=== PATIENT | female | born 1945 | race Caucasian/White ===

== ENCOUNTER 2023-03-01 08:11 | Inpatient (IN) | payer MEDICARE, MEDICAID, SELFPAY ==
[2023-03-01] VITALS (47 sets, daily range): BP systolic 76–166; BP diastolic 31–136; PULSE 83–118; RESP 11–21; TEMP 36.6–36.7; O2SAT 80–100; BMI 35.5
--- NOTE | ~2023-03-01 | CT_ITS ---
EXAMINATION: CTA chest PE protocol DATE: 03/01/2023 13:17 INDICATION: Shortness of breath TECHNIQUE: Computed tomography angiography (CTA) of the chest was performed with 100 mL Omnipaque-350 intravenous contrast timed to evaluate the pulmonary arteries. Coronal maximum intensity projection 3D-reconstructions were created by the technologist. Automated exposure control and iterative reconst ruction technique were employed. Exam dose: 574.14 mGy-cm total exam DLP. COMPARISON: 03/01/2023 portable AP chest FINDINGS: There is diagnostic contrast enhancement of the pulmonary arteries. There is minimal subseg mental intraluminal pulmonary arterial thrombus in the posterior left lower lobe. There is cardiomegaly. No pericardial effusion. There is coronary artery calcification. There is thoracic aortic and great vessel calcification but no thoracic aortic aneurysm or dissection . There is prominent abdominal aortic calcification as well as calcification and apparently a vascular stent at the origin of the right renal artery, calcification at the origins of the left renal artery, celiac trunk and particularly the origin of the superior mesenteric artery. No hilar or mediastinal mass lesion or lymphadenopathy is noted. There are diffuse scattered patchy groundglass infiltrates throughout both lungs involving all lobes. Findings suggest bilateral pneumonia. Normal morphology of the adrenal glands. Status post cholecystectomy. There is evidence of surgical fusion at the C5-6 and C6-7 levels. There is diffuse idiopathic skeleta l hyperostosis of the thoracic spine. There is fusion at T6-T8. IMPRESSION: Minimal posterior segmental left lower lobe pulmonary embolism Diffuse patchy groundglass infiltrates throughout both lungs suggesting bilateral pneumonia, possibly Covid Reviewed, dictated and finalized at [facility]. Reviewed, dictated and finalized at [facility]. MANAGEMENT PROFESSIONAL IMPRESSION: Minimal posterior segmental left lower lobe pulmonary embolism Diffuse patchy groundglass infiltrates throughout both lungs suggesting bilater al pneumonia, possibly Covid
--- NOTE | ~2023-03-01 | XR_ITS ---
XR chest 1V portable DATE: 03/01/2023 09:03 INDICATION: Shortness of breath. Left leg wound. TECHNIQUE: Portable upright AP chest 12/31/2023 at 0858 hours COMPARISON: None FINDINGS: There are scattered mild patchy infiltrates and/atelectasis involving left upper, mid and b ilateral lower lung zones, most prominent in the right lower lung. Cannot exclude pneumonia. Normal heart size. Mild aortic arch calcification. No hilar or mediastinal enlargement is evident. There is minimal if any pleural effusion. No pneumothorax. Osteopenia. Degenerative spurring and mild dextroscoliosis of the thoracic spine. IMPRESSION: Scattered mild patchy bilateral infiltrate and/or atelectasis Reviewed, dictated and finalized at [facility]. ND CONTROL APPROACH TECHNICIAN
--- NOTE | 2023-03-01 08:41 | PC.NURSE ---
Addendum entered by Steffany Dumont, RN 03/01/23 11:25: Winifred, not Stella* Original Note: Per Stella at [facility], upon patient arrival they were to be on 1L NC at , but they did not realize this until about a week in . She states patient had previously been on CPAP, but taken off and placed on 1L NC. Per NH, they have been having to increase to 2-3L NC to keep patient above 90% . EDP Dr. Blackwell made aware.
--- NOTE | 2023-03-01 08:49 | ED.GENADULT ---
HPI - General Adult General Chief complaint: Wound/Laceration Stated complaint: knee pain Time Seen by Provider: 03/01/23 08:17 History of Present Illness HPI narrative: patient is a 77-year-old female who presents the ER for a wound to left knee. In January of 2023 patient had a fall resulting in hematoma to the medial left knee. She ended up having to be hospitalized at [facility] in [place]. She underwent surgery and had a wound VAC placed for a large wound to the area. She is in a senior living down here. She has been seen by Dr. Luque at the with Plastic surgery. Was last evaluated yesterday. There is a plan to do a skin graft to the area. There has been no acute change the area to cause her to come in today. It is noted however that the patient has been on oxygen since going to the senior living. It turns out she is only supposed to be on it at night. She had a sleep study and is supposed to be using CPAP. Unfortunately she has had increased O2 requirement is currently on 2 L constantly. Patient does have some lower extremity edema noted. She has no reports of chest pain or shortness of breath or cough. Related Data Allergies Allergy/AdvReac Type Severity Reaction Status Date / Time No Known Drug Allergies Allergy Verified 03/01/23 14:10 NKA Allergy Unknown Uncoded 08/20/02 12:03 Review of Systems Review of Systems: All systems reviewed & are unremarkable except as noted in HPI and below Constitutional: Constitutional: Reports no additional constitutional complaints ENT: Reports system reviewed and no additional complaints, except as documented Cardiovascular: Cardiovascular: Reports no additional cardiovascular complaints Respiratory: Respiratory: Reports no additional respiratory complaints Gastrointestinal: Gastrointestinal: Reports no additional gastrointestinal complaints Genitourinary: Genitourinary: Reports no additional female genitourinary complaints Musculoskeletal: Musculoskeletal: Reports no additional musculoskeletal complaints Integumentary/Breasts: Comments: Chronic non healing wound left knee [facility] Past Medical History Medical History (Updated 03/01/23 @ 18:17 by Lele Blackwell MD) COPD (chronic obstructive pulmonary disease) History of diabetes mellitus, type II Surgical History Surgical History (Updated 03/01/23 @ 08:53 by Lele Blackwell MD) History of carpal tunnel surgery History of cholecystectomy History of hysterectomy Family History Family History (Updated 07/29/16 @ 23:19 by DOCTOR UNKNOWN) Father Family history of obesity Cerebrovascular accident Family history of diabetes mellitus in first degree relative Mother Family history of obesity Family history of diabetes mellitus in first degree relative Sibling Family history of kidney disease Family history of diabetes mellitus in first degree relative Social History Social History Smoking status: Never smoker Alcohol intake: never Exam Narrative: GENERAL: Chronically ill-appearing, well-nourished, and in no acute distress. HEAD: Normocephalic, atraumatic. ENT: Mucous membranes moist. NECK: Supple. CHEST: Clear to auscultation. No respiratory distress. HEART: Regular rate and rhythm. Normal peripheral pulses. ABDOMEN: Soft, nontender, nondistended. EXTREMITIES: Normal range of motion. +2 edema. SKIN: Warm, dry, no rash. large nonhealing wound medial left knee down to the muscle. No overt cellulitis or purulent drainage. 4X4s saturated with serous fluid. NEURO: Alert and oriented x3. PSYCH: Normal mood and affect. Course Course Emergency Course: Patient with small PE and also pneumonia. IV antibiotics started. Patient will be started heparin in case debridement is required of her wound. Patient accepted by hospitalist. Vital Signs Vital signs: Vital Signs Temperature 98.1 F 03/01/23 08:23 Pulse Rate 88 03/01/23 08:23 Respiratory Rate
[2023-03-01 08:57] LABS: Basophils Absolute Auto 0.1 K/mm3 (0.0-0.1); Basophils Percent Auto 0.8 % (0.2-1.2); Eosinophils Absolute Auto 0.3 K/mm3 (0-0.3); Eosinophils Percent Auto 3.8 % (0-4.4); Hematocrit 34.3 % (37.0-47.0); Hemoglobin 10.2 g/dL (12.0-15.0); Immature Granulocyte Absolute 0.12 K/mm3 (0.00-0.031); Immature Granulocyte Percent A 1.5 % (0-0.5); Lymphocytes Absolute Auto 1.12 K/mm3 (0.9-3.2); Lymphocytes Percent Auto 14.3 % (18.3-44.2); Mean Corpuscular HGB Conc 29.7 g/dl (32-36); Mean Corpuscular Hemoglobin 28.3 pg (26-34); Mean Corpuscular Volume 95.3 fl (80-100); Mean Platelet Volume 9.7 fl (7.4-10.4); Monocytes Absolute Auto 0.8 K/mm3 (0.1-0.6); Monocytes Percent Auto 10.1 % (2.6-8.5); Neutrophils Absolute Auto 5.5 K/mm3 (1.3-6.7); Neutrophils Percent Auto 69.5 % (45.5-73.1); Platelet Count Result 173 k/mm3 (150-375); Red Cell Distribution Width 14.7 % (11.5-14.5); White Blood Count 7.9 K/mm3 (4.5-10.0)
[2023-03-01 09:11] LABS: Alanine Aminotransferase 7 U/L (6-35); Alkaline Phosphatase 72 U/L (38-126); Anion Gap 9 mmol/L (8-16); Aspartate Amino Transferase 18 U/L (14-36); Bilirubin,Total 0.4 mg/dL (0.2-1.3); Blood Urea Nitrogen 32 mg/dL (7-17); Calcium 8.1 mg/dL (8.4-10.2); Carbon Dioxide 26 mmol/L (22-30); Chloride 103 mmol/L (98-107); Estimated Glomerular Filt Rate 48; Glucose 203 mg/dL (65-110); Potassium 4.3 mmol/L (3.4-5.0); Sodium 138 mmol/L (137-145)
[2023-03-01 09:21] LABS: NT Pro B Type Natriuretic Pept 569 pg/mL (19.9-100)
[2023-03-01 09:46] LABS: Glucose Point of Care 213 mg/dl (65-105)
[2023-03-01 14:32] LABS: Glucose Point of Care 195 mg/dl (65-105)
[2023-03-01] MEDS: HEPARIN SOD/D5W 100 UNITS/ML 25,000 UNITS/250 ML BAG 10 UNITS IV CONT (14:35)
[2023-03-01] MEDS: HEPARIN SODIUM 5,000 UNITS/ML VIAL 4500 UNITS IV PUSH (14:36)
[2023-03-01 15:02] LABS: Prothrombin Time 13.8 Seconds (11.1-14.7)
[2023-03-01 15:13] LABS: Influenza A QL RT-PCR Negative (Negative); Influenza B QL RT-PCR Negative (Negative); RSV RNA, RT-PCR Negative (Negative); SARS-CoV-2 RNA PCR Negative (Negative)
[2023-03-01 16:47] LABS: Glucose Point of Care 156 mg/dl (65-105)
[2023-03-01] MEDS: HYDROcodone/acetaminophen (*CRX) 5-325 MG TABLET 1 TAB PO (18:06)
--- NOTE | 2023-03-01 21:17 | ADMGEN ---
This patient, Caroline Rivas, was admitted to IMU Room 207-01. Patient/family oriented to hospital policies and general routines including ID bracelet, bed and alarms, visiting hours, pain management, procedures, bathroom and other care routines, personal items, smoking policy, room service/diet, and visiting hours. Information on how to activate the Rapid Response Team has been discussed. Patient/Family are encouraged to report perceived risks to care and to ask questions if they do not understand what they are told or what they should do.
--- NOTE | 2023-03-01 23:17 | PM.IMHP ---
H&P: HPI History of Present Illness Date/Time: 03/01/23 23:17 Chief Complaint: SOB, Wound Narrative: 77 y/o F presents here with SOB and wound to L knee with PMH of COPD, DM2, HTN, HLD, and RLS. Patient presents here with increasing shortness of breath over the past 4 days with a productive cough, unable to describe sputum. Reports subjective chills and fatigue. Reports that her daughter took her temperature and reported a fever, unclear what reading was but patient does not report subjective fevers. Reports one episode of acid-reflux like symptoms with one episode of emesis after SOB started without sensation of foreign material entering airway. Also following with plastics for open wound to left knee. Patient had fall mid-January where she subsequently developed a hematoma that was surgically managed at [facility] in [facility] one week after injury - likely underwent an evacuation and debridement with wound vac placement post-procedure. Has been seeing wound care at her facility, currently staying at [facility]. Saw Marina Luque MD with Plastic Surgery yesterday (02/28) for this wound. Plan was for left thigh debridement and skin graft. Initially sent here for the pain patient was experiencing with vac changes, no current changes in wound per patient and it was noted that patient had new O2 requirement since [facility] admission. Patient had previous sleep study which qualified her for a CPAP at night. Has no history of supplemental O2 requirement beyond the CPAP at night. Review of Systems Review of Systems: All systems reviewed & are unremarkable except as noted in HPI and below PMFSH Past Medical History Medical History COPD (chronic obstructive pulmonary disease) DM2 (diabetes mellitus, type 2) Essential (primary) hypertension HLD (hyperlipidemia) RLS (restless legs syndrome) Surgical History Surgical History History of carpal tunnel surgery History of cholecystectomy History of hysterectomy Family History Family History Father Family history of obesity Cerebrovascular accident Mother Family history of diabetes mellitus in first degree relative Family history of obesity Sibling Family history of kidney disease Social History Social History Smoking packs per day: 1 Smoking cigarettes per day: 20.0 Years smoked: 20 Smoking pack-years: 20.00 Smoking status: Former smoker Alcohol intake: never Substance use: never Do You Feel Safe in your Home?: Yes Lack of Transportation: No Lack of Food: Never True Current Housing: I Have Housing Concerned About Future Housing: No Difficulty Paying Gas/Electric Bills: No Difficulty Paying for Meds: No Currently Unemployed: No Education: Decline to Answer Difficulty w/ Childcare or Family Care: No Spiritual care concerns: No Meds Home Medications and Allergies Home Medications Medication Instructions Recorded Confirmed Type hydrocodone 7.5 mg-acetaminophen 2 tablet PO Q4H PRN pain #180 tabs 02/10/23 03/01/23 Rx 325 mg tablet albuterol sulfate 2 puff inhalation PRN 03/01/23 03/01/23 History atorvastatin 40 mg tablet 40 mg PO HS 03/01/23 03/01/23 History bimatoprost 0.01 % eye drops 1 drp EACH EYE HS 03/01/23 03/01/23 History (Cindi) bisacodyl 5 mg PO PRN 03/01/23 03/01/23 History carbidopa ER 25 mg-levodopa 100 mg 25 - 100 tablet PO TID 03/01/23 03/01/23 History tablet,extended release clonazepam 1 mg tablet 1 mg PO QHS #30 tabs 03/01/23 03/01/23 Rx diltiazem HCl 60 mg tablet 60 mg PO TID 03/01/23 03/01/23 History dorzolamide 22.3 mg-timolol 6.8 1 drp EACH EYE BID 03/01/23 03/01/23 History mg/mL eye drops furosemide 20 mg tablet 20 mg PO QID 03/01/23 03/01/23 History gabapentin 100
[2023-03-02] VITALS (17 sets, daily range): BP systolic 112–155; BP diastolic 34–68; PULSE 77–96; RESP 16–18; TEMP 36.1–37.2; O2SAT 93–99
[2023-03-02] MEDS: CEFEPIME 2 GM/NS 50 ML 2 GM/50 ML BAG IVPB ×3 (01:10→21:47)
[2023-03-02 01:50] LABS: Partial Thromboplastin Time 78.5 SECONDS (22.3-36.8)
[2023-03-02] MEDS: VANCOMYCIN 2,000 MG/NS 500 ML 2,000 MG/500 ML BAG 250 MG IVPB (02:00)
[2023-03-02 05:27] LABS: Basophils Percent Auto 0.7 % (0.2-1.2); Eosinophils Absolute Auto 0.2 K/mm3 (0-0.3); Eosinophils Percent Auto 3.2 % (0-4.4); Hemoglobin 9.5 g/dL (12.0-15.0); Immature Granulocyte Absolute 0.09 K/mm3 (0.00-0.031); Immature Granulocyte Percent A 1.5 % (0-0.5); Lymphocytes Absolute Auto 1.36 K/mm3 (0.9-3.2); Lymphocytes Percent Auto 22.9 % (18.3-44.2); Mean Corpuscular HGB Conc 29.7 g/dl (32-36); Mean Corpuscular Hemoglobin 27.5 pg (26-34); Mean Corpuscular Volume 92.8 fl (80-100); Mean Platelet Volume 9.9 fl (7.4-10.4); Monocytes Absolute Auto 0.7 K/mm3 (0.1-0.6); Monocytes Percent Auto 11.8 % (2.6-8.5); Neutrophils Absolute Auto 3.6 K/mm3 (1.3-6.7); Neutrophils Percent Auto 59.9 % (45.5-73.1); Platelet Count Result 164 k/mm3 (150-375); Red Blood Count 3.45 M/mm3 (4.2-5.4); Red Cell Distribution Width 14.6 % (11.5-14.5)
[2023-03-02 05:56] LABS: Alanine Aminotransferase 7 U/L (6-35); Albumin Level 2.8 g/dL (3.5-5.1); Alkaline Phosphatase 73 U/L (38-126); Anion Gap 2 mmol/L (8-16); Aspartate Amino Transferase 16 U/L (14-36); Bilirubin,Total 0.5 mg/dL (0.2-1.3); Blood Urea Nitrogen 20 mg/dL (7-17); CRP 6.4 mg/dL (<1.0); Calcium 7.9 mg/dL (8.4-10.2); Carbon Dioxide 33 mmol/L (22-30); Chloride 105 mmol/L (98-107); Estimated Glomerular Filt Rate 60; Glucose 175 mg/dL (65-110); Potassium 4.1 mmol/L (3.4-5.0); Sodium 140 mmol/L (137-145)
[2023-03-02 06:00] LABS: Hemoglobin A1C 6.4 % (<5.7)
[2023-03-02 07:20] LABS: Partial Thromboplastin Time 73.4 SECONDS (22.3-36.8)
[2023-03-02 07:51] LABS: Glucose Point of Care 201 mg/dl (65-105)
[2023-03-02 08:24] LABS: MRSA (PCR) NOT DETECTED (NOT DETECTE)
--- NOTE | 2023-03-02 08:28 | PM.IMPN ---
Progress Note: A&P Assessment and Plan (1) DM2 (diabetes mellitus, type 2): Code(s): E11.9 - Type 2 diabetes mellitus without complications Status: Acute (2) Essential (primary) hypertension: Code(s): I10 - Essential (primary) hypertension Status: Acute (3) Pneumonia: Qualifiers: Laterality: bilateral Lung location: unspecified part of lung Pneumonia type: due to unspecified organism Qualified Code(s): J18.9 - Pneumonia, unspecified organism Code(s): J18.9 - Pneumonia, unspecified organism Status: Acute (4) Hypoxia: Code(s): R09.02 - Hypoxemia Status: Acute (5) Pulmonary embolism: Qualifiers: Pulmonary embolism type: single subsegmental (without acute cor pulmonale) Qualified Code(s): I26.93 - Single subsegmental pulmonary embolism without acute cor pulmonale Code(s): I26.99 - Other pulmonary embolism without acute cor pulmonale Status: Acute (6) Open wound of leg: Qualifiers: Encounter type: subsequent encounter Laterality: left Qualified Code(s): S81.802D - Unspecified open wound, left lower leg, subsequent encounter Code(s): S81.809A - Unspecified open wound, unspecified lower leg, initial encounter Status: Acute Plan 77F w/ PMH COPD, IDDM, HTN, HLD, RLS, chronic respiratory failure on 1L NC QHS, presents with left leg pain and shortness of breath. Admitted on 03/01/23 for acute hypoxic respiratory failure. # acute on chronic hypoxic respiratory failure - unclear if advancing of her chronic respiratory failure (subjectively insidious) or due to PE. cont to wean as tolerated # HCAP - on cefepime and vanc started 03/01. although she does not appear toxic. MRSA screen pending. WBC normal. check WBC and procal tomorrow and begin to de escalate promptly # PE - likely 2/2 to immobility due to left leg wound. - d/c heparin gtt and start eliquis at 10mg po bid - counseled on risk vs benefit fo anticoagulation # IDDM - accuchecks and ISS # HTN - controlled. cpm # open wound of left - granulating. was at [facility] for rehab and wound care. cont wound vac, wound consult placed. plastics consulted. FEN: saline lock IV, diabetic heart healthy diet GI prophylaxis: on home dosing DVT prophylaxis: eliquis Lines: pIV Code Status: Full Code Dispo: stable More than 35 minutes spent on chart review, patient interaction and assessment and plan. Subjective Date/time seen: 03/02/23 08:28 Interval history: NAOE. patient appears tired although she is ready to sit up and eat. she denies shortness of breath or other symptoms. Review of Systems Review of Systems: All systems reviewed & are unremarkable except as noted in HPI and below (subjective) Exam Const: General: comfortable and no acute distress Eyes: Pupils: Equal, round and reactive pupils present Neck: Neck: supple Resp: Effort & Inspection: normal respiratory effort Auscultation: clear to auscultation bilaterally Cardio: Rate: regular rate Rhythm: regular rhythm Heart sounds: no gallops and no murmurs GI: GI Palp: Yes Soft to palpation and No Tenderness to palpation present (GI) Extrem: General: no edema Objective Data Vital Signs Vital Signs: Vital Signs - 24 hr 03/01/23 08:33 03/01/23 09:08 03/01/23 09:30 Temperature Pulse Rate 94 86 89 Respiratory Rate 14 14 12 Blood Pressure 120/31 L 118/48 L 144/103 H Pulse Oximetry 100 97 86 L Oxygen Delivery Oxygen Flow Rate 03/01/23 09:46 03/01/23 10:01 03/01/23 10:16 Temperature Pulse Rate 87 83 85 Respiratory Rate 15 12 11 L Blood Pressure 127/45 L 136/45 L 134/49 L Pulse Oximetry 87 L 99 100 Oxygen Delivery Oxygen Flow Rate 03/01/23 10:30 03/01/23 10:31 03/01/23 10:42 Temperature Pulse Rate 90 89 87 Respiratory Rate 13 16 16 Blood Pressure 76/55 L 138/50 L Pulse Oximetry 95 100 Oxygen Delivery Oxygen Flow Rate 03/01/23 10:45 03/01/23
[2023-03-02] MEDS: FUROSEMIDE 20 MG TABLET PO ×4 (08:51→21:46)
[2023-03-02] MEDS: APIXABAN 5 MG TABLET 10 MG PO ×2 (08:51→21:48)
[2023-03-02] MEDS: lisinopriL 5 MG TABLET PO (08:52)
[2023-03-02] MEDS: PANTOPRAZOLE 40 MG TABLET PO (08:52)
[2023-03-02] MEDS: CARBIDOPA/LEVODOPA 25/100 MG TABLET 3 TABLET PO ×3 (08:52→16:08)
[2023-03-02] MEDS: dilTIAZem HCL 60 MG TABLET PO ×3 (08:52→16:08)
[2023-03-02] MEDS: POTASSIUM CHLORIDE 10 MEQ ER TABLET PO ×4 (08:53→21:46)
[2023-03-02] MEDS: GABAPENTIN 300 MG CAPSULE PO ×2 (08:53→16:09)
[2023-03-02 12:40] LABS: Glucose Point of Care 278 mg/dl (65-105)
[2023-03-02] MEDS: INSULIN ASPART (*BKC) 100 UNITS/ML 8 UNITS SUB-Q ×2 (12:47→16:37)
[2023-03-02] MEDS: INSULIN ASPART (*BKC) 100 UNITS/ML SUB-Q ×3 (12:47→21:46)
[2023-03-02] MEDS: DORZOLAMIDE/TIMOLOL OPHTH SOL 10 ML BOTTLE 1 DROP EACH EYE ×2 (13:00→21:49)
[2023-03-02 16:32] LABS: Glucose Point of Care 244 mg/dl (65-105)
[2023-03-02 20:00] LABS: Glucose Point of Care 223 mg/dl (65-105)
[2023-03-02] MEDS: ATORVASTATIN 40 MG TABLET PO (21:46)
[2023-03-02] MEDS: MIRTAZAPINE 15 MG TABLET 30 MG PO (21:46)
[2023-03-02] MEDS: INSULIN GLARGINE (*BKC) 100 UNITS/ML 27 UNITS SUB-Q (21:46)
[2023-03-02] MEDS: LATANOPROST 0.005% OP SOLN 2.5 ML BTL 1 DROP EACH EYE (21:49)
[2023-03-03] VITALS (17 sets, daily range): BP systolic 111–167; BP diastolic 32–77; PULSE 73–101; RESP 18–20; TEMP 35.9–36.8; O2SAT 93–99
[2023-03-03 04:29] LABS: Basophils Absolute Auto 0.1 K/mm3 (0.0-0.1); Basophils Percent Auto 0.7 % (0.2-1.2); Eosinophils Absolute Auto 0.4 K/mm3 (0-0.3); Eosinophils Percent Auto 4.6 % (0-4.4); Hematocrit 34.3 % (37.0-47.0); Hemoglobin 10.3 g/dL (12.0-15.0); Immature Granulocyte Absolute 0.12 K/mm3 (0.00-0.031); Immature Granulocyte Percent A 1.3 % (0-0.5); Lymphocytes Absolute Auto 1.19 K/mm3 (0.9-3.2); Lymphocytes Percent Auto 12.5 % (18.3-44.2); Mean Corpuscular Hemoglobin 27.5 pg (26-34); Mean Corpuscular Volume 91.7 fl (80-100); Monocytes Absolute Auto 0.9 K/mm3 (0.1-0.6); Monocytes Percent Auto 9.8 % (2.6-8.5); Neutrophils Absolute Auto 6.8 K/mm3 (1.3-6.7); Neutrophils Percent Auto 71.1 % (45.5-73.1); Platelet Count Result 180 k/mm3 (150-375); Red Blood Count 3.74 M/mm3 (4.2-5.4); Red Cell Distribution Width 14.3 % (11.5-14.5); White Blood Count 9.5 K/mm3 (4.5-10.0)
[2023-03-03 04:44] LABS: Anion Gap 4 mmol/L (8-16); Blood Urea Nitrogen 15 mg/dL (7-17); Calcium 8.4 mg/dL (8.4-10.2); Carbon Dioxide 33 mmol/L (22-30); Chloride 102 mmol/L (98-107); Estimated Glomerular Filt Rate > 60; Glucose 187 mg/dL (65-110); Potassium 3.5 mmol/L (3.4-5.0); Sodium 139 mmol/L (137-145)
[2023-03-03 05:00] LABS: Procalcitonin 0.1 ng/mL
[2023-03-03] MEDS: INSULIN ASPART (*BKC) 100 UNITS/ML 8 UNITS SUB-Q ×3 (08:09→17:18)
[2023-03-03 08:26] LABS: Glucose Point of Care 184 mg/dl (65-105)
--- NOTE | 2023-03-03 09:55 | PM.IMPN ---
Progress Note: A&P Assessment and Plan (1) Hypoxia: Code(s): R09.02 - Hypoxemia Status: Acute (2) Pulmonary embolism: Qualifiers: Pulmonary embolism type: single subsegmental (without acute cor pulmonale) Qualified Code(s): I26.93 - Single subsegmental pulmonary embolism without acute cor pulmonale Code(s): I26.99 - Other pulmonary embolism without acute cor pulmonale Status: Acute (3) Open wound of leg: Qualifiers: Encounter type: subsequent encounter Laterality: left Qualified Code(s): S81.802D - Unspecified open wound, left lower leg, subsequent encounter Code(s): S81.809A - Unspecified open wound, unspecified lower leg, initial encounter Status: Acute (4) Pneumonia: Qualifiers: Laterality: bilateral Lung location: unspecified part of lung Pneumonia type: due to unspecified organism Qualified Code(s): J18.9 - Pneumonia, unspecified organism Code(s): J18.9 - Pneumonia, unspecified organism Status: Acute (5) DM2 (diabetes mellitus, type 2): Code(s): E11.9 - Type 2 diabetes mellitus without complications Status: Acute (6) Essential (primary) hypertension: Code(s): I10 - Essential (primary) hypertension Status: Acute Plan 77F w/ PMH COPD, IDDM, HTN, HLD, RLS, chronic respiratory failure on 1L NC QHS, presents with left leg pain and shortness of breath. She lives by herself usually but was temporarily at [facility] for wound care. Admitted on 03/01/23 for acute hypoxic respiratory failure. # acute on chronic hypoxic respiratory failure - unclear if advancing of her chronic respiratory failure (subjectively insidious) or due to PE. - still requiring 4L. cont to wean as tolerated. # HCAP - on cefepime and vanc started 03/01. MRSA nares negative, vanc dc'ed. she does not appear toxic. - WBC and procal wnl - cont cefepime. de escalate tomorrow if she is still stable. # PE - likely 2/2 to immobility due to left leg wound. - d/c heparin gtt and start eliquis at 10mg po bid - counseled on risk vs benefit fo anticoagulation # IDDM - accuchecks and ISS # diarrhea - started on 03/02/23. check c diff - pt tearful because it is embarrassing. if c diff negative start imodium # HTN - controlled. cpm # open wound of left - granulating. was at [facility] for rehab and wound care. cont wound vac, wound consult placed. plastics consulted. FEN: saline lock IV, diabetic heart healthy diet GI prophylaxis: on home dosing DVT prophylaxis: eliquis Lines: pIV Code Status: Full Code Dispo: stable More than 35 minutes spent on chart review, patient interaction and assessment and plan. Subjective Date/time seen: 03/03/23 09:55 Interval history: naoe. patient is tearful. she has been having many loose stools for one day and complains it is embarrassing. she reports good breathing and no chest pain. no other complaints otherwise. Review of Systems Review of Systems: All systems reviewed & are unremarkable except as noted in HPI and below (subjective) Exam Const: General: comfortable and no acute distress Eyes: Pupils: Equal, round and reactive pupils present Neck: Neck: supple Resp: Effort & Inspection: normal respiratory effort Auscultation: clear to auscultation bilaterally, no crackles, no rales and no rhonchi Cardio: Rate: regular rate Rhythm: regular rhythm Heart sounds: no gallops, no murmurs and no rubs GI: GI Palp: Yes Soft to palpation and No Tenderness to palpation present (GI) Extrem: General: no edema Objective Data Vital Signs Vital Signs: Vital Signs - 24 hr 03/02/23 10:00 03/02/23 12:00 03/02/23 12:00 Temperature 97.8 F Pulse Rate 92 92 90 Respiratory Rate 18 Blood Pressure 155/50 H Pulse Oximetry 93 Oxygen Delivery Oxygen Flow Rate 03/02/23 12:00 03/02/23 16:00 03/02/23 16:00 Temperature 98.9 F Pulse Rate 90 90 83 Respiratory Rate 18 18 18 Blood Pressure
[2023-03-03] MEDS: DORZOLAMIDE/TIMOLOL OPHTH SOL 10 ML BOTTLE 1 DROP EACH EYE ×2 (11:19→20:46)
[2023-03-03] MEDS: POTASSIUM CHLORIDE 10 MEQ ER TABLET PO ×4 (11:23→20:46)
[2023-03-03] MEDS: CARBIDOPA/LEVODOPA 25/100 MG TABLET 3 TABLET PO ×3 (11:24→17:17)
[2023-03-03] MEDS: PANTOPRAZOLE 40 MG TABLET PO (11:24)
[2023-03-03] MEDS: CEFEPIME 2 GM/NS 50 ML 2 GM/50 ML BAG IVPB ×2 (11:24→20:41)
[2023-03-03] MEDS: APIXABAN 5 MG TABLET 10 MG PO ×2 (11:25→20:46)
[2023-03-03] MEDS: dilTIAZem HCL 60 MG TABLET PO ×3 (11:25→17:17)
[2023-03-03] MEDS: GABAPENTIN 300 MG CAPSULE PO ×2 (11:25→17:17)
[2023-03-03] MEDS: FUROSEMIDE 20 MG TABLET PO ×4 (11:26→20:46)
[2023-03-03] MEDS: lisinopriL 5 MG TABLET PO (11:28)
[2023-03-03] MEDS: INSULIN ASPART (*BKC) 100 UNITS/ML SUB-Q (11:33)
[2023-03-03 11:42] LABS: Glucose Point of Care 245 mg/dl (65-105)
[2023-03-03 17:01] LABS: Glucose Point of Care 187 mg/dl (65-105)
[2023-03-03] MEDS: VANCOMYCIN HCL 125 MG ORAL CAPSULE PO (18:25)
[2023-03-03 20:28] LABS: Toxigenic C. Diff NEGATIVE (NEGATIVE)
[2023-03-03] MEDS: MIRTAZAPINE 15 MG TABLET 30 MG PO (20:45)
[2023-03-03] MEDS: clonazePAM (*CRX) 0.5 MG TABLET 1 MG PO (20:45)
[2023-03-03] MEDS: QUEtiapine FUMARATE 25 MG TABLET 150 MG PO (20:45)
[2023-03-03] MEDS: ATORVASTATIN 40 MG TABLET PO (20:46)
[2023-03-03 20:47] LABS: Glucose Point of Care 193 mg/dl (65-105)
[2023-03-03] MEDS: LATANOPROST 0.005% OP SOLN 2.5 ML BTL 1 DROP EACH EYE (20:48)
[2023-03-03] MEDS: INSULIN GLARGINE (*BKC) 100 UNITS/ML 27 UNITS SUB-Q (20:51)
[2023-03-04] VITALS (11 sets, daily range): BP systolic 122–160; BP diastolic 38–56; PULSE 74–112; RESP 16–20; TEMP 36.3–36.9; O2SAT 90–97
[2023-03-04] MEDS: VANCOMYCIN HCL 125 MG ORAL CAPSULE PO ×2 (00:14→06:01)
[2023-03-04 05:19] LABS: Basophils Absolute Auto 0.1 K/mm3 (0.0-0.1); Basophils Percent Auto 0.9 % (0.2-1.2); Eosinophils Absolute Auto 0.6 K/mm3 (0-0.3); Eosinophils Percent Auto 8.2 % (0-4.4); Hematocrit 33.2 % (37.0-47.0); Hemoglobin 9.9 g/dL (12.0-15.0); Immature Granulocyte Absolute 0.13 K/mm3 (0.00-0.031); Immature Granulocyte Percent A 1.7 % (0-0.5); Lymphocytes Absolute Auto 1.46 K/mm3 (0.9-3.2); Lymphocytes Percent Auto 18.6 % (18.3-44.2); Mean Corpuscular HGB Conc 29.8 g/dl (32-36); Mean Corpuscular Hemoglobin 27.6 pg (26-34); Mean Corpuscular Volume 92.5 fl (80-100); Mean Platelet Volume 9.6 fl (7.4-10.4); Monocytes Absolute Auto 0.9 K/mm3 (0.1-0.6); Monocytes Percent Auto 11.6 % (2.6-8.5); Neutrophils Absolute Auto 4.6 K/mm3 (1.3-6.7); Platelet Count Result 164 k/mm3 (150-375); Red Blood Count 3.59 M/mm3 (4.2-5.4); Red Cell Distribution Width 14.2 % (11.5-14.5); White Blood Count 7.8 K/mm3 (4.5-10.0)
[2023-03-04 05:28] LABS: Anion Gap 4 mmol/L (8-16); Blood Urea Nitrogen 13 mg/dL (7-17); Carbon Dioxide 34 mmol/L (22-30); Chloride 102 mmol/L (98-107); Estimated Glomerular Filt Rate 60; Glucose 103 mg/dL (65-110); Potassium 3.2 mmol/L (3.4-5.0); Sodium 140 mmol/L (137-145)
--- NOTE | 2023-03-04 08:27 | PM.DS ---
DS: Admitting Diagnosis Discharge Date 03/04/23 Admitting Diagnosis shortness of breath DS: Discharge Diagnosis Discharge Diagnosis (1) Hypokalemia: Code(s): E87.6 - Hypokalemia Status: Acute (2) DM2 (diabetes mellitus, type 2): Code(s): E11.9 - Type 2 diabetes mellitus without complications Status: Acute (3) Essential (primary) hypertension: Code(s): I10 - Essential (primary) hypertension Status: Acute (4) Pneumonia: Qualifiers: Laterality: bilateral Lung location: unspecified part of lung Pneumonia type: due to unspecified organism Qualified Code(s): J18.9 - Pneumonia, unspecified organism Code(s): J18.9 - Pneumonia, unspecified organism Status: Acute (5) Hypoxia: Code(s): R09.02 - Hypoxemia Status: Acute (6) Pulmonary embolism: Qualifiers: Pulmonary embolism type: single subsegmental (without acute cor pulmonale) Qualified Code(s): I26.93 - Single subsegmental pulmonary embolism without acute cor pulmonale Code(s): I26.99 - Other pulmonary embolism without acute cor pulmonale Status: Acute (7) Open wound of leg: Qualifiers: Encounter type: subsequent encounter Laterality: left Qualified Code(s): S81.802D - Unspecified open wound, left lower leg, subsequent encounter Code(s): S81.809A - Unspecified open wound, unspecified lower leg, initial encounter Status: Acute DS: Summary Hospital Course Hospital Course: 77F w/ PMH COPD, IDDM, HTN, HLD, RLS, chronic respiratory failure on 1L NC QHS, Parkinson's, chronic wound left leg receiving wound vac, anisocoria post cataract surgery left eye, presents with left leg pain and shortness of breath. She usually lives by herself at home but has been temporarily at [facility] for wound care. Admitted on 03/01/23 for acute hypoxic respiratory failure. Ms. Rivas was found to be in acute on chronic hypoxic respiratory failure likely due to PE. Her o2 eventually weaned off during the day and she was started on apixaban without issue. She is to follow up with PCP on this matter, discontinuation of anticoagulation is a consideration as this was likely spurred by her immobility 2/2 left leg wound. She was also treated for possible HCAP although appeared largely nontoxic and without concerning symptomatology so she is dc'ed on another 3 days of Augmentin for a total 7 day course. She will also be dc'ed on Loperamide as she developed diarrhea likely 2/2 to abx use, her C diff PCR was negative. The patient is stable for discharge on 03/04 back to [facility] for wound care and should resume wound care and wound vac as instructed by Dr. Luque. She is being scheduled for debridement and stsg soon. The patient was in understanding and in agreement with this plan. She was full code during admission. More than 30 minutes spent on discharge planning and documentation. Time Spent with Patient Time attestation: Total time spent providing and/or coordinating discharge services: Exam Const: General: cooperative and no acute distress Resp: Effort & Inspection: normal respiratory effort Auscultation: clear to auscultation bilaterally Cardio: Rate: regular rate Rhythm: regular rhythm Heart sounds: S1 normal heart sound present and S2 normal heart sound present GI: GI Palp: No abdominal tenderness Auscultation: normal bowel sounds DS: Data Data Completed and Pending Labs on day of discharge: Labs from last 24 hours 03/04/23 03/03/23 03/03/23 05:03 20:42 16:39 WBC 7.8 RBC 3.59 L Hgb 9.9 L Hct 33.2 L MCV 92.5 MCH 27.6 MCHC 29.8 L RDW 14.2 Plt Count 164 MPV 9.6 Immature Gran % (Auto) 1.7 H Neut % (Auto) 59.0 Lymph % (Auto) 18.6 Hill % (Auto) 11.6 H Eos % (Auto) 8.2 H Baso % (Auto) 0.9 Lymph # (Auto) 1.46 Hill # (Auto) 0.9 H Eos # (Auto) 0.6 H Baso # (Auto) 0.1 Abs Immat Gran (auto) 0.13 H
[2023-03-04 08:33] LABS: Glucose Point of Care 119 mg/dl (65-105)
[2023-03-04] MEDS: CEFEPIME 2 GM/NS 50 ML 2 GM/50 ML BAG IVPB ×2 (11:11→20:09)
[2023-03-04] MEDS: CARBIDOPA/LEVODOPA 25/100 MG TABLET 3 TABLET PO ×3 (11:11→16:58)
[2023-03-04] MEDS: DORZOLAMIDE/TIMOLOL OPHTH SOL 10 ML BOTTLE 1 DROP EACH EYE ×2 (11:12→20:47)
[2023-03-04] MEDS: FUROSEMIDE 20 MG TABLET PO ×4 (11:13→20:44)
[2023-03-04] MEDS: APIXABAN 5 MG TABLET 10 MG PO ×2 (11:13→20:44)
[2023-03-04] MEDS: PANTOPRAZOLE 40 MG TABLET PO (11:13)
[2023-03-04] MEDS: lisinopriL 5 MG TABLET PO (11:20)
[2023-03-04] MEDS: POTASSIUM CHLORIDE 10 MEQ ER TABLET PO ×4 (11:20→20:44)
[2023-03-04] MEDS: dilTIAZem HCL 60 MG TABLET PO ×3 (11:21→17:00)
[2023-03-04] MEDS: GABAPENTIN 300 MG CAPSULE PO ×2 (11:21→16:58)
[2023-03-04] MEDS: INSULIN ASPART (*BKC) 100 UNITS/ML SUB-Q (11:23)
[2023-03-04] MEDS: INSULIN ASPART (*BKC) 100 UNITS/ML 8 UNITS SUB-Q ×2 (11:24→17:30)
[2023-03-04 11:53] LABS: Glucose Point of Care 235 mg/dl (65-105)
[2023-03-04 17:22] LABS: Glucose Point of Care 197 mg/dl (65-105)
[2023-03-04 20:41] LABS: Glucose Point of Care 181 mg/dl (65-105)
[2023-03-04] MEDS: ATORVASTATIN 40 MG TABLET PO (20:44)
[2023-03-04] MEDS: MIRTAZAPINE 15 MG TABLET 30 MG PO (20:44)
[2023-03-04] MEDS: clonazePAM (*CRX) 0.5 MG TABLET 1 MG PO (20:44)
[2023-03-04] MEDS: QUEtiapine FUMARATE 25 MG TABLET 150 MG PO (20:45)
[2023-03-04] MEDS: LATANOPROST 0.005% OP SOLN 2.5 ML BTL 1 DROP EACH EYE (20:48)
[2023-03-04] MEDS: INSULIN GLARGINE (*BKC) 100 UNITS/ML 27 UNITS SUB-Q (20:50)
[2023-03-04] MEDS: HYDROcodone/acetaminophen (*CRX) 5-325 MG TABLET 1 TAB PO (21:37)
[2023-03-05 05:32] VITALS: BP 120/50; PULSE 88; RESP 16; TEMP 36.9; O2SAT 90
[2023-03-05 08:32] LABS: Glucose Point of Care 143 mg/dl (65-105)
[2023-03-05 08:35] VITALS: BP 115/46; PULSE 85; O2SAT 98
[2023-03-05] MEDS: POTASSIUM CHLORIDE 10 MEQ ER TABLET PO ×4 (08:35→21:12)
[2023-03-05] MEDS: lisinopriL 5 MG TABLET PO (08:36)
[2023-03-05] MEDS: GABAPENTIN 300 MG CAPSULE PO ×2 (08:36→17:38)
[2023-03-05] MEDS: APIXABAN 5 MG TABLET 10 MG PO ×2 (08:36→21:12)
[2023-03-05] MEDS: dilTIAZem HCL 60 MG TABLET PO ×3 (08:36→17:38)
[2023-03-05] MEDS: PANTOPRAZOLE 40 MG TABLET PO (08:36)
[2023-03-05] MEDS: CARBIDOPA/LEVODOPA 25/100 MG TABLET 3 TABLET PO ×3 (08:36→17:38)
[2023-03-05] MEDS: CEFEPIME 2 GM/NS 50 ML 2 GM/50 ML BAG IVPB ×2 (08:36→21:13)
[2023-03-05] MEDS: FUROSEMIDE 20 MG TABLET PO ×4 (08:36→21:12)
[2023-03-05] MEDS: INSULIN ASPART (*BKC) 100 UNITS/ML 8 UNITS SUB-Q ×3 (08:39→17:39)
[2023-03-05] MEDS: DORZOLAMIDE/TIMOLOL OPHTH SOL 10 ML BOTTLE 1 DROP EACH EYE ×2 (08:39→21:12)
[2023-03-05 09:10] VITALS: O2SAT 98
--- NOTE | 2023-03-05 11:19 | PM.IMPN ---
Progress Note: A&P Assessment and Plan (1) Pneumonia: Qualifiers: Laterality: bilateral Lung location: unspecified part of lung Pneumonia type: due to unspecified organism Qualified Code(s): J18.9 - Pneumonia, unspecified organism Code(s): J18.9 - Pneumonia, unspecified organism Status: Acute (2) Pulmonary embolism: Qualifiers: Pulmonary embolism type: single subsegmental (without acute cor pulmonale) Qualified Code(s): I26.93 - Single subsegmental pulmonary embolism without acute cor pulmonale Code(s): I26.99 - Other pulmonary embolism without acute cor pulmonale Status: Acute Plan [facility] Continue current management. Full code. Subjective Date/time seen: 03/05/23 11:19 Interval history: No acute overnight events. She denies chest pain or shortness of breath. Review of Systems Review of Systems: All systems reviewed & are unremarkable except as noted in HPI and below (Subjective) Exam Const: General: comfortable and no acute distress Eyes: Pupils: Equal, round and reactive pupils present Neck: Neck: supple Resp: Effort & Inspection: normal respiratory effort Auscultation: clear to auscultation bilaterally Cardio: Rate: regular rate Rhythm: regular rhythm Objective Data Vital Signs Vital Signs: Vital Signs - 24 hr 03/04/23 11:20 03/04/23 12:00 03/04/23 14:59 Temperature 97.4 F L 98.4 F Pulse Rate 112 H 87 81 Respiratory Rate 20 16 Blood Pressure 137/56 L 160/53 H Pulse Oximetry 93 90 03/04/23 20:28 03/05/23 05:32 03/05/23 08:35 Temperature 97.9 F 98.5 F Pulse Rate 86 88 85 Respiratory Rate 16 16 Blood Pressure 124/38 L 120/50 L 115/46 L Pulse Oximetry 91 90 98 Intake/Output Intake/Output: Intake & Output 03/02/23 03/03/23 03/04/23 03/05/23 23:59 23:59 23:59 23:59 Intake Total 830 1120 1380 240 Output Total 3 1 701 Balance 827 1119 679 240 Meds/Results Medications: Active Medications Generic Name Dose Route Start Last Admin Trade Name Freq PRN Reason Stop Dose Admin Acetaminophen 650 mg 03/01/23 14:18 Acetaminophen 325 Mg Tablet PO Q4H PRN Mild Pain (1-3) or Fever Hydrocodone Bitart/Acetaminophen 1 tab 03/01/23 14:18 03/04/23 21:37 Hydrocodone/Acetaminophen (*Crx) 5-325 Mg Tablet PO 1 tab Q4H PRN Administration Pain Rated 4-6 Apixaban 10 mg 03/02/23 09:00 03/05/23 08:36 Apixaban 5 Mg Tablet PO 10 mg Q12HR JUAQUIN Administration Atorvastatin Calcium 40 mg 03/02/23 21:00 03/04/23 20:44 Atorvastatin 40 Mg Tablet PO 40 mg HS JUAQUIN Administration Bisacodyl 5 mg 03/02/23 09:00 Bisacodyl 5 Mg Tablet Ec PO DAILY PRN CONSTIPATION Carbidopa/Levodopa 3 tablet 03/02/23 09:00 03/05/23 08:36 Carbidopa/Levodopa 25/100 Mg Tablet PO 3 tablet TID JUAQUIN Administration Clonazepam 1 mg 03/02/23 21:00 03/04/23 20:44 Clonazepam (*Crx) 0.5 Mg Tablet PO 1 mg QHS JUAQUIN Administration Dextrose 12.5 gm 03/02/23 00:03 Dextrose 50% 25 Gm/50 Ml Syringe IV PUSH PRN PRN Hypoglycemia Protocol Diltiazem HCl 60 mg 03/02/23 09:00 03/05/23 08:36 Diltiazem Hcl 60 Mg Tablet PO 60 mg TID JUAQUIN Administration Dorzolamide/Timolol 1 drop 03/02/23 09:00 03/05/23 08:39 Dorzolamide/Timolol Ophth Dana 10 Ml Bottle EACH EYE 1 drop Q12HR JUAQUIN Administration Furosemide 20 mg 03/02/23 09:00 03/05/23 08:36 Furosemide 20 Mg Tablet PO 20 mg QID JUAQUIN Administration Gabapentin 300 mg 03/02/23 09:00 03/05/23 08:36 Gabapentin 300 Mg Capsule PO 300 mg BID JUAQUIN Administration Glucagon 1 mg 03/02/23 00:03 Glucagon For Inj 1 Mg Vial IM PRN PRN Hypoglycemia Protocol Glucose 15 gm 03/02/23 00:03 Glucose Oral Gel 15 Gm Of Glucse In 37.5 Gm Tube PO PRN PRN Hypoglycemia Protocol Cefepime HCl 2 gm in 50 mls @ 100 mls/hr 03/02/23 00:15
[2023-03-05 11:59] LABS: Glucose Point of Care 286 mg/dl (65-105)
[2023-03-05] MEDS: HYDROcodone/acetaminophen (*CRX) 5-325 MG TABLET 1 TAB PO (12:01)
[2023-03-05] MEDS: INSULIN ASPART (*BKC) 100 UNITS/ML SUB-Q ×2 (12:11→21:15)
[2023-03-05 13:20] VITALS: BP 135/59; PULSE 85; RESP 17; TEMP 36.3; O2SAT 100
[2023-03-05 13:25] LABS: Glucose Point of Care 214 mg/dl (65-105)
[2023-03-05 17:13] LABS: Glucose Point of Care 162 mg/dl (65-105)
[2023-03-05 21:10] LABS: Glucose Point of Care 243 mg/dl (65-105)
[2023-03-05] MEDS: clonazePAM (*CRX) 0.5 MG TABLET 1 MG PO (21:12)
[2023-03-05] MEDS: MIRTAZAPINE 15 MG TABLET 30 MG PO (21:12)
[2023-03-05] MEDS: ATORVASTATIN 40 MG TABLET PO (21:12)
[2023-03-05] MEDS: INSULIN GLARGINE (*BKC) 100 UNITS/ML 27 UNITS SUB-Q (21:13)
[2023-03-05] MEDS: LATANOPROST 0.005% OP SOLN 2.5 ML BTL 1 DROP EACH EYE (21:13)
[2023-03-05 21:15] VITALS: BP 123/42; PULSE 89; RESP 18; TEMP 36.4; O2SAT 93
[2023-03-05] MEDS: QUEtiapine FUMARATE 25 MG TABLET 150 MG PO (21:24)
[2023-03-06 05:45] VITALS: BP 135/48; PULSE 89; RESP 20; TEMP 36.6; O2SAT 93
[2023-03-06 08:48] LABS: Glucose Point of Care 131 mg/dl (65-105)
[2023-03-06] MEDS: INSULIN ASPART (*BKC) 100 UNITS/ML 8 UNITS SUB-Q ×3 (09:46→18:35)
[2023-03-06] MEDS: GABAPENTIN 300 MG CAPSULE PO ×2 (09:48→18:34)
[2023-03-06] MEDS: lisinopriL 5 MG TABLET PO (09:48)
[2023-03-06] MEDS: PANTOPRAZOLE 40 MG TABLET PO (09:49)
[2023-03-06] MEDS: APIXABAN 5 MG TABLET 10 MG PO ×2 (09:49→21:07)
[2023-03-06] MEDS: dilTIAZem HCL 60 MG TABLET PO ×3 (09:49→18:34)
[2023-03-06] MEDS: POTASSIUM CHLORIDE 10 MEQ ER TABLET PO ×4 (09:49→21:08)
[2023-03-06] MEDS: CARBIDOPA/LEVODOPA 25/100 MG TABLET 3 TABLET PO ×3 (09:49→18:34)
[2023-03-06] MEDS: FUROSEMIDE 20 MG TABLET PO ×4 (09:49→21:08)
[2023-03-06] MEDS: DORZOLAMIDE/TIMOLOL OPHTH SOL 10 ML BOTTLE 1 DROP EACH EYE ×2 (09:54→21:09)
[2023-03-06] MEDS: CEFEPIME 2 GM/NS 50 ML 2 GM/50 ML BAG IVPB ×2 (10:02→21:07)
[2023-03-06 12:03] LABS: Glucose Point of Care 259 mg/dl (65-105)
[2023-03-06] MEDS: INSULIN ASPART (*BKC) 100 UNITS/ML SUB-Q ×3 (13:23→22:07)
[2023-03-06 14:21] VITALS: PULSE 81; RESP 18; TEMP 36.4; O2SAT 93
[2023-03-06 14:26] VITALS: BP 131/38
[2023-03-06 17:36] LABS: Glucose Point of Care 206 mg/dl (65-105)
[2023-03-06] MEDS: HYDROcodone/acetaminophen (*CRX) 5-325 MG TABLET 1 TAB PO (18:40)
[2023-03-06] MEDS: QUEtiapine FUMARATE 25 MG TABLET 150 MG PO (21:07)
[2023-03-06] MEDS: MIRTAZAPINE 15 MG TABLET 30 MG PO (21:08)
[2023-03-06] MEDS: clonazePAM (*CRX) 0.5 MG TABLET 1 MG PO (21:08)
[2023-03-06] MEDS: ATORVASTATIN 40 MG TABLET PO (21:08)
[2023-03-06] MEDS: LATANOPROST 0.005% OP SOLN 2.5 ML BTL 1 DROP EACH EYE (21:09)
[2023-03-06 21:35] LABS: Glucose Point of Care 218 mg/dl (65-105)
[2023-03-06 22:00] VITALS: BP 140/42; PULSE 80; RESP 20; TEMP 36.6; O2SAT 98
[2023-03-06] MEDS: INSULIN GLARGINE (*BKC) 100 UNITS/ML 27 UNITS SUB-Q (22:07)
[2023-03-07 06:00] VITALS: BP 138/42; PULSE 74; RESP 16; TEMP 36.3; O2SAT 94
[2023-03-07 08:18] LABS: Glucose Point of Care 142 mg/dl (65-105)
[2023-03-07] MEDS: PANTOPRAZOLE 40 MG TABLET PO (08:27)
[2023-03-07] MEDS: APIXABAN 5 MG TABLET 10 MG PO (08:27)
[2023-03-07] MEDS: GABAPENTIN 300 MG CAPSULE PO (08:27)
[2023-03-07] MEDS: dilTIAZem HCL 60 MG TABLET PO ×2 (08:27→12:34)
[2023-03-07] MEDS: lisinopriL 5 MG TABLET PO (08:28)
[2023-03-07] MEDS: POTASSIUM CHLORIDE 10 MEQ ER TABLET PO ×2 (08:28→12:34)
[2023-03-07] MEDS: DORZOLAMIDE/TIMOLOL OPHTH SOL 10 ML BOTTLE 1 DROP EACH EYE (08:28)
[2023-03-07] MEDS: FUROSEMIDE 20 MG TABLET PO ×2 (08:28→12:34)
[2023-03-07] MEDS: CEFEPIME 2 GM/NS 50 ML 2 GM/50 ML BAG IVPB (09:16)
[2023-03-07] MEDS: INSULIN ASPART (*BKC) 100 UNITS/ML 8 UNITS SUB-Q ×2 (09:17→12:34)
[2023-03-07] MEDS: CARBIDOPA/LEVODOPA 25/100 MG TABLET 3 TABLET PO ×2 (09:19→12:33)
--- NOTE | 2023-03-07 11:49 | PM.DS ---
DS: Admitting Diagnosis Discharge Date 03/07/2023 Admitting Diagnosis 03/01/2023 DS: Discharge Diagnosis Discharge Diagnosis (1) Pneumonia: Qualifiers: Laterality: bilateral Lung location: unspecified part of lung Pneumonia type: due to unspecified organism Qualified Code(s): J18.9 - Pneumonia, unspecified organism Code(s): J18.9 - Pneumonia, unspecified organism Status: Acute (2) Pulmonary embolism: Qualifiers: Pulmonary embolism type: single subsegmental (without acute cor pulmonale) Qualified Code(s): I26.93 - Single subsegmental pulmonary embolism without acute cor pulmonale Code(s): I26.99 - Other pulmonary embolism without acute cor pulmonale Status: Acute (3) Open wound of leg: Qualifiers: Encounter type: subsequent encounter Laterality: left Qualified Code(s): S81.802D - Unspecified open wound, left lower leg, subsequent encounter Code(s): S81.809A - Unspecified open wound, unspecified lower leg, initial encounter Status: Acute (4) Wound cellulitis: Code(s): L03.90 - Cellulitis, unspecified Status: Acute Plan We are still awaiting discharge to [facility]. DS: Summary Hospital Course Hospital Course: 77F w/ PMH COPD, IDDM, HTN, HLD, RLS, chronic respiratory failure on 1L NC QHS, Parkinson's, chronic wound left leg receiving wound vac, anisocoria post cataract surgery left eye, presents with left leg pain and shortness of breath. She usually lives by herself at home but has been temporarily at [facility] for wound care. Admitted on 03/01/23 for acute hypoxic respiratory failure. Ms. Rivas was found to be in acute on chronic hypoxic respiratory failure likely due to PE. Her o2 eventually weaned off during the day and she was started on apixaban without issue. She is to follow up with PCP on this matter, discontinuation of anticoagulation is a consideration as this was likely spurred by her immobility 2/2 left leg wound. She was also treated for possible HCAP although appeared largely nontoxic and without concerning symptomatology so she is dc'ed on another 3 days of Augmentin for a total 7 day course. She will also be dc'ed on Loperamide as she developed diarrhea likely 2/2 to abx use, her C diff PCR was negative. The patient is stable for discharge on 03/04 back to [facility] for wound care and should resume wound care and wound vac as instructed by Dr. Luque. She is being scheduled for debridement and stsg soon. The patient was in understanding and in agreement with this plan. She was full code during admission. More than 30 minutes spent on discharge planning and documentation. Time Spent with Patient Time attestation: Total time spent providing and/or coordinating discharge services:38 minutes Exam Const: General: cooperative, comfortable and no acute distress Other: mild somnolence. HENMT: Face/Nose/Sinus: Normal nares present Mouth: Yes moist mucous membranes Other: Const:?? General: cooperati ve and no acute di stress Resp:?? Effort & Inspectio n: normal respirat ory effort? Auscul tation: clear to a uscultation bilate rally Cardio:?? Rate: regular rate ? Rhythm: regular rhythm? Heart soun ds: S1 normal hear t sound present an d S2 normal heart sound present GI:?? GI Palp: No abdomi nal tenderness? Au scultation: normal bowel sounds Eyes: General: appearance normal, both eyes and all related structures Sclera: sclerae normal Pupils: Equal, round and reactive pupils present Neck: Neck: supple Resp: Effort & Inspection: normal re
[2023-03-07 12:01] LABS: Glucose Point of Care 290 mg/dl (65-105)
[2023-03-07] MEDS: INSULIN ASPART (*BKC) 100 UNITS/ML SUB-Q (12:34)
[2023-03-07 13:28] LABS: SARS-CoV-2 RNA PCR Negative (Negative)
== END 2023-03-07 14:25 | DRG 175 ==
LOC: ANHED 09:02 → ANHIMU 18:10 → ANH3MED 03-04 13:19
PROVIDERS: Family Medicine; General Practice; Student in an Organized Health Care Education/Training Program; Admitting Provider Hospitalist; Emergency Provider Emergency Medicine; Visit Provider Family Medicine
DX: I26.99 Other pulmonary embolism without acute cor pulmonale (principal); J18.9 Pneumonia, unspecified organism; J96.21 Acute and chronic respiratory failure with hypoxia; J44.0 Chronic obstructive pulmonary disease with (acute) lower respiratory infection; K52.1 Toxic gastroenteritis and colitis; T36.95XA Adverse effect of unspecified systemic antibiotic, initial encounter; Z20.822 Contact with and (suspected) exposure to COVID-19; E11.9 Type 2 diabetes mellitus without complications; S81.802A Unspecified open wound, left lower leg, initial encounter; I10 Essential (primary) hypertension; E78.5 Hyperlipidemia, unspecified; E87.6 Hypokalemia; G25.81 Restless legs syndrome; G20.A1 Parkinson's disease without dyskinesia, without mention of fluctuations; R19.7 Diarrhea, unspecified; Z90.49 Acquired absence of other specified parts of digestive tract; Z90.710 Acquired absence of both cervix and uterus; Z99.81 Dependence on supplemental oxygen
CPT/HCPCS: 36415; 71045; 71275; 80048; 80053; 82948; 83036; 83880; 84145; 85025; 85610; 85730; 86140; 87493; 87635; 87637; 87641; 96365; 96375; 97110; 97161; 97165; 97530; 97535; 99285; A9270; G0378; J0692; J1644; J1815; J3370; Q9967

== ENCOUNTER 2023-03-15 02:52 | Day surgery (SDC) | payer MEDICARE, MEDICAID, SELFPAY ==
[2023-03-09 11:10] VITALS: BMI 33.8
--- NOTE | 2023-03-09 15:21 | PC.NURSE ---
Addendum entered by Kateryna Sanches RN 03/09/23 15:30: NO FOOD OR DRINK 8 HOURS PRE-OP, STOP DRINK/FOOD AT 6:00AM ON 03/15/23. DAUGHTER AND NURSE FROM LONG-TERM FACILITY RELAY UNDERSTANDING. Original Note: Report to the Outpatient Waiting Room, entrance under the green pavilion located off [facility], at time __12:00PM on date __03/15/23 . Planned Procedure Time: __2:00PM . Time changes happen often and if your time is changed the preop area will call you the afternoon before. - You and your visitor will be asked to self-screen and do not enter if you have any COVID symptoms. - A mask is optional within the hospital at this time. Patients may have clear liquids (water, carbonated beverages, clear teas, apple juice) until 3 hours prior to surgery with a maximum of 20 ounces. - No food from midnight until time of surgery. Take the following medications with a SIP of water the morning of surgery: __AMOXICILLIN, CARBIDOPA-LEVODOPA, DILTIAZEM, EYE DROPS, GABAPENTIN. TAKE NEEDED-ALBUTEROL INHALER, HYDROCODONE, ZOFRAN. GIVE 1/2 DOSE OF AM INSULIN-LISPRO 4 UNITS. DO NOT STOP ANY OF YOUR OTHER PRESCRIPTION MEDICATIONS PRIOR TO SURGERY ?EXCEPT THE FOLLOWING Medications to discontinue per physician ____HOLD ELIQUIS 5 DAYS PRE-OP PER DR JOHNSON- LAST DOSE 03/09/23 Please no make-up, nail cape verdean, hairspray, perfume, deodorant, or body powder the day of surgery. No jewelry (including any body piercings) or valuables the day of surgery, leave them at home. Please take a shower or bath the night before, or the morning of, surgery with an antibacterial soap. Wear comfortable, loose fitting clothing. Children are encouraged to wear pajamas. - Jewelry must be removed prior to entering the operating room. Rings and piercings that are not removed may be cut off. - The hospital will not accept responsibility for valuables. - Please leave all valuables, including medications, at home the day of surgery. If you are going home after surgery, a licensed heavy truck driver must drive you home. - NO public transportation without another adult if you receive anesthesia. - We recommend that an adult stay with you for 24 hours following discharge. - We also recommend that you do not drive, make important decision, drink alcoholic beverages, or take any drugs that were not prescribed by your health care provider for at least 24 hours after your discharge time. Follow any additional instructions given to you from your surgeon. If you or anyone in your household have experienced Covid symptoms in the past week, please notify your surgeon or the nurse liaison at the phone number below for possible testing. Telephone instructions given to _PATIENT'S DAUGHTER & LONG-TERM FACILITY_and asked if any additional questions and then verbalized understanding. Patient advised to call surgeon office or pre surgery nurse liaison [phone] if any additional questions.
[2023-03-15] VITALS (9 sets, daily range): BP systolic 100–153; BP diastolic 36–52; PULSE 69–87; RESP 12–18; TEMP 36.2–36.3; O2SAT 92–100
--- NOTE | 2023-03-15 07:55 | WPDANESEPPF ---
Anes - Initial Pre Proc Eval Procedure: Operation Date: 03/15/23 14:00 Proposed Procedures p Preparation Recipient Site and Split Thickness Skin Graft Left Lower Extremity - Catarino Luque MD Date/Time: 03/15/23 07:55 Surgeon: Catarino Luque MD Pre Op Diagnosis: wound left lower extremity Patient Data Age: 77 Gender: F Height: 1.45 m Weight: 71 kg Allergies Allergy/AdvReac Type Severity Reaction Status Date / Time No Known Allergies Allergy Verified 03/15/23 11:44 Home Medications Medication Instructions Recorded Confirmed Type atorvastatin 40 mg tablet 40 mg PO HS 03/01/23 03/15/23 History bimatoprost 0.01 % eye drops 1 drp EACH EYE HS 03/01/23 03/15/23 History (Lumigan) bisacodyl 10 mg PO DAILY PRN Constipation 03/01/23 03/15/23 History carbidopa ER 25 mg-levodopa 100 mg 25 - 100 tablet PO TID 03/01/23 03/15/23 History tablet,extended release clonazepam 1 mg tablet 1 mg PO QHS #30 tabs 03/01/23 03/15/23 Rx diltiazem HCl 60 mg tablet 60 mg PO TID 03/01/23 03/15/23 History dorzolamide 22.3 mg-timolol 6.8 1 drp EACH EYE BID 03/01/23 03/15/23 History mg/mL eye drops furosemide 20 mg tablet 20 mg PO QAM 03/01/23 03/15/23 History gabapentin 100 mg capsule 300 mg PO BID 03/01/23 03/15/23 History insulin glargine 100 unit/mL (3 27 unit subcut HS 03/01/23 03/15/23 History mL) subcutaneous pen (Lantus Solostar U-100 Insulin) insulin lispro 100 unit/mL 8 unit subcut TIDWMEAL 03/01/23 03/15/23 History subcutaneous pen (Humalog KwikPen (U-100) Insulin) lisinopril 5 mg tablet 5 mg PO QAM 03/01/23 03/15/23 History mirtazapine 15 mg tablet 30 mg PO HS 03/01/23 03/15/23 History ondansetron 4 mg disintegrating 4 mg translingual PRN 03/01/23 03/15/23 History tablet pantoprazole 40 mg tablet,delayed 40 mg PO QAM 03/01/23 03/15/23 History release potassium chloride 10 mEq 10 meq PO DAILY 03/01/23 03/15/23 History tablet,extended release quetiapine 100 mg tablet 150 mg PO HS 03/01/23 03/15/23 History loperamide 2 mg capsule 2 mg PO QID PRN loose stool #30 03/04/23 03/15/23 Rx caps hydrocodone 7.5 mg-acetaminophen 2 tablet PO Q4H PRN pain #30 tabs 03/07/23 03/15/23 Rx 325 mg tablet albuterol (refill) 90 90 mcg inhalation Q4-6H PRN 03/09/23 03/15/23 History mcg/actuation aerosol inhaler Shortness Of Breath Or Wheezing apixaban 5 mg tablet (Eliquis) 5 mg PO Q12HR 03/09/23 03/15/23 History insulin lispro 100 unit/mL See Rx Instructions .Route .COMPLEX 03/09/23 03/15/23 History subcutaneous pen (Humalog KwikPen (U-100) Insulin) cephalexin 500 mg capsule 500 mg PO Q12H #14 caps 03/15/23 Rx Patient hx anesthesia problems: none Family hx anesthesia problems: none Results Review: All pre-operative results and documents have been reviewed as part of the pre-operative evaluation. [facility] Past Medical History Medical History (Updated 03/15/23 @ 07:56 by Jorge Hudson DO) Atrial fibrillation CHF (congestive heart failure) COPD (chronic obstructive pulmonary disease) CVA (cerebral vascular accident) Diabetic neuropathy DM2 (diabetes mellitus, type 2) Essential (primary) hypertension History of home oxygen therapy HLD (hyperlipidemia) Parkinson disease RLS (restless legs syndrome) Surgical History Surgical History (Updated 03/15/23 @ 07:56 by Jorge Hudson DO) H/O carotid endarterectomy History of carpal tunnel surgery History of cholecystectomy History of hysterectomy Family History Family History Father Family history of obesity Cerebrovascular accident Mother Family history of diabetes mellitus in first degree relative Family history of obesity Sibling Family history of kidney disease Social History Social History Smoking packs per day: 1 Smoking cigarettes per day: 20.0 Years smoked: 35 Smoking pack-y
[2023-03-15] MEDS: LACTATED RINGERS 1,000 ML 30 ML IV CONT (11:30)
[2023-03-15 11:41] LABS: Glucose Point of Care 164 mg/dl (65-105)
--- NOTE | 2023-03-15 12:45 | WPDHPUPDATE1 ---
History and Physical Update Update Date/Time: 03/15/23 12:45 Patient seen and examined in pre-operative holding area. No interval change in medical history or symptoms. Patient recalls previous discussion of benefits and alternatives to procedure. Continues to desire to proceed with left medial thigh split thickness skin graft. Reviewed procedure, post-op expectations and risks including but not limited to bleeding, infection, partial/total graft loss, donor stie complications. no change or worsening of symptoms. Patient stated understanding and signed the consent form wishing to proceed.
--- NOTE | 2023-03-15 12:46 | P.OP_ITS ---
Procedure Note - Detailed Date of Procedure 03/15/23 Pre-op Diagnosis wound left lower extremity Post-op Diagnosis Same Procedure Performed split thickness skin graft left lower extremity Surgeon Catarino Luque MD [employer] ashly davis pa-c Anesthesia General Description of Procedure INFORMED CONSENT: The patient was seen and examined and marked in the pre-op area.? The patient signed the consent form. PROCEDURE IN DETAIL:The patient taken back to OR and placed on the table in supine position. Time out performed with anesthesia, surgeon and staff agreeing on patient's name site and surgery to be performed SCDs were placed on the lower extremities and inflated. General anesthesia was administered and left lower extremity was prepped and draped in sterile fashion. I proceeded with sharp tangential debridement of left medial thigh wound, exudate and questionably viable tissue with 15 blade scalpel around periphery and curette til healthy punctate bleeding was achieved. The wound dimensions measured 10x8 cm. Next, I proceeded with harvesting a split thickness skin graft from left lateral thigh using a pinky dermatome. an epi soaked sponge was placed on the donor site while I prepared the skin graft after placing through the mesher. The graft was trimmed appropriately and sewn into left medial thigh wound bed with 4-0 chromic. The graft was covered with adaptec and wound vac placed to 125mmHg suction. The donor site was dressed with mastisol and tegaderm and then abds to cover vac and donor site followed by kerlix and tegaderm. The patient was awaken from anesthesia and transferred to recovery in stable condition. Complications - none EBL- 20cc Disposition - home in stable conditions Ashly Davis PA-C was essential for positining, instrumentation, closure and dressing/vac placement [facility] [place] Surgery - Charge Forward: Surgery Billing ([id number] and [id number] modifier for ashly)
[2023-03-15] MEDS: ceFAZolin 2 GM/D5W 50 ML 2 GM/50 ML BAG IVPB (12:58)
[2023-03-15] MEDS: BUPivacaine HCL 0.5% PF 30 ML VIAL INFILTRATE (13:23)
[2023-03-15] MEDS: LIDO 1%/EPINEPHRINE 1:100,000 20 ML VIAL 30 ML INFILTRATE (13:23)
[2023-03-15] MEDS: SODIUM CHLORIDE 0.9% IV 250 ML BAG 100 ML IRRIGATION (13:25)
[2023-03-15] MEDS: MINERAL OIL LIGHT 30 ML BTL TOPICAL (13:26)
[2023-03-15] MEDS: EPINEPHrine HCL INJ 1 MG/ML AMPUL IRRIGATION (13:26)
[2023-03-15] MEDS: MINERAL OIL LIGHT 30 ML BTL 60 ML TOPICAL (13:34)
[2023-03-15 14:20] LABS: Glucose Point of Care 144 mg/dl (65-105)
--- NOTE | 2023-03-15 14:24 | SUR.PHASEI ---
Patient coughed in recovery shortly after arrival. RN used oral suction to suction out sputum. RN noted a tooth in mouth. No respiratory distress noted or trauma to mouth noted. Patient did not arrive to PACU with an oral airway so RN didn't create any trauma to mouth. Upon second look patient is said to have swallowed own tooth. Dr. Hudson aware and came to bedside to assess situation.
[2023-03-15] MEDS: fentaNYL CITRATE INJ (*CRX) 100 MCG/2 ML VIAL 25 MCG IV PUSH ×4 (14:37→15:02)
--- NOTE | 2023-03-15 14:40 | SUR.PHASEI ---
1430: Patient handed tooth that RN thought she had swallowed to RN. Patient told RN to discard the tooth.
[2023-03-15] MEDS: ACETAMINOPHEN 500 MG TABLET 1000 MG PO (15:39)
--- NOTE | 2023-03-15 16:34 | SUR.PHASEII ---
report called to facility
== END 2023-03-15 16:09 | disposition home or self-care (01) ==
PROVIDERS: PCP Internal Medicine Gastroenterology; Visit Provider Plastic Surgery
PROC: (CPT 15100; principal; 2023-03-15 14:00)
DX: S81.802A Unspecified open wound, left lower leg, initial encounter (principal); E11.9 Type 2 diabetes mellitus without complications; I10 Essential (primary) hypertension
CPT/HCPCS: 15100; 15002; 82948; A9270; J0171; J0330; J0690; J1100; J2405; J2704; J3010; J7050; J7120

== ENCOUNTER 2024-07-28 19:45 | Emergency (ER) | payer MEDICARE, SELFPAY ==
--- NOTE | ~2024-07-28 | XR_ITS ---
EXAMINATION: XR chest 1V Exam Date/Time: 07/28/2024 20:18 CDT HISTORY: weakness Comparison: 03/01/2023. RESULT: Lines, tubes, and devices: Left chest pacer with intact leads. Cholecystectomy clips. Lungs and pleura: Mild diffuse reticular opacities, with indistinct vascular margins. Cardiomediastinal silhouette: Stable. Other: No acute osseous or upper abdominal finding. IMPRESSION: Mild interstitial edema. Reviewed, dictated and finalized at location K. IMPRESSION: Mild interstitial edema.
--- NOTE | ~2024-07-28 | CT_ITS ---
Clinical Indication: Weakness, shortness of breath CT Scan of the Chest with Contrast: Technique: Contiguous sections were acquired throughout the chest after intravenous administration of 100 cc of Omnipaque 350. Dose reduction technique was used on this scan by utilizing automated expos ure control and iterative reconstruction technique. The dose-length product (DLP) was 690.70 mGy-cm. COMPARISON: 03/01/2023 Findings: There is no evidence of any significant mediastinal, hilar or axillary lymphadenopathy. There is no f illing defect in the pulmonary arterial tree to suggest pulmonary embolus. There is no evidence of ao rtic dissection or aneurysm. There is no evidence of pleural or pericardial effusion. There is diffuse interstitial thickening with mild patchy groundglass opacity. There are numerous per ipheral subcentimeter pulmonary nodules measuring up to 3-4 mm in maximum diameter. Images through the upper abdomen reveal no abnormalities. Impression: No evidence of pulmonary embolus, aortic dissection, or aortic aneurysm. Diffuse interstitial thickening and mild ground glass opacity. Correlate for mild pulmonary edema, at ypical infection, or chronic interstitial disease. Numerous peripheral subcentimeter nodules measuring up to 3-4 mm in maximum diameter. There are proba tonie largely similar to prior exam, most likely benign. Reviewed, dictated and finalized at location . Impression: No evidence of pulmonary embolus, aortic dissection, or aortic aneurysm. Diffuse interstitial thickening and mild ground glass opacity. Correlate for mi ld pulmonary edema, atypical infection, or chronic interstitial disease. Numerous peripheral subcentimeter nodules measuring up to 3-4 mm in maximum jolly meter. There are probably largely similar to prior exam, most likely benign.
--- NOTE | ~2024-07-28 | CT_ITS ---
CT head without contrast Indication: Found down Technique: Serial scans were obtained through the brain without the administration of contrast. Dose reduction technique was used on this scan by utilizing automated exposure control and iterative recon struction technique. The dose-length product (DLP) was 681.00 mGy-cm. Findings: There is no evidence of intracranial hemorrhage, mass lesion, or acute infarct. The ventri cles and subarachnoid spaces are dilated, consistent with mild atrophy. Low attenuation regions are seen within the periventricular white matter bilaterally, likely representing changes from chronic mi crovascular ischemic disease. There is no evidence of edema, mass effect or midline shift. The visu alized paranasal sinuses and mastoid air cells are clear. Impression: No intracranial hemorrhage, mass, or acute infarct. Atrophy and chronic white matter changes, as above. Reviewed, dictated and finalized at location . Impression: No intracranial hemorrhage, mass, or acute infarct. Atrophy and chronic white matter changes, as above.
--- OUTSIDE RECORDS SUMMARY | 2024-07-28 19:48 | XMS_ITS | Encounter Summary ---
Author Organization [facility] Address [address] [place] [address] Phone Care Team Providers Care Blockmason Name Role Phone Kashif Quispe MD Primary Care Provider [phone] Kashif Quispe MD Primary Care Provider [phone] Reason for Visit * Reason Comments Medication Refill Encounter Details Date Type Department Care Team (Late st Contact Info) Description 06/22/2022 Refill [facility] - Family Medicine [facility] [address] [place] [address] Kashif Quispe MD [address] [address] Medication Refill Social History Tobacco Use Types Packs/Day Years Used Date Smoking Tobacco: Former Cigarettes 1 39 0 04/06/1960 - 04/06/1999 Smokeless Tobacco: Never Comments:QUIT 1999 Alcohol Use Standard Drinks/Week Comments No 0 (1 standard drink = 0.6 oz pur e alcohol) PHQ-2 Answer Date Recorded PHQ-2 Score 0 10/31/2018 Education Answer Date Recorded What is the highest level of school you have completed or the highest degree you have received? Associate degree: occupational, technical, or vocational program 10/07/2019 Comments No Sex and Gender Information Value Date Recorded Sex Assigned at Not on file Legal Sex Female 8:28 AM CDT Gender Identity Not on file Sexual Orientation Not on file COVID-19 Exposure Response Date Recorded In the last 10 days, have yo u been in contact with someone who was confirmed or suspected to have Coronavirus/COVID-19? No / Unsure 06/20/2022 1:35 PM CDT documented as of this encounter Miscellaneous Notes * Telephone Encounter - Sasha Gutierrez RN - 06/22/2022 3:36 PM CDT PDMP 05/19/22 Medication failed the protocol, provider to review and approve the medication order if appropriate. Requested Prescriptions Pending Prescriptions Disp Refills clonazePAM (KlonoPIN) 1 MG Tablet [Pharmacy Med Name: CLONAZEPAM 1MG TABLETS] 30 Tablet 0 Sig: TAKE 1 TABLET BY MOUTH EVERY NIGHT Not Delegated - Clonazepam Protocol Failed - 06/22/2022 1:24 PM Failed - This refill cannot be delegated Passed - Visit with relevant provider in past 12 months or upcoming 90 days Recent Visits Date Type Provider Dept 06/20/22 Office Visit Alba Abdalla, CUSTOMER RETENTION REPRESENTATIVE, HORTICULTURE SUPERINTENDENT [facility] 02/16/22 Office Visit Ba Kim CUSTOMER RETENTION REPRESENTATIVE, HORTICULTURE SUPERINTENDENT [facility] Office Visit Kashif Quispe MD [facility] Showing recent visits within past 365 days and meeting all other requirements Future Appointments No visits were found meeting these conditions. 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
--- OUTSIDE RECORDS SUMMARY | 2024-07-28 19:48 | XMS_ITS | Encounter Summary ---
Author Organization [facility] Address [address] [place] [address] Phone Care Team Providers Care Hotel Security Officer Name Role Phone Kashif Quispe MD Primary Care Provider [phone] Kashif Quispe MD Primary Care Provider [phone] Reason for Visit * Reason Comments Medication Refill Encounter Details Date Type Department Care Team (Late st Contact Info) Description 02/20/2022 Refill [facility] - [facility] [address] [place] [address] Kashif Quispe MD [address] [address] Medication Refill Social History Tobacco Use Types [...] suspected to have Coronavirus/COVID-19? 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 Requested Prescriptions Pending Prescriptions Disp Refills potassium chloride CR (KLORCON) 10 MEQ Tablet Controlled Release [Pharmacy Med Name: POTASSIUM CL 10MEQ ER TABLETS] 90 Tablet 3 Sig: TAKE 1 TABLET BY MOUTH DAILY Potassium Supplement Protocol Failed - 02/20/2022 5:50 AM Failed - Normal serum potassium in past 12 months No results found for: POTASSIUM, POCTK Passed - Visit with relevant provider in past 12 months or upcoming 90 days Recent Visits Date Type Provider Dept 02/16/22 Office Visit Ba Kim APRN, MANAGER COLLECTION [facility]21 [facility]21 [facility] 03/24/21 Office Visit Kashif Quispe MD [facility] Showing recent visits within past 365 days and meeting all other requirements Future Appointments No visits were found meeting these conditions. Showing future appointments within next 90 days and meeting all other requirements METRIST ASSISTANT documented in this encounter Plan of Treatment Not on file documented as of this encounter Visit Diagnoses Not on filedocumented in this encounter Additional Health Concerns Assessment Noted Time PHQ-9 Depression Total Score: 0 04/20/19 19 1:00 PM OPTOMETRIST ASSISTANT documented as of this encounter Care Teams Hotel Security Officer Relationship Specialty Start Date End Date Kashif Quispe MD [address] [address] PCP - General Family Medicine 01/19/15 02/12/23 Kashif Quispe MD [address] [place] [address] PCP - General Family Medicine 09/27/23 documented as of this encounter
--- OUTSIDE RECORDS SUMMARY | 2024-07-28 19:48 | XMS_ITS | Encounter Summary ---
Author Organization [facility] Address [address] [place] [address] Phone Care Team Providers Care Campus Interviews Intern Name Role Phone Kashif Quispe MD Primary Care Provider [phone] [phone] Kashif Quispe MD Primary Care Provider +1 [phone] Reason for Visit * Reason Comments Medication Refill Encounter Details Date Type Department Care Team (Late st Contact Info) Description 03/16/2022 Refill [facility] #2 [place] [address] Kashif Quispe MD #[address] [address] Medication Refill Social History Tobacco Use Types [...] Coronavirus/COVID-19? No / Unsure 02/16/2022 2:36 PM NUMERICAL CONTROL OPERATOR documented as of this encounter Miscellaneous Notes * Telephone Encounter - Sasha Gutierrez RN - 03/17/2022 10:12 AM CST PDMP 02/14/22 Medication failed the protocol, provider to review and approve the medication order if appropriate. Requested Prescriptions Pending Prescriptions Disp Refills clonazePAM (KlonoPIN) 1 MG Tablet [Pharmacy Med Name: CLONAZEPAM 1MG TABLETS] 30 Tablet 0 Sig: TAKE 1 TABLET BY MOUTH EVERY NIGHT Not Delegated - Clonazepam Protocol Failed - 03/16/2022 4:08 PM Failed - This refill cannot be delegated Passed - Visit with relevant provider in past 12 months or upcoming 90 days Recent Visits Date Type Provider Dept 02/16/22 Office Visit Ba Kim APRN, SEWING MACHINE REPAIRER HELPER [facility] 09/27/21 Office Visit Kashif Quispe MD [facility] 06/24/21 Office Visit Kashif Quispe MD [facility] 03/24/21 Office Visit Kashif Quispe MD [facility] Showing recent visits within past 365 days and meeting all other requirements Future Appointments No visits were found meeting these conditions. Showing future appointments within next 90 days and meeting all other requirements RICAL CONTROL OPERATOR documented in this encounter Plan of Treatment Not on file documented as of this encounter Visit Diagnoses Diagnosis Chronic pain syndrome Chronic prescription benzodiazepine use documented in this encounter Additional Health Concerns Assessment Noted Time PHQ-9 Depression Total Score: 0 04/20/19 19 1:00 PM NUMERICAL CONTROL OPERATOR documented as of this encounter Care Teams Campus Interviews Intern Relationship Specialty Start Date End Date Kashif Quispe MD #[address] [address] PCP - General Family Medicine 01/19/15 02/12/23 Kashif Quispe MD #2 [place] [address] PCP - General Family Medicine 09/27/23 documented as of this encounter
--- OUTSIDE RECORDS SUMMARY | 2024-07-28 19:48 | XMS_ITS | Encounter Summary ---
Author Organization [facility] Address [address] [place] [address] Phone Care Team Providers Care Medical Collections Name Role Phone Kashif Quispe MD Primary Care Provider [phone] [phone] Kashif Quispe MD Primary Care Provider +1 [phone] Reason for Visit * Reason Comments Medication Refill Encounter Details Date Type Department Care Team (Late st Contact Info) Description 07/18/2022 Refill [facility] #2 [place] [address] Kashif Quispe MD #[address] [address] Medication Refill Social History Tobacco Use Types [...] Telephone Encounter - Sasha Gutierrez RN - 07/18/2022 12:21 PM CDT PDMP 06/22/22 Medication failed the protocol, provider to review and approve the medication order if appropriate. Requested Prescriptions Pending Prescriptions Disp Refills clonazePAM (KlonoPIN) 1 MG Tablet [Pharmacy Med Name: CLONAZEPAM 1MG TABLETS] 30 Tablet 0 Sig: TAKE 1 TABLET BY MOUTH EVERY NIGHT Not Delegated - Clonazepam Protocol Failed - 07/18/2022 12:45 AM Failed - This refill cannot be delegated Passed - Visit with relevant provider in past 12 months or upcoming 90 days Recent Visits Date Type Provider Dept 06/20/22 Office Visit Alba Abdalla, IMPORT CLERK, CART ATTENDANT [facility] 02/16/22 Office Visit Ba Kim APRN, CART ATTENDANT [facility] 09/27/21 Office Visit Kashif Quispe MD [facility] Showing recent visits within past 365 days [...] Total Score: 0 04/20/19 19 1:00 PM IRONING PLEATER documented as of this encounter Care Teams Medical Collections Relationship Specialty Start Date End Date Kashif Quispe MD #[address] [address] PCP - General Family Medicine 01/19/15 02/12/23 Kashif Quispe MD #2 [place] [id number] PCP - General Family Medicine 09/27/23 documented as of this encounter
--- OUTSIDE RECORDS SUMMARY | 2024-07-28 19:48 | XMS_ITS | Encounter Summary ---
Author Organization [facility] Address [address] [place] [address] Phone Care Team Providers Care Preschool Teacher Assistant Name Role Phone Kashif Quispe MD Primary Care Provider [phone] [phone] Kashif Quispe MD Primary Care Provider [phone] [phone] Reason for Visit * Reason Comments Medication Refill Encounter Details Date Type Department Care Team (Late st Contact Info) Description 04/13/2022 Refill [facility] #2 [place] [address] Kashif Quispe MD #[address] [address] Medication Refill Social History Tobacco Use Types [...] on file Sexual Orientation Not on file documented as of this encounter Miscellaneous Notes * Telephone Encounter - Rose Glynn RN - 04/13/2022 1:12 PM MANAGER STARS PDMP 03/19/22 #30 Medication failed the protocol, provider to review and approve the medication order if appropriate. Requested Prescriptions Pending Prescriptions Disp Refills clonazePAM (KlonoPIN) 1 MG Tablet [Pharmacy Med Name: CLONAZEPAM 1MG TABLETS] 30 Tablet 0 Sig: TAKE 1 TABLET BY MOUTH EVERY NIGHT Not Delegated - Clonazepam Protocol Failed - 04/13/2022 1:08 PM Failed - This refill cannot be delegated Passed - Visit with relevant provider in past 12 months or upcoming 90 days Recent Visits Date Type Provider Dept 02/16/22 Office Visit Ba Kim APRN, CASHIER GAMBLING [facility] Jan 09/27/21 Office Visit Kashif Quispe MD [facility] 06/24/21 Office Visit Kashif Quispe MD [facility] Jan Showing recent visits within past 365 days and meeting all other requirements Future Appointments Date Type Provider Dept 06/20/22 Appointment Alba Abdalla APRN, CASHIER GAMBLING [facility] Jan Showing future appointments within next 90 days and meeting all other requirements GER STARS documented in this encounter Plan of Treatment Not on file documented as of this encounter Visit Diagnoses Diagnosis Chronic pain syndrome Chronic prescription benzodiazepine use documented in this encounter Additional Health Concerns Assessment Noted Time PHQ-9 Depression Total Score: 0 04/20/19 19 1:00 PM MANAGER STARS documented as of this encounter Care Teams Preschool Teacher Assistant Relationship Specialty Start Date End Date Kashif Quispe MD #[address] [address] PCP - General Family Medicine 01/19/15 02/12/23 Kashif Quispe MD #[address] [address] PCP - General Family Medicine 09/27/23 documented as of this encounter
--- OUTSIDE RECORDS SUMMARY | 2024-07-28 19:48 | XMS_ITS | Encounter Summary ---
Author Organization [facility] Address [address] [place] [address] Phone Care Team Providers Care Count Room Clerk Name Role Phone Kashif Quispe MD Primary Care Provider [phone] [phone] Kashif Quispe MD Primary Care Provider [phone] [phone] Reason for Visit * Reason Comments Medication Refill Encounter Details Date Type Department Care Team (Late st Contact Info) Description 05/16/2022 Refill [facility] #2 [place] [address] Kashif Quispe MD #[address] [address] Medication Refill Social History Tobacco Use Types [...] Telephone Encounter - Sasha Gutierrez RN - 05/16/2022 1:54 PM CDT PDMP 04/17/22 Medication failed the protocol, provider to review and approve the medication order if appropriate. Requested Prescriptions Pending Prescriptions Disp Refills clonazePAM (KlonoPIN) 1 MG Tablet [Pharmacy Med Name: CLONAZEPAM 1MG TABLETS] 30 Tablet 0 Sig: TAKE 1 TABLET BY MOUTH EVERY NIGHT Not Delegated - Clonazepam Protocol Failed - 05/16/2022 1:40 PM Failed - This refill cannot be delegated Passed - Visit with relevant provider in past 12 months or upcoming 90 days Recent Visits Date Type Provider Dept 02/16/22 Office Visit Ba Kim APRN, PATR[facility] [facility] 09/27/21 Office Visit Kashif Quispe MD [facility] 06/24/21 Office Visit Kashif Quispe MD [facility] Showing recent visits within past 365 days and meeting all other requirements Future Appointments Date Type Provider Dept 06/20/22 Appointment Alba Abdalla APRN, TOOLING ENGINEERING TECH [facility] Jan Showing future appointments within next 90 days and meeting all other requirements documented in this encounter Plan of Treatment Not on file documented as of this encounter Visit Diagnoses Diagnosis Chronic pain syndrome Chronic prescription benzodiazepine use documented in this encounter Additional Health Concerns Assessment Noted Time PHQ-9 Depression Total Score: 0 04/20/19 19 1:00 PM HIGH SCHOOL LIBRARY MEDIA SPECIALIST documented as of this encounter Care Teams Count Room Clerk Relationship Specialty Start Date End Date Kashif Quispe MD #[address] [address] PCP - General Family Medicine 01/19/15 02/12/23 Kashif Quispe MD #[address] [address] PCP - General Family Medicine 09/27/23 documented as of this encounter
--- OUTSIDE RECORDS SUMMARY | 2024-07-28 19:48 | XMS_ITS | Encounter Summary ---
Author Organization [facility] Address [address] [place] [address] Phone Care Team Providers Care Take Off Man Name Role Phone Kashif Quispe MD Primary Care Provider [phone] [phone] Kashif Quispe MD Primary Care Provider [phone] [phone] Reason for Visit * Reason Comments Medication Refill Encounter Details Date Type Department Care Team (Late st Contact Info) Description 10/05/2021 Refill [facility] #2 [place] [address] Kashif Quispe MD #[address] [address] Medication Refill Social History Tobacco Use Types [...] suspected to have Coronavirus/COVID-19? No / Unsure 09/27/2021 1:55 PM CDT documented as of this encounter Miscellaneous Notes * Telephone Encounter - Sasha Gutierrez RN - 10/06/2021 2:28 PM CDT PDMP 09/05/21 Medication failed the protocol, provider to review and approve the medication order if appropriate. Requested Prescriptions Pending Prescriptions Disp Refills clonazePAM (KlonoPIN) 1 MG Tablet [Pharmacy Med Name: CLONAZEPAM 1MG TABLETS] 30 Tablet 0 Sig: TAKE 1 TABLET BY MOUTH EVERY NIGHT Not Delegated - Clonazepam Protocol Failed - 10/05/2021 8:50 PM Failed - This refill cannot be delegated Passed - Visit with relevant provider in past 12 months or upcoming 90 days Recent Visits Date Type Provider Dept 09/27/21 Office Visit Kashif Quispe MD [facility] 06/24/21 Office Visit Kashif Quispe MD [facility] 03/24/21 Office Visit Kashif Quispe MD [facility] 10/08/20 Office Visit Kashif Quispe MD [facility] Showing recent visits within past 365 days and meeting all other requirements Future Appointments Date Type Provider Dept 12/30/21 Appointment Kashif Quispe MD [facility] Showing future appointments within next 90 days and meeting all other requirements documented in this encounter Plan of Treatment Not on file documented as of this encounter Visit Diagnoses Diagnosis Chronic pain syndrome Chronic prescription benzodiazepine use documented in this encounter Additional Health Concerns Assessment Noted Time PHQ-9 Depression Total Score: 0 04/20/19 19 1:00 PM INVESTMENTS MANAGER documented as of this encounter Care Teams Take Off Man Relationship Specialty Start Date End Date Kashif Quispe MD #[address] [address] PCP - General Family Medicine 01/19/15 02/12/23 Kashif Quispe MD #2 [facility] [address] [place] [address] PCP - General Family Medicine 09/27/23 documented as of this encounter
--- OUTSIDE RECORDS SUMMARY | 2024-07-28 19:49 | XMS_ITS | Encounter Summary ---
Author Organization [facility] Address [address] [place] [address] Phone Care Team Providers Care Branch Or Department Chief Librarian Name Role Phone Kashif Quispe MD Primary Care Provider [phone] [phone] Kashif Quispe MD Primary Care Provider [phone] [phone] Reason for Visit * Reason Comments Medication Refill Encounter Details Date Type Department Care Team (Late st Contact Info) Description 02/22/2021 Refill [facility] #2 [place] [address] Kashif Quispe MD #[address] [address] Medication Refill Social History Tobacco Use Types [...] encounter Miscellaneous Notes * Telephone Encounter - Kristin Lieberman RN - 02/22/2021 3:27 PM CST Medication failed the protocol, provider to review and approve the medication order if appropriate. Requested Prescriptions Pending Prescriptions Disp Refills potassium chloride CR (KLORCON) 10 MEQ Tablet Controlled Release [Pharmacy Med Name: POTASSIUM CL 10MEQ ER TABLETS] 90 Tablet 3 Sig: TAKE 1 TABLET BY MOUTH DAILY Potassium Supplement Protocol Failed - 02/22/2021 3:15 AM Failed - Normal serum potassium in past 12 months POTASSIUM Date Value Ref Range Status 11/25/2019 4.0 3.5 - 5.1 mmol/L Final Passed - Visit with relevant provider in past 12 months or upcoming 90 days Recent Visits Date Type Provider Dept 10/08/20 Office Visit Kashif Quispe MD [facility] 07/08/20 Office Visit Kashif Quispe MD [facility] 04/08/20 Office Visit Kashif Quispe MD [facility] Showing recent visits within past 365 days and meeting all other requirements Future Appointments No visits were found meeting these conditions. Showing future appointments within next 90 days and meeting all other requirements R COVERER APPRENTICE documented in this encounter Plan of Treatment Not on file documented as of this encounter Visit Diagnoses Not on filedocumented in this encounter Additional Health Concerns Assessment Noted Time PHQ-9 Depression Total Score: 0 04/20/19 19 1:00 PM FLOOR COVERER APPRENTICE documented as of this encounter Care Teams Branch Or Department Chief Librarian Relationship Specialty Start Date End Date Kashif Quispe MD [address] [address] PCP - General Family Medicine 01/19/15 02/12/23 Kashif Quispe MD #[address] [address] PCP - General Family Medicine 09/27/23 documented as of this encounter
--- OUTSIDE RECORDS SUMMARY | 2024-07-28 19:49 | XMS_ITS | Encounter Summary ---
Author Organization [facility] Address [address] [place] [address] Phone Care Team Providers Care Ceramic Research Engineer Name Role Phone Kashif Quispe MD Primary Care Provider [phone] [phone] Reason for Visit * Reason Comments Medication Refill Encounter Details Date Type Department Care Team (Late st Contact Info) Description 06/11/2023 Refill [facility] #2 [place] [address] Kashif Quispe MD #[address] [address] Medication Refill Social History Tobacco Use Types [...] encounter Miscellaneous Notes * Telephone Encounter - Trudy Du RN - 06/11/2023 8:02 AM CDT Images from the original note were not included. 02/13/23 3:48 PM Note No longer a patient documented in this encounter Plan of Treatment Not on file documented as of this encounter Visit Diagnoses Not on filedocumented in this encounter Additional Health Concerns Assessment Noted Time PHQ-9 Depression Total Score: 0 04/20/19 19 1:00 PM FERTILIZER PROCESSING SUPERVISOR documented as of this encounter Care Teams Ceramic Research Engineer Relationship Specialty Start Date End Date Kashif Quispe MD #[address] [address] PCP - General Family Medicine 09/27/23 documented as of this encounter
--- OUTSIDE RECORDS SUMMARY | 2024-07-28 19:49 | XMS_ITS | Encounter Summary ---
Author Organization [facility] Address [address] [place] [address] Phone Care Team Providers Care Beam Dyer Operator Name Role Phone Kashif Quispe MD Primary Care Provider [phone] [phone] Kashif Quispe MD Primary Care Provider +1 [phone] Reason for Visit * Reason Comments Medication Refill Encounter Details Date Type Department Care Team (Late st Contact Info) Description 12/12/2021 Refill [facility] #2 [place] [address] Kashif Quispe MD #[address] [address] Medication Refill Social History Tobacco Use Types [...] encounter Miscellaneous Notes * Telephone Encounter - Blanca Sandoval RN - 12/13/2021 10:32 AM CDT PDMP 11/11/21 Medication failed the protocol, provider to review and approve the medication order if appropriate. Requested Prescriptions Pending Prescriptions Disp Refills clonazePAM (KlonoPIN) 1 MG Tablet [Pharmacy Med Name: CLONAZEPAM 1MG TABLETS] 30 Tablet Sig: TAKE 1 TABLET BY MOUTH EVERY NIGHT Not Delegated - Clonazepam Protocol Failed - 12/12/2021 9:13 PM Failed - This refill cannot be [...] Total Score: 0 04/20/19 19 1:00 PM DIESEL POWERPLANT MECHANIC documented as of this encounter Care Teams Beam Dyer Operator Relationship Specialty Start Date End Date Kashif Quispe MD #[address] [address] PCP - General Family Medicine 01/19/15 02/12/23 Kashif Quispe MD #[address] [address] PCP - General Family Medicine 09/27/23 documented as of this encounter
--- OUTSIDE RECORDS SUMMARY | 2024-07-28 19:49 | XMS_ITS | Encounter Summary ---
Author Organization [facility] Address [address] [place] [address] Phone Care Team Providers Care Functional Support Analyst Name Role Phone Kashif Quispe MD Primary Care Provider [phone] [phone] Kashif Quispe MD Primary Care Provider [phone] [phone] Reason for Visit * Reason Comments Medication Refill Encounter Details Date Type Department Care Team (Late st Contact Info) Description 01/13/2022 Refill [facility] Family [facility] #2 [place] [address] Kashif Quispe MD #[address] [address] Medication Refill Social History Tobacco Use Types [...] Telephone Encounter - Sasha Gutierrez RN - 01/14/2022 8:31 AM CST PDMP 12/16/21 Medication failed the protocol, provider to review and approve the medication order if appropriate. Requested Prescriptions Pending Prescriptions Disp Refills clonazePAM (KlonoPIN) 1 MG Tablet [Pharmacy Med Name: CLONAZEPAM 1MG TABLETS] 30 Tablet 0 Sig: TAKE 1 TABLET BY MOUTH EVERY NIGHT Not Delegated - Clonazepam Protocol Failed - 01/13/2022 8:46 PM Failed - This refill cannot be delegated Passed - Visit with relevant provider in past 12 months or upcoming 90 days Recent Visits Date Type Provider Dept 09/27/21 Office Visit Kashif Quispe MD [facility] 06/24/21 Office Visit Kashif Quispe MD [facility] 03/24/21 Office Visit [facility] Showing recent visits within past 365 days and meeting all other requirements Future Appointments No visits were found meeting these conditions. Showing future appointments within next 90 days and meeting all other requirements IOTHERAPY PRACTICE MANAGER documented in this encounter Plan of Treatment Not on file documented as of this encounter Visit Diagnoses Diagnosis Chronic pain syndrome Chronic prescription benzodiazepine use documented in this encounter Additional Health Concerns Assessment Noted Time PHQ-9 Depression Total Score: 0 04/20/19 19 1:00 PM PHYSIOTHERAPY PRACTICE MANAGER documented as of this encounter Care Teams Functional Support Analyst Relationship Specialty Start Date End Date Kashif Quispe MD #[address] [address] PCP - General Family Medicine 01/19/15 02/12/23 Kashif Quispe MD #[address] [address] PCP - General Family Medicine 09/27/23 documented as of this encounter
--- OUTSIDE RECORDS SUMMARY | 2024-07-28 19:49 | XMS_ITS | Encounter Summary ---
Author Organization [facility] Address [address] [place] [address] Phone Care Team Providers Care Shop Repairer Name Role Phone Kashif Quispe MD Primary Care Provider [phone] [phone] Kashif Quispe MD Primary Care Provider +1 [phone] Reason for Visit * Reason Comments Medication Refill Encounter Details Date Type Department Care Team (Late st Contact Info) Description 09/01/2021 Refill [facility] #2 [place] [address] Kashif Quispe MD #[address] [address] Medication Refill Social History Tobacco Use Types [...] Telephone Encounter - Sasha Gutierrez RN - 09/02/2021 9:29 AM CDT PDMP 08/05/21 Medication failed the protocol, provider to review and approve the medication order if appropriate. Requested Prescriptions Pending Prescriptions Disp Refills clonazePAM (KlonoPIN) 1 MG Tablet [Pharmacy Med Name: CLONAZEPAM 1MG TABLETS] 30 Tablet 0 Sig: TAKE 1 TABLET BY MOUTH EVERY NIGHT Not Delegated - Clonazepam Protocol Failed - 09/01/2021 12:50 PM Failed - This refill cannot be delegated Passed - Visit with relevant provider in past 12 months or upcoming 90 days Recent Visits Date Type Provider Dept 06/24/21 Office Visit Kashif Quispe MD [facility] 03/24/21 Office Visit Kashif Quispe MD [facility] 10/08/20 Office Visit Kashif Quispe MD [facility] Showing recent visits within past 365 days and meeting all other requirements Future Appointments Date Type Provider Dept 09/27/21 Appointment Kashif Quispe MD [facility] Showing future appointments within next 90 days and meeting all other requirements documented in this encounter Plan of Treatment Not on file documented as of this encounter Visit Diagnoses Diagnosis Chronic pain syndrome Chronic prescription benzodiazepine use documented in this encounter Additional Health Concerns Assessment Noted Time PHQ-9 Depression Total Score: 0 04/20/19 19 1:00 PM TIE SAWYER documented as of this encounter Care Teams Shop Repairer Relationship Specialty Start Date End Date Kashif Quispe MD #[address] [address] PCP - General Family Medicine 01/19/15 02/12/23 Kashif Quispe MD #[address] [address] PCP - General Family Medicine 09/27/23 documented as of this encounter
--- OUTSIDE RECORDS SUMMARY | 2024-07-28 19:49 | XMS_ITS | Encounter Summary ---
Author Organization [facility] Address [address] [place] [address] Phone Care Team Providers Care Full Service Supervisor Name Role Phone Kashif Quispe MD Primary Care Provider +1 [phone] Kashif Quispe MD Primary Care Provider +1 [phone] Reason for Visit * Reason Comments Medication Refill Encounter Details Date Type Department Care Team (Late st Contact Info) Description 10/17/2020 Refill [facility] [address] [place] [address] Kashif Quispe MD [address] [address] Medication Refill Social History Tobacco Use Types [...] Exposure Response Date Recorded In the last month, have you been in contact with someone who was confirmed or suspected to have Coronavirus / COVID-19? No / Unsure 10/08/2020 2:51 PM CDT documented as of this encounter Miscellaneous Notes * Telephone Encounter - Sasha Gutierrez RN - 10/19/2020 9:46 AM CDT Medication failed the protocol, provider to review and approve the medication order if appropriate. Requested Prescriptions Pending Prescriptions Disp Refills Cholecalciferol (Vitamin D3) 25 MCG (1000 UT) Capsule [Pharmacy Med Name: VITAMIN D 1,000IU LIQ SFTGL CAPS] 90 Capsule 2 Sig: TAKE 1 CAPSULE BY MOUTH DAILY [facility] Off-Protocol Failed - 10/17/2020 1:25 AM Failed - Medication not assigned to a protocol, review manually. Passed - Valid encounter within last 12 months Past Office Visits Recent Outpatient Visits 1 week ago Hyperlipidemia, unspecified hyperlipidemia type [facility] - Kashif Gonsales MD 3 months ago Hyperlipidemia, unspecified hyperlipidemia type [facility] - Kashif Gonsales MD 6 months ago Essential hypertension [facility] Kashif Brewster MD 9 months ago Pneumonia, unspecified organism [facility] - Kashif Gonsales MD 10 months ago Chest heaviness [facility] - Kashif Gonsales MD Upcoming Appointments Future Appointments In 2 months Kashif Quispe MD [facility] - Recent and Past Visits Recent Visits Date Type Provider Dept 10/08/20 Office Visit Kashif Quispe MD [facility] 07/08/20 Office Visit Kashif Quispe MD [facility] 04/08/20 Office Visit Kashif Quispe MD [facility] 01/07/20 Office Visit Kashif Quispe MD [facility] 11/25/19 Office Visit Kashif Quispe MD [facility] 10/07/19 Office Visit Kashif Quispe MD [facility] 07/30/19 Office Visit Kashif Quispe MD [facility] Showing recent visits within past 460 days with a meds authorizing provider and meeting all other requirements Future Appointments Date Type Provider Dept 01/14/21 Appointment Kashif Quispe MD [facility] Showing future appointments within next 90 days with a meds authorizing provider and meeting all other requirements Vitamin Supplements (Adult) Protocol Passed - 10/17/2020 1:25 AM Passed - Visit with relevant provider in past 12 months or upcoming 90 days Recent Visits Date Type Provider Dept 10/08/20 Office Visit Kashif Quispe MD [facility] 07/08/20 Office Visit Kashif Quispe MD [facility] 04/08/20 Office Visit Kashif Quispe MD [facility] 01/07/20 Office Visit Kashif Quispe MD [facility] 11/25/19 Office Visit Kashif Quispe MD [facility] Showing recent visits within past 365 days and meeting all other requirements Future Appointments Date Type Provider Dept 01/14/21 Appointment Kashif Quispe MD [facility] Showing future appointments within next 90 days and meeting all other requirements Passed - Vitamin D less than 1.25mg documented in this encounter Plan of Treatment Not on file documented as of this encounter Visit Diagnoses Not on filedocumented in this encounter Additional Health Concerns Assessment Noted Time PHQ-9 Depression Total Score: 0 04/20/19 19 1:00 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
--- OUTSIDE RECORDS SUMMARY | 2024-07-28 19:49 | XMS_ITS | Encounter Summary ---
Author Organization [facility] Address [address] [place] [address] Phone Care Team Providers Care Applications Programmer Name Role Phone Kashif Quispe MD Primary Care Provider [phone] [phone] Kashif Quispe MD Primary Care Provider +1 [phone] Reason for Visit * Reason Comments Medication Refill Encounter Details Date Type Department Care Team (Late st Contact Info) Description 2019 Refill [facility] [address] [place] [address] Kashif Quispe MD [address] [address] Medication Refill Social History Tobacco Use Types [...] have Coronavirus / COVID-19? No / Unsure 11/25/2019 11:49 AM CDT documented as of this encounter Miscellaneous Notes * Telephone Encounter - Mirta Verdugo RN - 12/06/2019 9:16 AM CDT Requested Prescriptions Pending Prescriptions Disp Refills Cholecalciferol (Vitamin D3) 25 MCG (1000 UT) Capsule [Pharmacy Med Name: VITAMIN D3 1000UNIT CAPSULES] 90 Cap 2 Sig: TAKE 1 CAPSULE BY MOUTH DAILY Off-Protocol Failed - 2019 9:04 PM Failed - Medication not assigned to a protocol, review manually. Passed - Valid encounter within last 12 months Past Office Visits Recent Outpatient Visits 1 week ago Chest heaviness [facility] Kashif Gonsales MD 2 months ago Hyperlipidemia, unspecified hyperlipidemia type [facility] Kashif Gonsales MD 4 months ago Chronic prescription benzodiazepine use [facility] Kashif Gonsales MD 7 months ago Hyperlipidemia, unspecified hyperlipidemia type [facility] Kashif Gonsales MD 1 year ago Abdominal wall hernia [facility] Kashif Gonsales MD Upcoming Appointments Future Appointments In 1 month [facility] - Recent and Past Visits Recent Visits Date Type Provider Dept 11/25/19 Office Visit Kashif Quispe MD [facility] 10/07/19 Office Visit Kashif Quispe MD [facility] 07/30/19 Office Visit Kashif Quispe MD [facility] 04/25/19 Office Visit Kashif Quispe MD [facility] 11/08/18 Office Visit Kashif Quispe MD [facility] 10/31/18 Office Visit Ba Kim APN, SITE PHYSICIAN [facility] Jan Showing recent visits within past 460 days with a meds authorizing provider and meeting all other requirements Future Appointments Date Type Provider Dept 01/07/20 [facility]ointment [facility] Show[facility] future appointments within next 90 days with a meds authorizing provider and meeting all other requirements documented in this encounter Plan of Treatment Not on file documented as of this encounter Visit Diagnoses Not on filedocumented in this encounter Additional Health Concerns Assessment Noted Time PHQ-9 Depression Total Score: 0 04/20/19 19 1:00 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
--- OUTSIDE RECORDS SUMMARY | 2024-07-28 19:49 | XMS_ITS | Clinical Summary ---
Author Organization [facility] Care Team Providers Care Configuration Management Analyst Name Role Phone Kashif Quispe MD Primary Care Provider [phone] [phone] Allergies Active Allergy Reactions Criticality Noted Date Comments Silicone Rash Medium 08/14/2019 Allergic to adhesive in regular adhesive tape. Medications carbidopa-levodopa (SINEMET) 25-100 MG Tablet Take 2 Tabs by mouth 2 times daily. Active insulin lispro (HumaLOG) 100 UNIT/ML Solution by Subcutaneous route 2 times daily (before meals). SLIDING SCALEUse as directed Active Blood Glucose Monitoring Suppl (FIFTY50 GLUCOSE METER 2.0) w/Device Kit Use to check glucose 3x daily Dx code E11.65 Insulin dependent 03/15/19 18 Active LANTUS SOLOSTAR 100 UNIT/ML Solution Pen-injector 20 unitw in evening before bed 11 07/07/19 18 Active B-D UF III MINI PEN NEEDLES 31G X 5 MM Misc USE QID. 3 04/10/19 18 Active ONE TOUCH ULTRA TEST Strip 09/01/19 18 Active HUMALOG KWIKPEN 100 UNIT/ML Solution Pen-injector INJECT 8 UNITS SC TID. 11 10/03/19 18 Active Fenofibrate Micronized 134 MG Capsule fenofibrate micronized 134 mg capsule TK 1 C PO QD Active gabapentin (NEURONTIN) 100 MG Capsule Take 1 Cap by mouth 2 times daily. 180 Cap 3 02/21/20 20 Active SUMAtriptan (IMITREX) 50 MG Tablet Take 1 Tab by mouth once as needed for Migraine for up to 1 dose. Use as directed. May repeat dose in 2 hours if headache recurs. 9 Tab 10 02/21/20 20 Active QUEtiapine (SEROquel) 100 MG Tablet Take 1 Tab by mouth nightly. 90 Tab 1 02/21/20 20 Active mirtazapine (REMERON) 15 MG Tablet Take 2 Tablets by mouth nightly. 04/06/19 21 Active furosemide (LASIX) 20 MG Tablet Take 1 Tablet by mouth daily. 90 Tablet 3 03/19/19 23 Active Lumigan 0.01 % Solution INSTILL 1 DROP IN BOTH EYES EVERY NIGHT 04/18/19 23 Active clonazePAM (KlonoPIN) 1 MG TabletIndications: Chronic pain syndrome,Chronic prescription benzodiazepine use TAKE 1 TABLET BY MOUTH EVERY NIGHT 30 Tablet 08/28/19 23 Active atorvastatin (LIPITOR) 40 MG Tablet Take 1 Tablet by mouth daily. 90 Tablet 3 01/17/20 23 Active pantoprazole (PROTONIX) 40 MG Tablet Delayed Response Take 1 Tablet by mouth daily. 90 Tablet 1 01/17/20 23 Active potassium chloride CR (KLORCON) 10 MEQ Tablet Controlled Release TAKE 1 TABLET BY MOUTH DAILY 90 Tablet 02/14/20 23 Active lisinopril (PRINIVIL, ZESTRIL) 5 MG Tablet Take 1 Tablet by mouth daily. 90 Tablet 02/14/20 23 Active Active Problems Problem Noted Date Diagnosed Date Abnormal EKG 04/08/2020 Opacity of lung on imaging study 01/08/2020 Abnormal CXR 01/08/2020 Tachycardia 10/07/2019 Gastroesophageal reflux disease 07/30/2019 Chronic prescription benzodiazepine use 07/30/19 Parkinson's disease 04/25/2019 Abnormal computed tomography angiography (CTA) o f neck 03/02/2019 Abnormal Doppler ultrasound of carotid artery Bilateral carotid artery stenosis 11/25/2018 Multiple thyroid nodules 11/08/2018 Abdominal wall hernia 11/08/2018 Centrilobular emphysema 08/23/2018 Bilateral leg edema 08/07/[address] 08/07/[address] of the head 02/18/2018 Persistent headaches 02/18/2018 Elevated serum creatinine 02/18/2018 Insomnia 01/10/2018 Chronic pain syndrome 01/10/2018 Intractable cluster headache syndrome 01/10/2018 Anemia, normocytic normochromic 10/03/2017 Obesity (BMI 30-39.9) 02/28/2017 Vitamin D deficiency 08/27/2016 Type 2 diabetes mellitus with insulin therapy Idiopathic gout 07/20/2016 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 Anxiety 07/20/2016 Multiple lung nodules 07/20/2016 Ataxic gait 07/20/2016 Sleep apnea 01/14/2015 Incisional hernia 08/12/2014 Depression Nonalcoholic steatohepatitis Esophageal reflux Fibromyalgia Glaucoma Gout Hyperlipidemia Systemic hypertension Incisional hernia Resolved Problems Problem Noted Date Diagnosed Date Resolved Date Type 2 diabetes mellitus Immunizations Immunization Administration Dates Next Due Influenza Vaccine greater than 3 yrs 11/05/2009, 12/03/2008 Influenza Vaccine less than 3 yrs 12/07/2019 Influenza, Seasonal, Injectable, Undefined 12/06 PNEUMONIA ADULT IM [id number] 04/13/2009 Td (Adult) 04/13/2009 Family History Medical History Relation Name Comments Renal Failure Brother Diabetes Father Parkinsonism Father Stroke Father Diabetes Mother Heart Attack Mother Stroke Sister 1 Heart Disease Sister 2 Relation Name Status Comments Brother Father Mother Sister 1 Sister 2 Social History Tobacco Use Types Packs/Day Years Used Date Smoking Tobacco: Former Cigarettes 1 39 0 04/06/1960 - 04/06/1999 Smokeless Tobacco: Never Tobacco Cessation:Counseling Given: Not Answered Comments:QUIT 1999 Alcohol Use Standard Drinks/Week Comments [...] on file Sexual Orientation Not on file Last Filed Vital Signs Vital Sign Reading Time Taken Comments Blood Pressure 118/54 06/20/2022 2:00 PM CDT Pulse 86 06/20/2022 2:00 PM CDT Temperature 36.4 C (97.6 F) 06/20/2022 2:00 PM CDT Respiratory Rate 18 06/20/2022 2:00 PM CDT Oxygen Saturation 94% 06/20/2022 2:00 PM CDT Inhaled Oxygen Concentration - - Weight 71.6 kg (157 lb 14.4 oz) 06/20/2022 2:00 PM CDT Height 147.3 cm (4' 10) 06/20/2022 2:00 PM CDT Body Mass Index 33 06/20/2022 2:00 PM CDT Plan of Treatment Health Maintenance Due Date Last Done Comments Diabetes: Foot Exam 1945 TdaP Immunization 1945 Zoster Immunization (1 of 2) 12/03/1993 Pneumococcal Immunization (50+ years) (2 of 2 - PCV) 04/13/2010 04/13/2009 DEXA Bone Density 06/08/2017 06/09/2015 Respiratory Syncytial Virus (RSV) Immunization (Adult) (1 - 1-dose 75+ series) 12/03/2018 Diabetes: Eye Exam 11/17/2021 11/17/2020, 0 07/19/2019, 08/26/2016 Diabetes: Nephropathy Screening 09/15/2022 09/15/2021, 07/31/2020, 11/25/2019, Additional history exists SARS-COV-2 Immunization ( season) 2023 Diabetes: Hemoglobin A1c 03/27/2024 024, 09/25/2023, 09/19/2022, Additional history exists Influenza Immunization (Season Ended) 2024 12/07/2019, 12/07/2019, 11/05/2009, Additional history exists Pneumococcal Immunization Combined Discontinued 04/13/2009 Colonoscopy High Risk Discontinued 11/11/2013 Colonoscopy Discontinued 11/11/2013 Colorectal Cancer Screening Discontinued Hepatitis C Virus (HCV) Screening Completed 07/31/2020 Cologuard Discontinued Hepatitis B Immunization Aged Out No longer eligible based on patient's age to complete this topic Human Papillomavirus (HPV) Immunization Aged Out No longer eligible based on patient's age to complete this topic Immunochemical Fecal Occult Blood Discontinued Meningococcal Immunization (ACWY) Aged Out No longer eligible based on patient's age to complete this topic Rotavirus Immunization Aged Out No lo nger eligible based on patient's age to complete this topic Medical Devices Implanted Type Area Bean Picker Device Identifier Shelf Expiration Date Model / Serial / Lot System Fix 5mm Sorbafix 30 Abs Fastener Loprfl Hollow Core Atraumatic Blunt Tip Hernia Repair Lf - [id number] Implanted:Qty: 1 on 12/13/2018 by NickSanty reyes MD at [facility] IMPLANT N/A: Abdomen [employer] 08/24/2020 [id number] / [id number] / [id number] M[address] S[address] Sepra Echo Ps 6in Mfl Ltwt Abs Loprfl Strl Seprafilm Polyp Hydrogel [place] - [id number] Implanted:Qty: 1 on 12/13/2018 by Santy Romero MD at [facility] IMPLANT N/A: Abdomen [employer] 02/24/2020 [id number] / [id number] / [id number] System Fix 5mm Sorbafix 30 Abs Fastener Loprfl Hollow Core Atraumatic Blunt Tip Hernia Repair Lf - [id number] Implanted:Qty: 1 on 12/13/2018 by Santy Romeor MD at [facility] IMPLANT N/A: Abdomen [employer] 08/24/2020 [id number] / [id number] / [id number] Procedures Procedure Name Priority Date/Time Associated Diagnosis Comments POCT GLYCOSYLATED HEMOGLOBIN Routine 09/25/2023 CMP (COMPREHENSIVE METABOLIC PANEL) Routine 09/15/2021 12:00 AM CDT Hyperlipidemia, unspecified hyperlipidemia type HM DILATED EYE EXAM 11/17/2020 1 2:00 AM CDT HEPATITIS C ANTIBODY Routine 07/31/2020 Encounter for hepatitis C screening test for low risk patient COLONOSCOPY Routine 11/11/2013 from Last 3 Months or Most Recently Relevant to Health Maintenance Results * (ABNORMAL) POCT GLYCOSYLATED HEMOGLOBIN (09/25/2023) HGB-A1C 9.1(A) 4 - 6 % Blood 09/25/2023 Historical Provider POINT OF CARE TESTING (HE[facility]ELARDE) Final Result * CMP (COMPREHENSIVE METABOLIC PANEL) (09/15/2021 12:00 AM CDT) Blood 09/15/2021 Kashif Quispe MD CHEMISTRY ORDERABLES Silvana l Result SCAN * DILATED EYE EXAM (11/17/2020 12:00 AM CDT) 11/17/2020 us Not On File Provider PROCEDURE/MINOR SURGICAL OR DERABLES Final Result SCAN * HEPATITIS C ANTIBODY (07/31/2020) Blood Kashif Quispe MD CHEMISTRY ORDERABLES Silvana l Result * COLONOSCOPY (11/11/2013) Kashif Quispe MD PROCEDURE/MINOR SURGICAL ORDERABLES Final Result from Last 3 Months or Most Recently Relevant to Health Maintenance Insurance MEDICAID [place] MEDICARE C [employer] Care Teams Configuration Management Analyst Relationship Specialty Start Date End Date Kashif Quispe MD [address] [place] [address] PCP - General Family Medicine 09/27/23
--- OUTSIDE RECORDS SUMMARY | 2024-07-28 19:49 | XMS_ITS | Encounter Summary ---
Author Organization [facility] Address [address] [place] [address] Phone Care Team Providers Care Appeals Board Referee Name Role Phone Kashif Quispe MD Primary Care Provider [phone] [phone] Kashif Quispe MD Primary Care Provider +1 -[phone] Reason for Visit * Reason Comments Medication Refill Encounter Details Date Type Department Care Team (Late st Contact Info) Description 11/11/2021 [facility]ill [facility] [address] [place] [address] Kashif Quispe MD [address] [address] Medication Refill Social History Tobacco Use Types [...] Telephone Encounter - Blanca Sandoval RN - 11/11/2021 11:45 AM CDT PDMP 10/09/21 Medication failed the protocol, provider to review and approve the medication order if appropriate. Requested Prescriptions Pending Prescriptions Disp Refills clonazePAM (KlonoPIN) 1 MG Tablet [Pharmacy Med Name: CLONAZEPAM 1MG TABLETS] 30 Tablet Sig: TAKE 1 TABLET BY MOUTH EVERY NIGHT Not Delegated - Clonazepam Protocol Failed - 11/11/2021 11:37 AM Failed - This refill cannot be [...] Total Score: 0 04/20/19 19 1:00 PM ELEVATOR STARTER documented as of this encounter Care Teams Appeals Board Referee Relationship Specialty Start Date End Date Kashif Quispe MD #[address] [address] PCP - General Family Medicine 01/19/15 02/12/23 Kashif Quispe MD #[address] [address] PCP - General Family Medicine 09/27/23 documented as of this encounter
--- OUTSIDE RECORDS SUMMARY | 2024-07-28 19:49 | XMS_ITS | Encounter Summary ---
Author Organization [facility] Address [address] [place] [address] Phone Care Team Providers Care Embossing Press Operator Name Role Phone Kashif Quispe MD Primary Care Provider [phone] [phone] Kashif Quispe MD Primary Care Provider +1 -[phone] Reason for Visit * Reason Onset Date Comments Medication Refill 02/20/2020 Encounter Details Date Type Department Care Team (Late st Contact Info) Description 02/20/2020 Refill [facility] [address]2 [place] [address] Kashif Quispe MD #[address] [id number] Medication Refill Social History Tobacco Use Types [...] on file documented as of this encounter Plan of Treatment Not on file documented as of this encounter Visit Diagnoses Not on filedocumented in this encounter Additional Health Concerns Assessment Noted Time PHQ-9 Depression Total Score: 0 04/20/19 19 1:00 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
--- OUTSIDE RECORDS SUMMARY | 2024-07-28 19:49 | XMS_ITS | Encounter Summary ---
Author Organization [facility] Address [address] [place] [address] Phone Care Team Providers Care Flattening Machine Operator Name Role Phone Kashif Quispe MD Primary Care Provider [phone] [phone] Kashif Quispe MD Primary Care Provider +1 [phone] Reason for Visit * Reason Comments Medication Refill Encounter Details Date Type Department Care Team (Late st Contact Info) Description 08/24/2022 Refill [facility] [address] [place] [address] Kashif Quispe MD #[address] [address] Medication Refill Social History Tobacco Use Types [...] encounter Miscellaneous Notes * Telephone Encounter - Na Cervantes RN - 08/24/2022 3:18 PM CDT Medication failed the protocol, provider to review and approve the medication order if appropriate. Requested Prescriptions Pending Prescriptions Disp Refills clonazePAM (KlonoPIN) 1 MG Tablet [Pharmacy Med Name: CLONAZEPAM 1MG TABLETS] 30 Tablet Sig: TAKE 1 TABLET BY MOUTH EVERY NIGHT Not Delegated - Clonazepam Protocol Failed - 08/24/2022 1:38 PM Failed - This refill cannot be delegated Passed - Visit with relevant provider in past 12 months or upcoming 90 days Recent Visits Date Type Provider Dept 06/20/22 Office Visit Alba Abdalla, GEAR SHAPER, MAGAZINE REPAIRER [facility] [place] 02/16/22 Office Visit Ba Kim APRN, MAGAZINE REPAIRER [facility] [place] 09/27/21 Office Visit [facility] Showing recent visits within past 365 days and meeting all other requirements Future Appointments Date Type Provider Dept 10/24/22 Appointment Kashif Quispe MD [facility] Showing future appointments within next 90 days and meeting all other requirements documented in this encounter Plan of Treatment Not on file documented as of this encounter Visit Diagnoses Diagnosis Chronic pain syndrome Chronic prescription benzodiazepine use documented in this encounter Additional Health Concerns Assessment Noted Time PHQ-9 Depression Total Score: 0 04/20/19 19 1:00 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
--- OUTSIDE RECORDS SUMMARY | 2024-07-28 19:49 | XMS_ITS | Encounter Summary ---
Author Organization [facility] Address [address] [place] [address] Phone Care Team Providers Care Washer Cutter Name Role Phone Kashif Quispe MD Primary Care Provider [phone] [phone] Reason for Visit * Reason Comments Medication Refill Encounter Details Date Type Department Care Team (Late st Contact Info) Description 11/09/2023 Refill [facility] [address]2 [place] [address] Kashif Quispe MD #[address] [address] Medication Refill Social History Tobacco Use Types [...] encounter Miscellaneous Notes * Telephone Encounter - Sehr, Sasha L, RN - 11/09/2023 11:01 AM CDT Images from the original note were not included. Hmg CoA Reductase Inhibitors Protocol [id number]/09/2023 05:54 AM Protocol Details Visit with relevant provider in past 12 months or upcoming 90 days Lipid panel in past 12 months CMP in past 12 months Medications being filled by multiple doctors. Not sure if she is even our patient anymore. She cancelled her appointment a year ago in September. Has not been seen by this office since May 2022. Unable to process refill. 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
--- OUTSIDE RECORDS SUMMARY | 2024-07-28 19:49 | XMS_ITS | Encounter Summary ---
Author Organization [facility] Address [address] 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
--- OUTSIDE RECORDS SUMMARY | 2024-07-28 19:49 | XMS_ITS | Encounter Summary ---
Author Organization [facility] Address [address] [place] [address] Phone Care Team Providers Care Sales Solutions Associate Name Role Phone Kashif Quispe MD Primary Care Provider +1 [phone] Kashif Quispe MD Primary Care Provider +1 -[phone] Reason for Visit * Reason Comments Medication Refill Encounter Details Date Type Department Care Team (Late st Contact Info) Description 04/28/2021 Refill [facility] #2 [place] [address] Kashif Quispe MD #[address] [address] Medication Refill Social History Tobacco Use Types [...] Miscellaneous Notes * Telephone Encounter - Na Cevrantes RN - 04/29/2021 8:15 AM CST Medication failed the protocol, provider to review and approve the medication order if appropriate.PDMP reviewed. Last UDS 03/24/21 Requested Prescriptions Pending Prescriptions Disp Refills clonazePAM (KlonoPIN) 1 MG Tablet [Pharmacy Med Name: CLONAZEPAM 1MG TABLETS] 30 Tablet Sig: TAKE 1 TABLET BY MOUTH EVERY NIGHT Not Delegated - Clonazepam Protocol Failed - 04/28/2021 1:18 PM Failed - This refill cannot be delegated Passed - Visit with relevant provider in past 12 months or upcoming 90 days Recent Visits Date Type Provider Dept 03/24/21 Office Visit Kashif Quispe MD [facility] 10/08/20 Office Visit Kashif Quispe MD [facility] 07/08/20 Office Visit Kashif Quispe MD [facility] Showing recent visits within past 365 days and meeting all other requirements Future Appointments Date Type Provider Dept 06/24/21 Appointment Kashif Quispe MD [facility] Showing future appointments within next 90 days and meeting all other requirements RATOR TECHNICIAN documented in this encounter Plan of Treatment Not on file documented as of this encounter Visit Diagnoses Diagnosis Chronic pain syndrome Chronic prescription benzodiazepine use documented in this encounter Additional Health Concerns Assessment Noted Time PHQ-9 Depression Total Score: 0 04/20/19 19 1:00 PM GENERATOR TECHNICIAN documented as of this encounter Care Teams Sales Solutions Associate Relationship Specialty Start Date End Date Kashif Quispe MD #[address] [address] PCP - General Family Medicine 01/19/15 02/12/23 Kashif Quispe MD #[address] [address] PCP - General Family Medicine 09/27/23 documented as of this encounter
--- OUTSIDE RECORDS SUMMARY | 2024-07-28 19:49 | XMS_ITS | Encounter Summary ---
Author Organization [facility] Address [address] [place] [address] Phone Care Team Providers Care Suture Polisher Name Role Phone Kashif Quispe MD Primary Care Provider +1 [phone] Kashif Quispe MD Primary Care Provider +1 -[phone] Reason for Visit * Reason Onset Date Comments Medication Refill 12/07/2020 Encounter Details Date Type Department Care Team (Late st Contact Info) Description 12/07/2020 Refill [facility] #2 [place] [id number] Kashif Quispe MD #[address] [address] Medication Refill Social History Tobacco Use Types [...] Telephone Encounter - Sasha Gutierrez RN - 12/07/2020 11:38 AM CDT Per nursing clinical judgement, provider to review and approve the medication(s) order(s) if appropriate. Requested Prescriptions Pending Prescriptions Disp Refills pantoprazole (PROTONIX) 40 MG Tablet Delayed Response 30 Tablet 6 Sig: Take 1 Tablet by mouth daily. Proton Pump Inhibitors Protocol Passed - 12/07/2020 11:38 AM Passed - Visit with relevant provider [...] 90 days and meeting all other requirements * Telephone Encounter - Crystal Faulkner - 12/07/2020 10:03 AM CDT Received a faxed Rx request from pharmacy. Reordered refill medication(s) requested and pended for nurse and physician/OLEG review. Refill encounter routed to nurse Gabe's pool for processing. documented in this encounter Plan of Treatment Not on file documented as of this encounter Visit Diagnoses Not on filedocumented in this encounter Additional Health Concerns Assessment Noted Time PHQ-9 Depression Total Score: 0 04/20/19 19 1:00 PM HIGH SCHOOL TUTOR documented as of this encounter Care Teams Suture Polisher Relationship Specialty Start Date End Date Kashif Quispe MD #[address] [address] PCP - General Family Medicine 01/19/15 02/12/23 Kashif Quispe MD #[address] [address] PCP - General Family Medicine 09/27/23 documented as of this encounter
--- OUTSIDE RECORDS SUMMARY | 2024-07-28 19:49 | XMS_ITS | Encounter Summary ---
Author Organization [facility] Address [address] [place] [address] Phone Care Team Providers Care Luggage Maker Name Role Phone Kashif Quispe MD Primary Care Provider [phone] [phone] Kashif Quispe MD Primary Care Provider +1 [phone] Reason for Visit * Reason Comments Medication Refill Encounter Details Date Type Department Care Team (Late st Contact Info) Description 11/08/2020 Refill [facility] [address] [place] [address] Kashif Quispe MD #[address] [address] Medication Refill Social History Tobacco Use Types [...] Telephone Encounter - Sasha Gutierrez RN - 11/10/2020 8:54 AM CDT Disp Refills Start End Cholecalciferol (Vitamin D3) 25 MCG (1000 UT) Capsule 90 Capsule 2 refills 10/19/2020 Sig: TAKE 1 CAPSULE BY MOUTH DAILY Sent to pharmacy as: Vitamin D3 25 MCG (1000 UT) Oral Capsule Class: E Prescribe E-Prescribing Status: Receipt confirmed by pharmacy (10/19/2020 10:01 AM CDT) Order Questions ?? Cholecalciferol (Vitamin D3) 25 MCG (1000 UT) Capsule [[id number]] 1001 Status: Active Ordering user: Kashif Quispe MD 10/19/20 1001 Authorized by: Kashif Quispe MD Frequency: ??10/19/20 - Until Discontinued Released by: Kashif Quispe MD 10/19/20 1001 Pharmacy [id number] [place] [id number] documented in this encounter Plan of Treatment Not on file documented as of this encounter Visit Diagnoses Not on filedocumented in this encounter Additional Health Concerns Assessment Noted Time PHQ-9 Depression Total Score: 0 04/20/19 19 1:00 PM CUSTOMER CONTACT SALES ASSOCIATE documented as of this encounter Care Teams Luggage Maker Relationship Specialty Start Date End Date Kashif Quispe MD #[address] [address] PCP - General Family Medicine 01/19/15 02/12/23 Kashif Quispe MD #[address] [address] PCP - General Family Medicine 09/27/23 documented as of this encounter
--- OUTSIDE RECORDS SUMMARY | 2024-07-28 19:49 | XMS_ITS | Encounter Summary ---
Author Organization [facility] Address [address] [place] [address] Phone Care Team Providers Care Dot Etcher Apprentice Name Role Phone Kashif Quispe MD Primary Care Provider [phone] [phone] Kashif Quispe MD Primary Care Provider +1 -[phone] Reason for Visit * Reason Comments Medication Refill Encounter Details Date Type Department Care Team (Late st Contact Info) Description 08/02/2021 Refill [facility] Family [facility] #2 [place] [address] Kashif Quispe MD #[address] [address] Medication Refill Social History Tobacco Use Types [...] Telephone Encounter - Sasha Gutierrez RN - 08/03/2021 11:47 AM CDT PDMP 07/05/21 Medication failed the protocol, provider to review and approve the medication order if appropriate. Requested Prescriptions Pending Prescriptions Disp Refills clonazePAM (KlonoPIN) 1 MG Tablet [Pharmacy Med Name: CLONAZEPAM 1MG TABLETS] 30 Tablet 0 Sig: TAKE 1 TABLET BY MOUTH EVERY NIGHT Not Delegated - Clonazepam Protocol Failed - 08/02/2021 1:48 PM Failed - This refill cannot be [...] Score: 0 04/20/19 19 1:00 PM MANAGER SALT documented as of this encounter Care Teams Dot Etcher Apprentice Relationship Specialty Start Date End Date Kashif Quispe MD #[address] [address] PCP - General Family Medicine 01/19/15 02/12/23 Kashif Quispe MD #[address] [address] PCP - General Family Medicine 09/27/23 documented as of this encounter
--- OUTSIDE RECORDS SUMMARY | 2024-07-28 19:49 | XMS_ITS | Encounter Summary ---
Author Organization [facility] Address [address] [place] [address] Phone Care Team Providers Care Robot Technician Name Role Phone Kashif Quispe MD Primary Care Provider [phone] [phone] Kashif Quispe MD Primary Care Provider [phone] [phone] Reason for Visit * Reason Comments Medication Refill Encounter Details Date Type Department Care Team (Late st Contact Info) Description 07/02/2021 Refill [facility] #2 [place] [address] Kashif Quispe MD #[address] [address] Medication Refill Social History Tobacco Use Types [...] suspected to have Coronavirus/COVID-19? No / Unsure 06/24/2021 1:33 PM CDT documented as of this encounter Miscellaneous Notes * Telephone Encounter - Sasha Gutierrez RN - 07/02/2021 3:33 PM CDT PDMP 06/02/21 Medication failed the protocol, provider to review and approve the medication order if appropriate. Requested Prescriptions Pending Prescriptions Disp Refills clonazePAM (KlonoPIN) 1 MG Tablet [Pharmacy Med Name: CLONAZEPAM 1MG TABLETS] 30 Tablet 0 Sig: TAKE 1 TABLET BY MOUTH EVERY NIGHT Not Delegated - Clonazepam Protocol Failed - 07/02/2021 1:27 PM Failed - This refill cannot be [...] Total Score: 0 04/20/19 19 1:00 PM SUPERVISOR DATA PROCESSING documented as of this encounter Care Teams Robot Technician Relationship Specialty Start Date End Date Kashif Quispe MD #[address] [address] PCP - General Family Medicine 01/19/15 02/12/23 Kashif Quispe MD #2 [facility] [address] [place] [address] PCP - General Family Medicine 09/27/23 documented as of this encounter
--- OUTSIDE RECORDS SUMMARY | 2024-07-28 19:49 | XMS_ITS | Encounter Summary ---
Author Organization [facility] Address [address] [place] [address] Phone Care Team Providers Care Marine Equipment Design Engineer Name Role Phone Kashif Quispe MD Primary Care Provider [phone] [phone] Kashif Quispe MD Primary Care Provider [phone] [phone] Reason for Visit * Reason Onset Date Comments Medication Refill 05/27/2021 Encounter Details Date Type Department Care Team (Late st Contact Info) Description 05/27/2021 Refill [facility] Family [facility] #2 [place] [id number] Kashif Quispe MD #[address] [address] Medication Refill Social History Tobacco Use Types [...] Telephone Encounter - Sasha Gutierrez RN - 05/27/2021 2:26 PM CDT Refills on file lisinopril (PRINIVIL, ZESTRIL) 5 MG Tablet 90 Tablet 3 10/29/2020 Sig - Route: Take 1 Tablet by mouth daily. - Oral Sent to pharmacy as: Lisinopril 5 MG Oral Tablet (PRINIVIL, ZESTRIL) Class: E Prescribe E-Prescribing Status: Receipt confirmed by pharmacy (10/29/2020 ??2:55 PM CDT) Order Questions ?? lisinopril (PRINIVIL, ZESTRIL) 5 MG Tablet [[id number]] 145 Status: Active Mode: Ordering in Standing Orders mode Communicated by: Lennie Stokes RN Ordering user: Lennie Stokes RN 10/29/20 1454 Ordering provider: Kashif Quispe MD Authorized by: Kashif Quispe MD Frequency: Daily 10/29/20 - Until Discontinued Released by: Lennie Stokes RN 10/29/20 1454 Pharmacy [id number] AT [facility] * Telephone Encounter - Crystal Faulkner - 05/27/2021 9:30 AM CDT Received a faxed Rx request [...] Total Score: 0 04/20/19 19 1:00 PM AVIATION MEDICINE SPECIALIST documented as of this encounter Care Teams Marine Equipment Design Engineer Relationship Specialty Start Date End Date Kashif Quispe MD #[address] [address] PCP - General Family Medicine 01/19/15 02/12/23 Kashif Quispe MD #[address] [address] PCP - General Family Medicine 09/27/23 documented as of this encounter
--- OUTSIDE RECORDS SUMMARY | 2024-07-28 19:49 | XMS_ITS | Encounter Summary ---
Author Organization [facility] Address [address] [place] [address] Phone Care Team Providers Care Analytical Engineer Name Role Phone Kashif Quispe MD Primary Care Provider [phone] [phone] Reason for Visit * Reason Comments Medication Refill Encounter Details Date Type Department Care Team (Late st Contact Info) Description 02/13/2023 Refill [facility] Family Medicine [facility] #2 [place] [address] Kashif Quispe MD #[address] [address] Medication Refill Social History Tobacco Use Types [...] Encounter - Sehr, Sasha L, RN - 02/13/2023 10:21 AM CST Medication failed the protocol, provider to review and approve the medication order if appropriate. Requested Prescriptions Pending Prescriptions Disp Refills potassium chloride CR (KLORCON) 10 MEQ Tablet Controlled Release [Pharmacy Med Name: POTASSIUM CL 10MEQ ER TABLETS] 90 Tablet 0 Sig: TAKE 1 TABLET BY MOUTH DAILY Potassium Supplement Protocol Failed - 02/13/2023 5:54 AM Failed - Normal serum potassium in past 12 months No results found for: POTASSIUM, POCTK Passed - Visit with relevant provider in past 12 months or upcoming 90 days Recent Visits Date Type Provider Dept 06/20/22 Office Visit Alba Abdalla APRN, ULTRASONIC WELDING MACHINE OPERATOR [facility] 02/16/22 Office Visit Ba Kim APRN, ULTRASONIC WELDING MACHINE OPERATOR [facility] Showing recent visits within past 365 days and meeting all other requirements Future Appointments No visits were found meeting these conditions. Showing future appointments within next 90 days and meeting all other requirements AND SHANK DEPARTMENT SUPERVISOR documented in this encounter Plan of Treatment Not on file documented as of this encounter Visit Diagnoses Not on filedocumented in this encounter Additional Health Concerns Assessment Noted Time PHQ-9 Depression Total Score: 0 04/20/19 19 1:00 PM BIT AND SHANK DEPARTMENT SUPERVISOR documented as of this encounter Care Teams Analytical Engineer Relationship Specialty Start Date End Date Kashif Quispe MD #[address] [address] PCP - General Family Medicine 09/27/23 documented as of this encounter
--- OUTSIDE RECORDS SUMMARY | 2024-07-28 19:49 | XMS_ITS | Encounter Summary ---
Author Organization [facility] Address [address] [place] [address] Phone Care Team Providers Care Co Founder And Director Name Role Phone Kashif Quispe MD Primary Care Provider +1 [phone] Kashif Quispe MD Primary Care Provider +1 -[phone] Reason for Visit * Reason Comments Medication Refill Encounter Details Date Type Department Care Team (Late st Contact Info) Description 02/10/2022 Refill [facility] #2 [place] [address] Kashif Quispe MD #[address] [address] Medication Refill Social History Tobacco Use Types [...] Telephone Encounter - Rose Glynn RN - 02/10/2022 9:10 AM RECRUITER ACCOUNT MANAGER PDMP 01/16/2022 #30 Medication failed the protocol, provider to review and approve the medication order if appropriate. Requested Prescriptions Pending Prescriptions Disp Refills clonazePAM (KlonoPIN) 1 MG Tablet [Pharmacy Med Name: CLONAZEPAM 1MG TABLETS] 30 Tablet 0 Sig: TAKE 1 TABLET BY MOUTH EVERY NIGHT Not Delegated - Clonazepam Protocol Failed - 02/10/2022 9:00 AM Failed - This refill cannot be delegated Passed - Visit with relevant provider in past 12 months or upcoming 90 days Recent Visits Date Type Provider Dept 09/27/21 Office Visit Kashif Quispe MD [facility] 06/24/21 Office Visit Kashif Quispe MD [facility] 03/24/21 Office Visit Kashif Quispe MD [facility] Showing recent visits within past 365 days and meeting all other requirements Future Appointments Date Type Provider Dept 02/16/22 Appointment Ba Kim APRN, [facility] Showing future appointments within next 90 days and meeting all other requirements UITER ACCOUNT MANAGER documented in this encounter Plan of Treatment Not on file documented as of this encounter Visit Diagnoses Diagnosis Chronic pain syndrome Chronic prescription benzodiazepine use documented in this encounter Additional Health Concerns Assessment Noted Time PHQ-9 Depression Total Score: 0 04/20/19 19 1:00 PM RECRUITER ACCOUNT MANAGER documented as of this encounter Care Teams Co Founder And Director Relationship Specialty Start Date End Date Kashif Quispe MD #[address] [address] PCP - General Family Medicine 01/19/15 02/12/23 Kashif Quispe MD #[address] [address] PCP - General Family Medicine 09/27/23 documented as of this encounter
--- OUTSIDE RECORDS SUMMARY | 2024-07-28 19:49 | XMS_ITS | Encounter Summary ---
Author Organization [facility] Address [address] [place] [address] Phone Care Team Providers Care Entertainment Lawyer Name Role Phone Kashif Quispe MD Primary Care Provider +1 [phone] Kashif Quispe MD Primary Care Provider +1 -[phone] Reason for Visit * Reason Comments Medication Refill Encounter Details Date Type Department Care Team (Late st Contact Info) Description 10/06/2019 Refill [facility] [address] [place] [address] Kashif Quispe MD #[address] [address] Medication Refill Social History Tobacco Use Types Packs/Day Years Used Date Smoking Tobacco: Former Cigarettes 1 39 0 04/06/1960 - 04/06/1999 Smokeless Tobacco: Never Comments:QUIT 1999 Alcohol Use Standard Drinks/Week Comments No 0 (1 standard drink = 0.6 oz pur e alcohol) PHQ-2 Answer Date Recorded PHQ-2 Score 0 10/31/2018 Comments No Sex and Gender Information Value Date Recorded Sex Assigned at Not on file Legal Sex Female 8:28 AM CDT Gender Identity Not on file Sexual Orientation Not on file COVID-19 Exposure Response Date Recorded In the last month, have you been in contact with someone who was confirmed or suspected to have Coronavirus / COVID-19? No / Unsure 10/07/2019 9:56 AM CDT documented as of this encounter Miscellaneous Notes * Telephone Encounter - Na Cervantes RN - 10/07/2019 9:33 AM CDT Refills pended documented in this encounter Plan of Treatment Not on file documented as of this encounter Visit Diagnoses Not on filedocumented in this encounter Additional Health Concerns Assessment Noted Time PHQ-9 Depression Total Score: 0 04/20/19 19 1:00 PM EMERGENCY TECHNICIAN documented as of this encounter Care Teams Entertainment Lawyer Relationship Specialty Start Date End Date Kashif Quispe MD #[address] [address] PCP - General Family Medicine 01/19/15 02/12/23 Kashif Quispe MD #[address] [address] PCP - General Family Medicine 09/27/23 documented as of this encounter
--- OUTSIDE RECORDS SUMMARY | 2024-07-28 19:49 | XMS_ITS | Encounter Summary ---
Author Organization [facility] Address [address] [place] [address] Phone Care Team Providers Care Office Assistant Name Role Phone Kashif Quispe MD Primary Care Provider +1 [phone] Kashif Quispe MD Primary Care Provider +1 -[phone] Reason for Visit * Reason Comments Medication Refill Encounter Details Date Type Department Care Team (Late st Contact Info) Description 06/02/2021 Refill [facility] #2 [place] [address] Kashif Quispe MD #[address] [address] Medication Refill Social History Tobacco Use Types [...] Telephone Encounter - Sasha Gutierrez RN - 06/02/2021 2:55 PM CDT PDMP 04/29/21 Medication failed the protocol, provider to review and approve the medication order if appropriate. Requested Prescriptions Pending Prescriptions Disp Refills clonazePAM (KlonoPIN) 1 MG Tablet [Pharmacy Med Name: CLONAZEPAM 1MG TABLETS] 30 Tablet 0 Sig: TAKE 1 TABLET BY MOUTH EVERY NIGHT Not Delegated - Clonazepam Protocol Failed - 06/02/2021 2:34 PM Failed - This refill cannot be [...] Total Score: 0 04/20/19 19 1:00 PM ADMINISTRATIVE ASST documented as of this encounter Care Teams Office Assistant Relationship Specialty Start Date End Date Kashif Quispe MD #[address] [address] PCP - General Family Medicine 01/19/15 02/12/23 Kashif Quispe MD #[address] [address] PCP - General Family Medicine 09/27/23 documented as of this encounter
--- NOTE | 2024-07-28 19:59 | ECG_ITS ---
Test Date: 2024-07-28 20:14:29 Measurements Intervals [place] Rate: 100 P: 79 VA: 186 QRS: -25 QRSD: 90 T: 92 QT: 362 QTc: 469 Interpretive Statements SINUS TACHYCARDIA WITH OCCASIONAL ECTOPIC PREMATURE COMPLEXES DELAYED PRECORDIAL R/S TRANSITION BORDERLINE ECG No previous ECG available for comparison Electronically Signed On 07-29-2024 06:09:59 CDT by Matthew Fairchild D.O.
[2024-07-28 20:00] VITALS: BP 120/56; PULSE 101; RESP 15; TEMP 36.7; O2SAT 97
[2024-07-28 20:20] LABS: Basophils Absolute Auto 0.1 K/mm3 (0.0-0.1); Basophils Percent Auto 0.4 % (0.2-1.2); Eosinophils Absolute Auto 0.1 K/mm3 (0-0.3); Eosinophils Percent Auto 0.9 % (0-4.4); Hematocrit 40.6 % (37.0-47.0); Hemoglobin 12.7 g/dL (12.0-15.0); Immature Granulocyte Absolute 0.14 K/mm3 (0.00-0.031); Lymphocytes Absolute Auto 1.93 K/mm3 (0.9-3.2); Mean Corpuscular HGB Conc 31.3 g/dl (32-36); Mean Corpuscular Volume 89.6 fl (80-100); Mean Platelet Volume 10.6 fl (7.4-10.4); Monocytes Absolute Auto 0.7 K/mm3 (0.1-0.6); Monocytes Percent Auto 5.2 % (2.6-8.5); Neutrophils Absolute Auto 10.8 K/mm3 (1.3-6.7); Neutrophils Percent Auto 78.5 % (45.5-73.1); Platelet Count Result 159 k/mm3 (150-375); Red Blood Count 4.53 M/mm3 (4.2-5.4); Red Cell Distribution Width 14.4 % (11.5-14.5); White Blood Count 13.8 K/mm3 (4.5-10.0)
[2024-07-28 20:29] LABS: Alanine Aminotransferase 8 U/L (6-35); Albumin Level 3.7 g/dL (3.5-5.1); Alkaline Phosphatase 73 U/L (38-126); Anion Gap 8 mmol/L (4-12); Aspartate Amino Transferase 23 U/L (14-36); Bilirubin,Total 0.7 mg/dL (0.2-1.3); Blood Urea Nitrogen 31 mg/dL (7-17); Calcium 8.8 mg/dL (8.4-10.2); Carbon Dioxide 27 mmol/L (22-30); Chloride 104 mmol/L (98-107); Estimated Glomerular Filt Rate 45; Glucose 163 mg/dL (65-110); Potassium 4.1 mmol/L (3.4-5.0); Sodium 139 mmol/L (137-145)
[2024-07-28 23:32] LABS: Add Urine Microscopic? YES; Appearance Urine Clear (Clear); Bacteria Urine 4+ /hpf; Bilirubin Urine Negative (Negative); Blood Urine Negative (Negative); Color Urine Yellow (Yellow); Glucose Urine UA Trace mg/dL (Negative); Ketones Urine Trace mg/dL (Negative); Leukocyte Esterase Ur 1+ LEU/UL (Negative); Need Manual Microscopic Reviewed; Nitrate Urine Positive (Negative); Protein Urine Negative (Negative); RBC Urine 0-2 /hpf (0-2); Specific Grav Ur 1.021 (1.001-1.035); Squamous Epithelial Cell Urine Few /hpf (Few); Urobilinogen Urine 0.2 mg/dL (<2.0); WBC Urine 0-5 /hpf (0-3)
--- OUTSIDE RECORDS SUMMARY | 2024-07-29 00:25 | XMS_ITS | Encounter Summary ---
Author Organization [facility] Address [address] [place] [address] Phone Care Team Providers Care Residential Insurance Inspector Name Role Phone Kashif Quispe MD Primary Care Provider +1 -[phone] Kashif Quispe MD Primary Care Provider +1 -[phone] Reason for Visit * Reason Comments Medication Refill Encounter Details Date Type Department Care Team (Late st Contact Info) Description 02/20/2022 Refill [facility] #2 [place] [address] Kashif Quispe MD #[address] [address] Medication Refill Social History Tobacco Use Types [...] Coronavirus/COVID-19? No / Unsure 02/16/2022 2:36 PM SERVICE ARCHITECT documented as of this encounter Miscellaneous Notes [...] Dept 02/16/22 Office Visit Ba Kim APRN, INDUSTRIAL PSYCHOLOGY TEACHER [facility] 09/27[facility]21 [facility] 03/24/21 Office Visit Kashif Quispe MD [facility] Showing recent visits within past 365 days and meeting all other requirements Future Appointments No visits were found meeting these conditions. Showing future appointments within next 90 days and meeting all other requirements ICE ARCHITECT documented in this encounter Plan of Treatment Not on file documented as of this encounter Visit Diagnoses Not on filedocumented in this encounter Additional Health Concerns Assessment Noted Time PHQ-9 Depression Total Score: 0 04/20/19 19 1:00 PM SERVICE ARCHITECT documented as of this encounter Care Teams Residential Insurance Inspector Relationship Specialty Start Date End Date Kashif Quispe MD #[address] [address] PCP - General Family Medicine 01/19/15 02/12/23 Kashif Quispe MD #2 [place] [address] PCP - General Family Medicine 09/27/23 documented as of this encounter
--- OUTSIDE RECORDS SUMMARY | 2024-07-29 00:25 | XMS_ITS | Encounter Summary ---
Author Organization [facility] Address [address] [place] [address] Phone Care Team Providers Care Laundry Bag Punch Operator Name Role Phone Kashif Quispe MD Primary Care Provider +1 -[phone] Kashif Quispe MD Primary Care Provider +1 -[phone] Reason for Visit * Reason Comments Medication Refill Encounter Details Date Type Department Care Team (Late st Contact Info) Description 07/18/2022 Refill [facility] #2 [place] [address] Kashif Quispe MD #[address] [address] Medication Refill Social History Tobacco Use Types [...] Provider Dept 06/20/22 Office Visit Alba Abdalla, MALARIOLOGIST, ASSEMBLY MACHINE SET UP MECHANIC [facility] 02/16/22 Office Visit Ba Kim APRN, ASSEMBLY MACHINE SET UP MECHANIC [facility] 09/27/21 Office Visit Kashif Quispe MD [facility] Showing recent visits within past [...] Total Score: 0 04/20/19 19 1:00 PM LIVESTOCK COMMISSION AGENT documented as of this encounter Care Teams Laundry Bag Punch Operator Relationship Specialty Start Date End Date Kashif Quispe MD #[address] [address] PCP - General Family Medicine 01/19/15 02/12/23 Kashif Quispe MD #2 [place] [id number] PCP - General Family Medicine 09/27/23 documented as of this encounter
--- OUTSIDE RECORDS SUMMARY | 2024-07-29 00:25 | XMS_ITS | Encounter Summary ---
Author Organization [facility] Address [address] [place] [address] Phone Care Team Providers Care Campus Administrative Assistant Name Role Phone Kashif Quispe MD Primary Care Provider +1 -[phone] Kashif Quispe MD Primary Care Provider +1 -[phone] Reason for Visit * Reason Comments Medication Refill Encounter Details Date Type Department Care Team (Late st Contact Info) Description 03/16/2022 Refill [facility] #2 [place] [address] Kashif Quispe MD #[address] [address] Medication Refill Social History Tobacco Use Types [...] Coronavirus/COVID-19? No / Unsure 02/16/2022 2:36 PM ANALYSIS SPECIALIST documented as of this encounter Miscellaneous Notes [...] Dept 02/16/22 Office Visit Ba Kim APRN, REQUIREMENTS ENGINEER [facility]21 Office Visit [facility] MD [facility] 06/24/21 Office Visit Kashif Quispe MD [facility] 03/24/21 Office Visit Kashif Quispe MD [facility] Showing recent visits within past 365 days and meeting all other requirements Future Appointments No visits were found meeting these conditions. Showing future appointments within next 90 days and meeting all other requirements YSIS SPECIALIST documented in this encounter Plan of Treatment Not on file documented as of this encounter Visit Diagnoses Diagnosis Chronic pain syndrome Chronic prescription benzodiazepine use documented in this encounter Additional Health Concerns Assessment Noted Time PHQ-9 Depression Total Score: 0 04/20/19 19 1:00 PM ANALYSIS SPECIALIST documented as of this encounter Care Teams Campus Administrative Assistant Relationship Specialty Start Date End Date Kashif Quispe MD #[address] [address] PCP - General Family Medicine 01/19/15 02/12/23 Kashif Quispe MD #2 [place] [address] PCP - General Family Medicine 09/27/23 documented as of this encounter
--- OUTSIDE RECORDS SUMMARY | 2024-07-29 00:26 | XMS_ITS | Encounter Summary ---
Author Organization [facility] Address [address] [place] [address] Phone Care Team Providers Care Director Of Clinical Education Name Role Phone Kashif Quispe MD Primary Care Provider +1 -[phone] Kashif Quispe MD Primary Care Provider +1 -[phone] Reason for Visit * Reason Comments Medication Refill Encounter Details Date Type Department Care Team (Late st Contact Info) Description 09/01/2021 Refill [facility] #2 [place] [address] Kashif Quispe MD #[address] [address] Medication Refill Social History Tobacco Use Types [...] Total Score: 0 04/20/19 19 1:00 PM MOTOR CARRIER INSPECTOR documented as of this encounter Care Teams Director Of Clinical Education Relationship Specialty Start Date End Date Kashif Quispe MD #[address] [address] PCP - General Family Medicine 01/19/15 02/12/23 Kashif Quispe MD #[address] [address] PCP - General Family Medicine 09/27/23 documented as of this encounter
--- OUTSIDE RECORDS SUMMARY | 2024-07-29 00:26 | XMS_ITS | Encounter Summary ---
Author Organization [facility] Address [address] [place] [address] Phone Care Team Providers Care Air Quality Engineer Name Role Phone Kashif Quispe MD Primary Care Provider +1 -[phone] Kashif Quispe MD Primary Care Provider +1 -[phone] Reason for Visit * Reason Comments Medication Refill Encounter Details Date Type Department Care Team (Late st Contact Info) Description 10/05/2021 Refill [facility] #2 [place] [address] Kashif Quispe MD #[address] [address] Medication Refill Social History Tobacco Use Types [...] Total Score: 0 04/20/19 19 1:00 PM SOAPING MACHINE BACK TENDER documented as of this encounter Care Teams Air Quality Engineer Relationship Specialty Start Date End Date Kashif Quispe MD #[address] [address] PCP - General Family Medicine 01/19/15 02/12/23 Kashif Quispe MD #2 [facility] [address] [place] [address] PCP - General Family Medicine 09/27/23 documented as of this encounter
--- OUTSIDE RECORDS SUMMARY | 2024-07-29 00:26 | XMS_ITS | Encounter Summary ---
Author Organization [facility] Address [address] [place] [address] Phone Care Team Providers Care Access Analyst Name Role Phone Kashif Quispe MD Primary Care Provider +1 -[phone] Kashif Quispe MD Primary Care Provider +1 -[phone] Reason for Visit * Reason Onset Date Comments Medication Refill 05/27/2021 Encounter Details Date Type Department Care Team (Late st Contact Info) Description 05/27/2021 Refill [facility] #2 [place] [id number] Kashif Quispe MD #[address] [address] Medication Refill Social History Tobacco Use Types [...] ?? lisinopril (PRINIVIL, ZESTRIL) 5 MG Tablet [[id number]] 1458 Status: Active Mode: Ordering in Standing Orders mode Communicated by: Lennie Stokes RN Ordering user: Lennie Stokes RN 10/29/20 1454 Ordering provider: Kashif Quispe MD Authorized by: Kashif Quispe MD Frequency: Daily 10/29/20 - Until Discontinued Released by: Lennie Stokes RN 10/29/20 1454 Pharmacy [id number] AT [facility] * Telephone Encounter - Crystal Faulkner - [...] Total Score: 0 04/20/19 19 1:00 PM VENEER PRESS OPERATOR documented as of this encounter Care Teams Access Analyst Relationship Specialty Start Date End Date Kashif Quispe MD #[address] [address] PCP - General Family Medicine 01/19/15 02/12/23 Kashif Quispe MD #[address] [address] PCP - General Family Medicine 09/27/23 documented as of this encounter
--- OUTSIDE RECORDS SUMMARY | 2024-07-29 00:26 | XMS_ITS | Encounter Summary ---
Author Organization [facility] Address [address] [place] [address] Phone Care Team Providers Care Dental Service Chief Name Role Phone Kashif Quispe MD Primary Care Provider +1 -[phone] Kashif Quispe MD Primary Care Provider +1 -[phone] Reason for Visit * Reason Comments Medication Refill Encounter Details Date Type Department Care Team (Late st Contact Info) Description 01/13/2022 Refill [facility] #2 [place] [address] Kashif Quispe MD #[address] [address] Medication Refill Social History Tobacco Use Types [...] 90 days and meeting all other requirements AL SERVICES OFFICER documented in this encounter Plan of Treatment Not on file documented as of this encounter Visit Diagnoses Diagnosis Chronic pain syndrome Chronic prescription benzodiazepine use documented in this encounter Additional Health Concerns Assessment Noted Time PHQ-9 Depression Total Score: 0 04/20/19 19 1:00 PM ANIMAL SERVICES OFFICER documented as of this encounter Care Teams Dental Service Chief Relationship Specialty Start Date End Date Kashif Quispe MD #[address] [address] PCP - General Family Medicine 01/19/15 02/12/23 Kashif Quispe MD #[address] [address] PCP - General Family Medicine 09/27/23 documented as of this encounter
--- OUTSIDE RECORDS SUMMARY | 2024-07-29 00:26 | XMS_ITS | Encounter Summary ---
Author Organization [facility] Address [address] [place] [address] Phone Care Team Providers Care Dental Hygiene Professor Name Role Phone Kashif Quispe MD Primary Care Provider +1 -[phone] Kashif Quispe MD Primary Care Provider +1 -[phone] Reason for Visit * Reason Comments Medication Refill Encounter Details Date Type Department Care Team (Late st Contact Info) Description 11/11/2021 Refill [facility] #2 [place] [address] Kashif Quispe MD #[address] [address] Medication Refill Social History Tobacco Use Types [...] Total Score: 0 04/20/19 19 1:00 PM BRAKE MECHANIC documented as of this encounter Care Teams Dental Hygiene Professor Relationship Specialty Start Date End Date Kashif Quispe MD #[address] [address] PCP - General Family Medicine 01/19/15 02/12/23 Kashif Quispe MD #[address] [address] PCP - General Family Medicine 09/27/23 documented as of this encounter
--- OUTSIDE RECORDS SUMMARY | 2024-07-29 00:26 | XMS_ITS | Encounter Summary ---
Author Organization [facility] Address [address] [place] [address] Phone Care Team Providers Care Business Intelligence Developer Name Role Phone Kashif Quispe MD Primary Care Provider +1 -[phone] Kashif Quispe MD Primary Care Provider +1 -[phone] Reason for Visit * Reason Comments Medication Refill Encounter Details Date Type Department Care Team (Late st Contact Info) Description 10/17/2020 [facility]ill [facility] [address] [place] [address] Kashif Quispe MD #[address] [address] Medication Refill Social History Tobacco Use Types [...] ago Hyperlipidemia, unspecified hyperlipidemia type [facility] - Kashif Gonsales MD 3 months ago Hyperlipidemia, unspecified hyperlipidemia type [facility] - Kashif Gonsales MD 6 months ago Essential hypertension [facility] Kashif Brewster MD 9 months ago Pneumonia, unspecified organism [facility] - Kashif Gonsales MD 10 months ago Chest heaviness [facility] - Kashif Gonsales MD Upcoming Appointments Future Appointments In 2 months Kashif Quispe MD [facility] Carl [facility] - Recent and Past Visits Recent Visits [...] Total Score: 0 04/20/19 19 1:00 PM FOURCHETTE SEWER documented as of this encounter Care Teams Business Intelligence Developer Relationship Specialty Start Date End Date Kashif Quispe MD #[address] [address] PCP - General Family Medicine 11/23/15 12/17/23 Kashif Quispe MD #2 [place] [address] PCP - General Family Medicine 09/27/23 documented as of this encounter
--- OUTSIDE RECORDS SUMMARY | 2024-07-29 00:26 | XMS_ITS | Encounter Summary ---
Author Organization [facility] Address [address] [place] [address] Phone Care Team Providers Care Brim Cutter Name Role Phone Kashif Quispe MD Primary Care Provider +1 -[phone] Kashif Quispe MD Primary Care Provider +1 -[phone] Reason for Visit * Reason Comments Medication Refill Encounter Details Date Type Department Care Team (Late st Contact Info) Description 02/22/2021 Refill [facility] #2 [place] [address] Kashif Quispe MD #[address] [address] Medication Refill Social History Tobacco Use Types [...] 90 days and meeting all other requirements OUT WAITER documented in this encounter Plan of Treatment Not on file documented as of this encounter Visit Diagnoses Not on filedocumented in this encounter Additional Health Concerns Assessment Noted Time PHQ-9 Depression Total Score: 0 04/20/19 19 1:00 PM TAKE OUT WAITER documented as of this encounter Care Teams Brim Cutter Relationship Specialty Start Date End Date Kashif Quispe MD #[address] [address] PCP - General Family Medicine 01/19/15 02/12/23 Kashif Quispe MD #[address] [address] PCP - General Family Medicine 09/27/23 documented as of this encounter
--- OUTSIDE RECORDS SUMMARY | 2024-07-29 00:26 | XMS_ITS | Encounter Summary ---
Author Organization [facility] Address [address] [place] [address] Phone Care Team Providers Care Straw Baler Name Role Phone Kashif Quispe MD Primary Care Provider +1 -[phone] Kashif Quispe MD Primary Care Provider +1 -[phone] Reason for Visit * Reason Comments Medication Refill Encounter Details Date Type Department Care Team (Late st Contact Info) Description 06/22/2022 Refill [facility] #2 [place] [address] Kashif Quispe MD #[address] [address] Medication Refill Social History Tobacco Use Types [...] Dept 06/20/22 Office Visit Alba Abdalla, CUSTOMER SERVICE SALES ASSOCIATE, RING ROLLING MACHINE OPERATOR [facility] 02/16/22 Office Visit Ba Kim CUSTOMER SERVICE SALES ASSOCIATE, RING ROLLING MACHINE OPERATOR [facility] 09/[facility]21 [facility] Office Visit Kashif Quispe MD [facility] Showing recent visits within past 365 days [...] Total Score: 0 04/20/19 19 1:00 PM SOFTWARE COMPUTER SPECIALIST documented as of this encounter Care Teams Straw Baler Relationship Specialty Start Date End Date Kashif Quispe MD #[address] [address] PCP - General Family Medicine 01/19/15 02/12/23 Kashif Quispe MD #2 [place] [id number] PCP - General Family Medicine 09/27/23 documented as of this encounter
--- OUTSIDE RECORDS SUMMARY | 2024-07-29 00:26 | XMS_ITS | Encounter Summary ---
Author Organization [facility] Address [address] [place] [address] Phone Care Team Providers Care Marble Finisher Name Role Phone Kashif Quispe MD Primary Care Provider +1 -[phone] Kashif Quispe MD Primary Care Provider +1 -[phone] Reason for Visit * Reason Comments Medication Refill Encounter Details Date Type Department Care Team (Late st Contact Info) Description 11/08/[facility] [address] [place] [address] Kashif Quispe MD #[address] [address] Medication Refill Social History Tobacco Use Types [...] (Vitamin D3) 25 MCG (1000 UT) Capsule [[id number]] 1001 Status: Active Ordering user: Kashif uQispe MD 10/19/20 1001 Authorized by: Kashif Quispe MD Frequency: ??10/19/20 - Until Discontinued Released by: Kashif Quispe MD 10/19/20 1001 Pharmacy [id number] [place] [address] documented in this encounter Plan of Treatment Not on file documented as of this encounter Visit Diagnoses Not on filedocumented in this encounter Additional Health Concerns Assessment Noted Time PHQ-9 Depression Total Score: 0 04/20/19 19 1:00 PM FRAUD EXAMINER documented as of this encounter Care Teams Marble Finisher Relationship Specialty Start Date End Date Kashif Quispe MD #[address] [address] PCP - General Family Medicine 01/19/15 02/12/23 Kashif Quispe MD #[address] [address] PCP - General Family Medicine 09/27/23 documented as of this encounter
--- OUTSIDE RECORDS SUMMARY | 2024-07-29 00:26 | XMS_ITS | Encounter Summary ---
Author Organization [facility] Address [address] [place] [address] Phone Care Team Providers Care Installer Name Role Phone Kashif Quispe MD Primary Care Provider +1 -[phone] Kashif Quispe MD Primary Care Provider +1 -[phone] Reason for Visit * Reason Onset Date Comments Medication Refill 12/07/2020 Encounter Details Date Type Department Care Team (Late st Contact Info) Description 12/07/2020 Refill [facility] #2 [place] [id number] Kashif Quispe MD #[address] [address] Medication Refill Social History Tobacco Use Types [...] Total Score: 0 04/20/19 19 1:00 PM MOTORCYCLE DELIVERER documented as of this encounter Care Teams Installer Relationship Specialty Start Date End Date Kashif Quispe MD #[address] [address] PCP - General Family Medicine 01/19/15 02/12/23 Kashif Quispe MD #[address] [address] PCP - General Family Medicine 09/27/23 documented as of this encounter
--- OUTSIDE RECORDS SUMMARY | 2024-07-29 00:26 | XMS_ITS | Encounter Summary ---
Author Organization [facility] Address [address] [place] [address] Phone Care Team Providers Care Shredded Filler Hopper Feeder Name Role Phone Kashif Quispe MD Primary Care Provider +1 -[phone] Kashif Quispe MD Primary Care Provider +1 -[phone] Reason for Visit * Reason Comments Medication Refill Encounter Details Date Type Department Care Team (Late st Contact Info) Description 08/02/2021 Refill [facility] #2 [place] [address] Kashif Quispe MD #[address] [address] Medication Refill Social History Tobacco Use Types [...] Total Score: 0 04/20/19 19 1:00 PM LINUX SYSTEMS ENGINEER documented as of this encounter Care Teams Shredded Filler Hopper Feeder Relationship Specialty Start Date End Date Kashif Quispe MD #[address] [address] PCP - General Family Medicine 01/19/15 02/12/23 Kashif Quispe MD #[address] [address] PCP - General Family Medicine 09/27/23 documented as of this encounter
--- OUTSIDE RECORDS SUMMARY | 2024-07-29 00:26 | XMS_ITS | Encounter Summary ---
Author Organization [facility] Address [address] [place] [address] Phone Care Team Providers Care Seasonal Greenery Bundler Name Role Phone Kashif Quispe MD Primary Care Provider +1 -[phone] Kashif Quispe MD Primary Care Provider +1 -[phone] Reason for Visit * Reason Comments Medication Refill Encounter Details Date Type Department Care Team (Late st Contact Info) Description 05/16/2022 Refill [facility] #2 [place] [address] Kashif Quispe MD #[address] [address] Medication Refill Social History Tobacco Use Types [...] [place] 06/24/21 Office Visit Kashif Quispe MD [facility] Showing recent visits within past 365 days and meeting all other requirements Future Appointments Date Type Provider Dept 06/20/22 Appointment Alba Abdalla APRN, CHIEF INFORMATICS OFFICER [facility] Jan Showing future appointments within next 90 days and meeting all other requirements documented in this encounter Plan of Treatment Not on file documented as of this encounter Visit Diagnoses Diagnosis Chronic pain syndrome Chronic prescription benzodiazepine use documented in this encounter Additional Health Concerns Assessment Noted Time PHQ-9 Depression Total Score: 0 04/20/19 19 1:00 PM MERGERS AND ACQUISITIONS MANAGER documented as of this encounter Care Teams Seasonal Greenery Bundler Relationship Specialty Start Date End Date Kashif Quispe MD #[address] [address] PCP - General Family Medicine 01/19/15 02/12/23 Kashif Quispe MD #[address] [address] PCP - General Family Medicine 09/27/23 documented as of this encounter
--- OUTSIDE RECORDS SUMMARY | 2024-07-29 00:26 | XMS_ITS | Encounter Summary ---
Author Organization [facility] Address [address] [place] [address] Phone Care Team Providers Care Hand Funnel Coater Name Role Phone Kashif Quispe MD Primary Care Provider +1 [phone] Kashif Quispe MD Primary Care Provider +1 -[phone] Reason for Visit * Reason Comments Medication Refill Encounter Details Date Type Department Care Team (Late st Contact Info) Description [facility] [facility] [address] [place] [address] Kashif Quispe MD #[address] [address] Medication Refill Social History Tobacco Use Types [...] Outpatient Visits 1 week ago Chest heaviness [facility] Kashif Gonsales MD 2 months ago Hyperlipidemia, unspecified hyperlipidemia type [facility] Kashif Gonsales MD 4 months ago Chronic prescription benzodiazepine use [facility] Kashif Gonsales MD 7 months ago Hyperlipidemia, unspecified hyperlipidemia type [facility] Kashif Gonsales MD 1 year ago Abdominal wall hernia [facility] Kashif Gonsales MD Upcoming Appointments Future Appointments In 1 month [facility]ispe [facility] - Recent and Past Visits Recent Visits Date Type Provider Dept 11/25/19 Office Visit Kashif Quispe MD [facility] 10/07/19 Office Visit Kashif Quispe MD [facility] 07/30/19 Office Visit Kashif Quispe MD [facility] 04/25/19 Office Visit Kashif Quispe MD [facility] 11/08/18 Office Visit Kashif Quispe MD [facility] 10/31/18 Office Visit Ba Kim APN, KENNEL HELPER [facility] Jan Showing recent visits within past 460 days with a meds authorizing provider and meeting all other requirements Future Appointments Date Type Provider Dept 01/07/20 Appointment [facility] Showing future appointments within next 90 days with a meds authorizing provider and meeting all other requirements documented in this encounter Plan of Treatment Not on file documented as of this encounter Visit Diagnoses Not on filedocumented in this encounter Additional Health Concerns Assessment Noted Time PHQ-9 Depression Total Score: 0 04/20/19 19 1:00 PM NURSING INFORMATION SYSTEMS COORDINATOR documented as of this encounter Care Teams Hand Funnel Coater Relationship Specialty Start Date End Date Kashif Quispe MD [address] [address] PCP - General Family Medicine 01/19/15 02/12/23 Kashif Quispe MD #[address] [place] [address] PCP - General Family Medicine 09/27/23 documented as of this encounter
--- OUTSIDE RECORDS SUMMARY | 2024-07-29 00:26 | XMS_ITS | Encounter Summary ---
Author Organization [facility] Address [address] [place] [address] Phone Care Team Providers Care Warehouse Administrative Assistant Name Role Phone Kashif Quispe MD Primary Care Provider +1 [phone] Kashif Quispe MD Primary Care Provider +1 -[phone] Reason for Visit * Reason Comments Medication Refill Encounter Details Date Type Department Care Team (Late st Contact Info) Description 04/13/2022 Refill [facility] #2 [place] [address] Kashif Quispe MD #[address] [address] Medication Refill Social History Tobacco Use Types [...] Rose Glynn RN - 04/13/2022 1:12 PM COUNTRY PRINTER PDMP 03/19/22 #30 Medication failed the protocol, [...] Dept 02/16/22 Office Visit Ba Kim APRN, RELINER [facility] 09/27/21 Office Visit Kash[facility] Quispe MD [facility] 06/24/21 Office Visit Kashif Quispe MD [facility] Jan Showing recent visits within past 365 days and meeting all other requirements Future Appointments Date Type Provider Dept 06/20/22 Appointment Alba Abdalla APRN, RELINER [facility] Showing future appointments within next 90 days and meeting all other requirements TRY PRINTER documented in this encounter Plan of Treatment Not on file documented as of this encounter Visit Diagnoses Diagnosis Chronic pain syndrome Chronic prescription benzodiazepine use documented in this encounter Additional Health Concerns Assessment Noted Time PHQ-9 Depression Total Score: 0 04/20/19 19 1:00 PM COUNTRY PRINTER documented as of this encounter Care Teams Warehouse Administrative Assistant Relationship Specialty Start Date End Date Kashif Quispe MD #[address] [address] PCP - General Family Medicine 01/19/15 02/12/23 Kashif Quispe MD #[address] [address] PCP - General Family Medicine 09/27/23 documented as of this encounter
--- OUTSIDE RECORDS SUMMARY | 2024-07-29 00:26 | XMS_ITS | Encounter Summary ---
Author Organization [facility] Address [address] [place] [address] Phone Care Team Providers Care Airplane Charter Clerk Name Role Phone Kashif Quispe MD Primary Care Provider +1 [phone] Kashif Quispe MD Primary Care Provider +1 -[phone] Reason for Visit * Reason Comments Medication Refill Encounter Details Date Type Department Care Team (Late st Contact Info) Description 07/02/2021 Refill [facility] #2 [place] [address] Kashif Quispe MD #[address] [address] Medication Refill Social History Tobacco Use Types [...] Total Score: 0 04/20/19 19 1:00 PM CATHODE WASHER documented as of this encounter Care Teams Airplane Charter Clerk Relationship Specialty Start Date End Date Kashif Quispe MD #[address] [address] PCP - General Family Medicine 01/19/15 02/12/23 Kashif Quispe MD #2 [facility] [address] [place] [address] PCP - General Family Medicine 09/27/23 documented as of this encounter
--- OUTSIDE RECORDS SUMMARY | 2024-07-29 00:26 | XMS_ITS | Encounter Summary ---
Author Organization [facility] Address [address] [place] [address] Phone Care Team Providers Care Industrial [employer] Teacher Name Role Phone Kashif Quispe MD Primary Care Provider +1 [phone] Kashif Quispe MD Primary Care Provider +1 -[phone] Reason for Visit * Reason Comments Medication Refill Encounter Details Date Type Department Care Team (Late st Contact Info) Description 06/02/2021 Refill [facility] #2 [place] [address] Kashif Quispe MD #[address] [address] Medication Refill Social History Tobacco Use Types [...] Total Score: 0 04/20/19 19 1:00 PM GUN STRIPER documented as of this encounter Care Teams [employer] Teacher Relationship Specialty Start Date End Date Kashif Quispe MD #[address] [address] PCP - General Family Medicine 01/19/15 02/12/23 Kashif Quispe MD #[address] [address] PCP - General Family Medicine 09/27/23 documented as of this encounter
--- OUTSIDE RECORDS SUMMARY | 2024-07-29 00:26 | XMS_ITS | Encounter Summary ---
Author Organization [facility] Address [address] [place] [address] Phone Care Team Providers Care Soap Inspector Name Role Phone Kashif Quispe MD Primary Care Provider +1 -[phone] Kashif Qusipe MD Primary Care Provider +1 -[phone] Reason for Visit * Reason Comments Medication Refill Encounter Details Date Type Department Care Team (Late st Contact Info) Description 04/28/2021 Refill [facility] #2 [place] [address] Kashif Quispe MD #[address] [address] Medication Refill Social History Tobacco Use Types [...] Telephone Encounter - Na Cervantes RN - 04/29/2021 8:15 AM CST Medication [...] 90 days and meeting all other requirements AGE MECHANIC documented in this encounter Plan of Treatment Not on file documented as of this encounter Visit Diagnoses Diagnosis Chronic pain syndrome Chronic prescription benzodiazepine use documented in this encounter Additional Health Concerns Assessment Noted Time PHQ-9 Depression Total Score: 0 04/20/19 19 1:00 PM SALVAGE MECHANIC documented as of this encounter Care Teams Soap Inspector Relationship Specialty Start Date End Date Kashif Quispe MD #[address] [address] PCP - General Family Medicine 01/19/15 02/12/23 Kashif Quispe MD #[address] [address] PCP - General Family Medicine 09/27/23 documented as of this encounter
--- OUTSIDE RECORDS SUMMARY | 2024-07-29 00:26 | XMS_ITS | Encounter Summary ---
Author Organization [facility] Address [address] [place] [address] Phone Care Team Providers Care Toxicology Teacher Name Role Phone Kashif Quispe MD Primary Care Provider [phone] -[phone] Kashif Quispe MD Primary Care Provider +1 -[phone] Reason for Visit * Reason Onset Date Comments Medication Refill 02/20/2020 Encounter Details Date Type Department Care Team (Late st Contact Info) Description 02/20/2020 Refill [facility] Medicine [facility] #2 [place] [address] Kashif Quispe MD #[address] [id number] Medication Refill Social History Tobacco Use Types [...] Total Score: 0 04/20/19 19 1:00 PM SOCIOLOGY ADJUNCT INSTRUCTOR documented as of this encounter Care Teams Toxicology Teacher Relationship Specialty Start Date End Date Kashif Quispe MD #[address] [address] PCP - General Family Medicine 01/19/15 02/12/23 Kashif Quispe MD #[address] [address] PCP - General Family Medicine 09/27/23 documented as of this encounter
--- OUTSIDE RECORDS SUMMARY | 2024-07-29 00:26 | XMS_ITS | Encounter Summary ---
Author Organization [facility] Address [address] [place] [address] Phone Care Team Providers Care Pigment Weigher Name Role Phone Kashif Quispe MD Primary Care Provider +1 -[phone] Kashif Quispe MD Primary Care Provider +1 -[phone] Reason for Visit * Reason Comments Medication Refill Encounter Details Date Type Department Care Team (Late st Contact Info) Description 10/06/2019 Refill [facility] [address] [place] [address] Kashif Quispe MD #[address] [address] Medication Refill Social History Tobacco Use Types [...] Total Score: 0 04/20/19 19 1:00 PM ABRASIVE BAND WINDER documented as of this encounter Care Teams Pigment Weigher Relationship Specialty Start Date End Date Kashif Quispe MD #[address] [address] PCP - General Family Medicine 01/19/15 02/12/23 Kashif Quispe MD #[address] [address] PCP - General Family Medicine 09/27/23 documented as of this encounter
--- OUTSIDE RECORDS SUMMARY | 2024-07-29 00:26 | XMS_ITS | Encounter Summary ---
Author Organization [facility] Address [address] [place] [address] Phone Care Team Providers Care School Physical Therapist Name Role Phone Kashif Quispe MD Primary Care Provider +1 -[phone] Kashif Quispe MD Primary Care Provider +1 -[phone] Reason for Visit * Reason Comments Medication Refill Encounter Details Date Type Department Care Team (Late st Contact Info) Description 02/10/2022 Refill [facility] #2 [place] [address] Kashif Quispe MD #[address] [address] Medication Refill Social History Tobacco Use Types [...] Rose Glynn RN - 02/10/2022 9:10 AM FIRER LOCOMOTIVE CRANE PDMP 01/16/2022 #30 Medication failed the protocol, [...] Provider Dept 02/16/22 Appointment Ba Kim APRN, COMBINER OPERATOR [facility] [place] Showing future appointments within next 90 days and meeting all other requirements R LOCOMOTIVE CRANE documented in this encounter Plan of Treatment Not on file documented as of this encounter Visit Diagnoses Diagnosis Chronic pain syndrome Chronic prescription benzodiazepine use documented in this encounter Additional Health Concerns Assessment Noted Time PHQ-9 Depression Total Score: 0 04/20/19 19 1:00 PM FIRER LOCOMOTIVE CRANE documented as of this encounter Care Teams School Physical Therapist Relationship Specialty Start Date End Date Kashif Quispe MD #[address] [address] PCP - General Family Medicine 01/19/15 02/12/23 Kashif Quispe MD #[address] [address] PCP - General Family Medicine 09/27/23 documented as of this encounter
--- OUTSIDE RECORDS SUMMARY | 2024-07-29 00:26 | XMS_ITS | Encounter Summary ---
Author Organization [facility] Address [address] [place] [address] Phone Care Team Providers Care Tools Administrator Name Role Phone Kashif Quispe MD Primary Care Provider +1 -[phone] Kashif Quispe MD Primary Care Provider +1 -[phone] Reason for Visit * Reason Comments Medication Refill Encounter Details Date Type Department Care Team (Late st Contact Info) Description 12/12/2021 Refill [facility] Family [facility] #2 [place] [address] Kashif Quispe MD #[address] [address] Medication Refill Social History Tobacco Use Types [...] Total Score: 0 04/20/19 19 1:00 PM GAS METER REPAIR SUPERVISOR documented as of this encounter Care Teams Tools Administrator Relationship Specialty Start Date End Date Kashif Quispe MD #[address] [address] PCP - General Family Medicine 01/19/15 02/12/23 Kashif Quispe MD #[address] [address] PCP - General Family Medicine 09/27/23 documented as of this encounter
--- OUTSIDE RECORDS SUMMARY | 2024-07-29 00:27 | XMS_ITS | Encounter Summary ---
Author Organization [facility] Address [address] [place] [address] Phone Care Team Providers Care Lan Engineer Name Role Phone Kashif Quispe MD Primary Care Provider +1 -[phone] Reason for Visit * Reason Comments Medication Refill Encounter Details Date Type Department Care Team (Late st Contact Info) Description 02/13/2023 Refill [facility] Family [facility] #2 [place] [address] Kashif Quispe MD #[address] [address] Medication Refill Social History Tobacco Use Types [...] Dept 06/20/22 Office Visit Alba Abdalla APRN, MACHINE REPAIRMAN [facility] Jan 02/16/22 Office Visit Ba Kim APRN, MACHINE REPAIRMAN [facility] Showing recent visits within past 365 days and meeting all other requirements Future Appointments No visits were found meeting these conditions. Showing future appointments within next 90 days and meeting all other requirements DYEING VAT TENDER documented in this encounter Plan of Treatment Not on file documented as of this encounter Visit Diagnoses Not on filedocumented in this encounter Additional Health Concerns Assessment Noted Time PHQ-9 Depression Total Score: 0 04/20/19 19 1:00 PM WARP DYEING VAT TENDER documented as of this encounter Care Teams Lan Engineer Relationship Specialty Start Date End Date Kashif Quispe MD #[address] [address] PCP - General Family Medicine 09/27/23 documented as of this encounter
--- OUTSIDE RECORDS SUMMARY | 2024-07-29 00:27 | XMS_ITS | Encounter Summary ---
Author Organization [facility] Address [address] [place] [address] Phone Care Team Providers Care Railway Head Tender Name Role Phone Kashif Quispe MD Primary Care Provider +1 -[phone] Kashif Quispe MD Primary Care Provider +1 -[phone] Reason for Visit * Reason Comments Medication Refill Encounter Details Date Type Department Care Team (Late st Contact Info) Description 08/24/2022 Refill [facility] #2 [place] [address] Kashif Quispe MD #[address] [address] Medication Refill Social History Tobacco Use Types [...] Provider Dept 06/20/22 Office Visit Alba Abdalla, STEEL MELTER, COMPUTER TECHNOLOGY TRAINER [facility] 02/16/22 Office Visit Ba Kim APRN, COMPUTER TECHNOLOGY TRAINER [facility] 09/27/21 Office Visit Kashif Quispe MD [facility] Jan Showing recent visits within past [...] Total Score: 0 04/20/19 19 1:00 PM MEMBERSHIP SECRETARY documented as of this encounter Care Teams Railway Head Tender Relationship Specialty Start Date End Date Kashif Quispe MD #[address] [address] PCP - General Family Medicine 01/19/15 02/12/23 Kashif Quispe MD #[address] [address] PCP - General Family Medicine 09/27/23 documented as of this encounter
--- OUTSIDE RECORDS SUMMARY | 2024-07-29 00:27 | XMS_ITS | Encounter Summary ---
Author Organization [facility] Address [address] [place] [address] Phone Care Team Providers Care Veterinarian Assistant Name Role Phone Kashif Quispe MD Primary Care Provider +1 -[phone] Reason for Visit * Reason Comments Medication Refill Encounter Details Date Type Department Care Team (Late st Contact Info) Description 11/09/2023 Refill [facility] #2 [place] [address] Kashif Quispe MD #[address] [address] Medication Refill Social History Tobacco Use Types [...] not included. Hmg CoA Reductase Inhibitors Protocol [id number]/2023 05:54 AM Protocol Details Visit with relevant [...] Total Score: 0 04/20/19 19 1:00 PM ENTRY LEVEL MANAGEMENT documented as of this encounter Care Teams Veterinarian Assistant Relationship Specialty Start Date End Date Kashif Quispe MD #[address] [address] PCP - General Family Medicine 09/27/23 documented as of this encounter
--- OUTSIDE RECORDS SUMMARY | 2024-07-29 00:27 | XMS_ITS | Clinical Summary ---
Author Organization [facility] HIM Care Team Providers Care Supervisor Commissary Production Name Role Phone Kashif Quispe MD Primary Care Provider +1 -[phone] Allergies Active Allergy Reactions Criticality Noted Date [...] this topic Medical Devices Implanted Type Area Limehouse Worker Device Identifier Shelf Expiration Date Model / Serial / Lot System Fix 5mm Sorbafix 30 Abs Fastener Loprfl Hollow Core Atraumatic Blunt Tip Hernia Repair Lf - [id number] Implanted:Qty: 1 on 12/13/2018 by NickSanty reyes MD at [facility] IMPLANT N/A: Abdomen [employer] 08/24/2020 [id number] / [id number] / [id number] M[address] Vent[address] Sepra Echo Ps 6in Mfl Ltwt Abs Loprfl Strl Seprafilm Polyp Hydrogel Marshall - [id number] Implanted:Qty: 1 on 12/13/2018 by Santy Romero MD at [facility] IMPLANT N/A: Abdomen [employer] 02/24/2020 [id number] NUP / [id number] NUP / [id number] System Fix 5mm Sorbafix 30 Abs Fastener Loprfl Hollow Core Atraumatic Blunt Tip Hernia Repair Lf - [id number] Implanted:Qty: 1 on 12/13/2018 by Santy Romero MD at [facility] IMPLANT N/A: Abdomen [employer] 08/24/2020 [id number] / [id number] / [id number] Procedures Procedure Name Priority Date/Time Associated Diagnosis [...] MEDICAID [place] MEDICARE C [employer] Care Teams Supervisor Commissary Production Relationship Specialty Start Date End Date Kashif Quispe MD #2 [place] [address] PCP - General Family Medicine 09/27/23
--- OUTSIDE RECORDS SUMMARY | 2024-07-29 00:27 | XMS_ITS | Encounter Summary ---
Author Organization [facility] Address [address] [place] [address] Phone Care Team Providers Care Automatic Profile Shaper Operator Name Role Phone Kashif Quispe MD Primary Care Provider +1 -[phone] Reason for Visit * Reason Comments Medication Refill Encounter Details Date Type Department Care Team (Late st Contact Info) Description 06/11/2023 Refill [facility] #2 [place] [address] Kashif Quisep MD #[address] [address] Medication Refill Social History Tobacco Use Types [...] Total Score: 0 04/20/19 19 1:00 PM TOOL GRINDER OPERATOR EXTERNAL documented as of this encounter Care Teams Automatic Profile Shaper Operator Relationship Specialty Start Date End Date Kashif Quispe MD #[address] [address] PCP - General Family Medicine 09/27/23 documented as of this encounter
--- OUTSIDE RECORDS SUMMARY | 2024-07-29 00:27 | XMS_ITS | Encounter Summary ---
Author Organization [facility] Address [address] [place] [address] Phone Care Team Providers Care Academic Administrator Name Role Phone Kashif Quispe MD Primary Care Provider +1 -[phone] Reason for Visit * Reason Comments Medication Refill Encounter Details Date Type Department Care Team (Late st Contact Info) Description 03/15/2023 Refill [facility] #2 [place] [address] Kashif Quispe MD #[address] [address] Medication Refill Social History Tobacco Use Types [...] Total Score: 0 04/20/19 19 1:00 PM CREEL HAND documented as of this encounter Care Teams Academic Administrator Relationship Specialty Start Date End Date Kashif Quispe MD #2 [place] [address] PCP - General Family Medicine 09/27/23 documented as of this encounter
--- NOTE | 2024-07-29 00:47 | ED_ITS ---
HPI - Weakness General Chief complaint: Weakness Stated complaint: Weak/confused/coughing- Time Seen by Provider: 07/29/24 00:17 Source: patient and family (daughter) History of Present Illness HPI Narrative: Patient presents with report of weakness and confusion of 3 days duration with a cough productive of increasing phlegm. She has had difficulty ambulating with her walker. Lives alone. Denies underlying respiratory issues. Non smoker. Denies fever/chills, no chest pain or abdominal pain. Denies urinary symptoms. No sick contacts or diarrhea. Patient was reportedly on the ground for 7 hours on Monday. Daughter is concerned she fell but patient denies falling. States she was a bit weak and slid down. Normally she can roll herself onto her hands and knees and push herself back up but she was too weak to do that this time. Related Data Home Medications ?Medication ?Instructions ?Recorded ?Confirmed ?Last Taken ?Type atorvastatin 40 mg tablet 40 mg PO HS 03/01/23 03/15/23 02/28/23 History bimatoprost 0.01 % eye drops 1 drp EACH EYE HS 03/01/23 03/15/23 02/28/23 History (Cindi) bisacodyl 10 mg PO DAILY PRN Constipation 03/01/23 03/15/23 02/13/23 History carbidopa ER 25 mg-levodopa 100 mg 25 - 100 tablet PO TID 03/01/23 03/15/23 02/28/23 History tablet,extended release dorzolamide 22.3 mg-timolol 6.8 1 drp EACH EYE BID 03/01/23 03/15/23 03/01/23 History mg/mL eye drops furosemide 20 mg tablet 20 mg PO QAM 03/01/23 03/15/23 02/28/23 History gabapentin 100 mg capsule 300 mg PO BID 03/01/23 03/15/23 02/28/23 History insulin glargine 100 unit/mL (3 27 unit subcut HS 03/01/23 03/15/23 02/28/23 History mL) subcutaneous pen (Lantus Solostar U-100 Insulin) insulin lispro 100 unit/mL 8 unit subcut TIDWMEAL 03/01/23 03/15/23 02/28/23 History subcutaneous pen (Humalog KwikPen (U-100) Insulin) lisinopril 5 mg tablet 5 mg PO QAM 03/01/23 03/15/23 03/01/23 History mirtazapine 15 mg tablet 30 mg PO HS 03/01/23 03/15/23 02/28/23 History ondansetron 4 mg disintegrating 4 mg translingual PRN 03/01/23 03/15/23 Unknown History tablet pantoprazole 40 mg tablet,delayed 40 mg PO QAM 03/01/23 03/15/23 03/01/23 History release potassium chloride 10 mEq 10 meq PO DAILY 03/01/23 03/15/23 02/28/23 History tablet,extended release quetiapine 100 mg tablet 150 mg PO HS 03/01/23 03/15/23 02/28/23 History albuterol (refill) 90 90 mcg inhalation Q4-6H PRN 03/09/23 03/15/23 Unknown History mcg/actuation aerosol inhaler Shortness Of Breath Or Wheezing apixaban 5 mg tablet (Eliquis) 5 mg PO Q12HR 03/09/23 03/15/23 Unknown History insulin lispro 100 unit/mL See Rx Instructions .Route .COMPLEX 03/09/23 03/15/23 Unknown History subcutaneous pen (Humalog KwikPen (U-100) Insulin) Allergies Allergy/AdvReac Type Severity Reaction Status Date / Time levofloxacin Allergy Severe Rash Verified 07/28/24 19:49 [facility] Past Medical History Medical History (Updated 07/30/24 @ 00:00 by Bobby Orosco) History of home oxygen therapy CHF (congestive heart failure) Atrial fibrillation Diabetic neuropathy Parkinson disease CVA (cerebral vascular accident) DM2 (diabetes mellitus, type 2) HLD (hyperlipidemia) Essential (primary) hypertension COPD (chronic obstructive pulmonary disease) RLS (restless legs syndrome) Surgical History Surgical History (Updated 03/15/23 @ 07:56 by Jorge Hudson DO) H/O carotid endarterectomy History of carpal tunnel surgery History of hysterectomy History of cholecystectomy Family History Family History Father Family history of obesity Cerebrovascular accident Mother Family history of diabetes mellitus in first degree relative Family history of obesity Sibling Family history of kidney disease Social History Social History Smoking packs per day: 1 Smoking cigarettes per day: 20.0 Years smoked: 35 Smoking pack-years: 35.00 Smoking status: Former smoker Tobacco type: cigarettes Smoking end date: 02/27/97 Alcohol intake: never Substance use: never Do You Feel Safe in your Home?: Yes Lack of Transportation: No Lack of Food: Never True Current Housing: I Have Housing Concerned About Future Housing: No Difficulty Paying Gas/Electric Bills: No Difficulty Paying for Meds: No Currently Unemployed: No Education: Decline to Answer Difficulty w/ Childcare or Family Care: No Living arrangements: alone Additional living arrangements comments: previously at [facility] care concerns: No Exam 2 Narrative: GENERAL: well-nourished, and in no acute distress. HEAD: Normocephalic, atraumatic. EYES: Non injected, non icteric ENT: Nares clear, no rhinorrhea or epistaxis. Gross auditory acuity intact. NECK: Supple. No meningismus. CHEST: Speaking in full sentences. No respiratory distress. Lungs clear. HEART: Regular rate and rhythm. . ABDOMEN: Soft, nondistended. No rigidity or guarding. Not peritoneal EXTREMITIES: Some weakness in bilateral lower extremities, suspect effort. No lower extremity edema. SKIN: Warm, dry, no rash. NEURO: No focal deficits. Alert and oriented. Answering questions. Following commands. Normal speech without aphasia or dysarthria. PSYCH: Normal mood and affect. Course Vital Signs Vital signs: Vital Signs Temperature 98.1 F 07/28/24 20:00 Pulse Rate 101 H 07/28/24 20:00 Respiratory Rate 15 07/28/24 20:00 Blood Pressure 120/56 L 07/28/24 20:00 Pulse Oximetry 97 07/28/24 20:00 Oxygen Delivery Room Air 07/28/24 20:00 Temperature 98.1 F 07/28/24 20:00 Pulse Rate 76 07/29/24 06:51 Respiratory Rate 15 07/29/24 06:51 Blood Pressure 130/81 07/29/24 06:51 Pulse Oximetry 97 07/29/24 06:51 Oxygen Delivery Room Air 07/28/24 20:00 MDM - Weakness MDM Narrative Medical decision making narrative: Patient presents with report of weakness, confusion, and a cough of 3 days duration. Reportedly on the ground for several hours Bhanu and didn't have the strength to get herself back up but adamently deneis a fall. In the emergency department she is afebrile with vital signs that are acceptable although a slightly low diastolic blood pressure but mean arterial pressure 77mmHg. She also has mild tachycardia. She has a leukocytosis. No anemia or thrombocytopenia. She has an acute kidney injury. IV fluids ordered. Hyperglycemia without anion gap acidosis. BNP not elevated to a degree to suggest acute heart failure based on the reference range of the assay for patient's age. D-dimer lab unable to be processed; cancelled by lab. Given this, plan was to proceed with CT imaging, will make it CTA to be comprehensive. Initially, the nurse did indicate that she was worried that patient was a fall risk given how unsteady she was on her feet when initially going to the bathroom, requiring needing to hold onto objects. Patient states that this was done without using her walker which is what she normally uses. On reassessment she states she is feeling much better. When using a walker, she does perform appropriately and I witnessed this myself. She is now more well appearing. We had extensively discussed the option of being admitted for physical therapy evaluation to get her strength up given that if she remains weak she is a fall risk and could injure herself and she has a history of multiple fractures. She continues to state that she did not fall and knows to use her walker and that she is feeling much better at this time. Return precautions given. Urinalysis with bacteria and nitrate and LE; without red blood cells white blood cells and with squames but out of an abundance of precaution will treat as UTI. First dose antibiotic given in the ED; rest of course to be prescribed. Otherwise stable for dishcarge at this time. Differential Diagnosis Differential diagnosis: Likely acute myocardial infarction, anemia, hypoglycemia, hypothyroidism, rhabdomyolysis, sepsis, dehydration and other (acute viral syndrome, bronchtis; PNA; uti; acute on chronic heart failure) Lab Data Attestation: I reviewed the patient's lab results. 07/28/24 20:11 07/28/24 20:11 Labs: Lab Results 07/28/24 07/28/24 07/29/24 Range/Units 20:11 23:09 02:30 WBC 13.8 H (4.5-10.0) K/mm3 RBC 4.53 (4.2-5.4) M/mm3 Hgb 12.7 (12.0-15.0) g/dL Hct 40.6 (37.0-47.0) % MCV 89.6 (80-100) fl MCH 28.0 (26-34) pg MCHC 31.3 L (32-36) g/dl RDW 14.4 (11.5-14.5) % Plt Count 159 (150-375) k/mm3 MPV 10.6 H (7.4-10.4) fl Immature Gran % (Auto) 1.0 H (0-0.5) % Neut % (Auto) 78.5 H (45.5-73.1) % Lymph % (Auto) 14.0 L (18.3-44.2) % [place] % (Auto) 5.2 (2.6-8.5) % Eos % (Auto) 0.9 (0-4.4) % Baso % (Auto) 0.4 (0.2-1.2) % Lymph # (Auto) 1.93 (0.9-3.2) K/mm3 [place] # (Auto) 0.7 H (0.1-0.6) K/mm3 Eos # (Auto) 0.1 (0-0.3) K/mm3 Baso # (Auto) 0.1 (0.0-0.1) K/mm3 Abs Immat Gran (auto) 0.14 H (0.00-0.031) K/mm3 Absolute Neuts (auto) 10.8 H (1.3-6.7) K/mm3 Absolute Nucleated RBC 0.000 (0.0-0.012) K/mm3 Nucleated RBC % 0.0 (0.0-0.2) % D-Dimer Sodium 139 (137-145) mmol/L Potassium 4.1 (3.4-5.0) mmol/L Chloride 104 (98-107) mmol/L Carbon Dioxide 27 (22-30) mmol/L Anion Gap 8 (4-12) mmol/L BUN 31 H D (7-17) mg/dL Creatinine 1.17 H (0.7-1.0) mg/dL Estim Creat Clear Calc Not Reportable Estimated GFR 45 L (59 - ) Glucose 163 H (65-110) mg/dL Calcium 8.8 (8.4-10.2) mg/dL Total Bilirubin 0.7 (0.2-1.3) mg/dL AST 23 (14-36) U/L ALT 8 (6-35) U/L Alkaline Phosphatase 73 (38-126) U/L Total Creatine Kinase 60 (30-135) U/L Troponin I 0.015 (0.000-0.034) ng/mL NT-Pro-B Natriuret Pep 277 H (19.9-100) pg/mL Total Protein 6.0 L (6.3-8.2) g/dL Albumin 3.7 (3.5-5.1) g/dL TSH 2.720 (0.465-4.680) uIU/mL Urine Color Yellow (Yellow) Urine Appearance Clear (Clear) Urine pH 5.0 (5.0-9.0) Ur Specific [place] 1.021 (1.001-1.035) Urine Protein Negative (Negative) mg/dL Urine Glucose (UA) Trace H (Negative) mg/dL Urine Ketones Trace H (Negative) mg/dL Ur Blood (Man) Negative (Negative) Urine Nitrate Positive H (Negative) Urine Bilirubin Negative (Negative) Urine Urobilinogen 0.2 (<2.0) mg/dL Add Ur Microanalysis Reviewed Leukocyte Esterase Rfl 1+ H (Negative) CHRIS/UL Urine RBC 0-2 (0-2) /hpf Urine WBC 0-5 (0-3) /hpf Ur Squamous Epith Cells Few (Few) /hpf Urine Bacteria 4+ H /hpf Urine Casts 6-10 Influenza A (RT-PCR) Negative (Negative) Influenza B (RT-PCR) Negative (Negative) RSV (RT-PCR) Negative (Negative) SARS-CoV-2 RNA (RT-PCR) Negative (Negative) 07/29/24 Range/Units 02:50 WBC (4.5-10.0) K/mm3 RBC (4.2-5.4) M/mm3 Hgb (12.0-15.0) g/dL Hct (37.0-47.0) % MCV (80-100) fl MCH (26-34) pg MCHC (32-36) g/dl RDW (11.5-14.5) % Plt Count (150-375) k/mm3 MPV (7.4-10.4) fl Immature Gran % (Auto) (0-0.5) % Neut % (Auto) (45.5-73.1) % Lymph % (Auto) (18.3-44.2) % [place] % (Auto) (2.6-8.5) % Eos % (Auto) (0-4.4) % Baso % (Auto) (0.2-1.2) % Lymph # (Auto) (0.9-3.2) K/mm3 [place] # (Auto) (0.1-0.6) K/mm3 Eos # (Auto) (0-0.3) K/mm3 Baso # (Auto) (0.0-0.1) K/mm3 Abs Immat Gran (auto) (0.00-0.031) K/mm3 Absolute Neuts (auto) (1.3-6.7) K/mm3 Absolute Nucleated RBC (0.0-0.012) K/mm3 Nucleated RBC % (0.0-0.2) % D-Dimer Cancelled Sodium (137-145) mmol/L Potassium (3.4-5.0) mmol/L Chloride (98-107) mmol/L Carbon Dioxide (22-30) mmol/L Anion Gap (4-12) mmol/L BUN (7-17) mg/dL Creatinine (0.7-1.0) mg/dL Estim Creat Clear Calc Estimated GFR (59 - ) Glucose (65-110) mg/dL Calcium (8.4-10.2) mg/dL Total Bilirubin (0.2-1.3) mg/dL AST (14-36) U/L ALT (6-35) U/L Alkaline Phosphatase (38-126) U/L Total Creatine Kinase (30-135) U/L Troponin I (0.000-0.034) ng/mL NT-Pro-B Natriuret Pep (19.9-100) pg/mL Total Protein (6.3-8.2) g/dL Albumin (3.5-5.1) g/dL TSH (0.465-4.680) uIU/mL Urine Color (Yellow) Urine Appearance (Clear) Urine pH (5.0-9.0) Ur Specific [place] (1.001-1.035) Urine Protein (Negative) mg/dL Urine Glucose (UA) (Negative) mg/dL Urine Ketones (Negative) mg/dL Ur Blood (Man) (Negative) Urine Nitrate (Negative) Urine Bilirubin (Negative) Urine Urobilinogen (<2.0) mg/dL Add Ur Microanalysis Leukocyte Esterase Rfl (Negative) CHRIS/UL Urine RBC (0-2) /hpf Urine WBC (0-3) /hpf Ur Squamous Epith Cells (Few) /hpf Urine Bacteria /hpf Urine Casts Influenza A (RT-PCR) (Negative) Influenza B (RT-PCR) (Negative) RSV (RT-PCR) (Negative) SARS-CoV-2 RNA (RT-PCR) (Negative) Imaging Data Radiologist's impression: IMPRESSION: Mild interstitial edema. CT Head Stat Rad: No acute intracranial hemorrhage. He no midline shift or mass effect. The territorial amin-white matter differentiation is maintained throughout. Age-related cerebral volume loss. 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 CTA Chest Impression Stat Rad: Motion artifact limits evaluation. No evidence of pulmonary embolism within the pulmonary outflow tract or proximal branches. Mild interlobular septal thickening which can be seen with mild interstitial pulmonary edema. Cardiomegaly. Cholecystectomy changes. Diffuse esophageal thickening which may be inflammatory in nature. No other acute findings. ECG Data EKG #1: Attestation: I personally reviewed and interpreted this ECG as follows: ECG completion date: 07/28/24 ECG completion time: 20:14 Interpretation: Sinus tachycardia at a rate of 100 beats per minute. IN interval 186. QRS 90. QT/QTC 362/419. No T-wave inversions. Occasional ectopic premature complex. Borderline left axis deviation as it is positive in 1 and negative in 3 and AVF. Discharge Plan Discharge Clinical Impression: Weakness, Leukocytosis, PRUDENCE (acute kidney injury), Hyperglycemia due to diabetes mellitus, Abnormal urinalysis, Interstitial edema, Cardiomegaly Patient Disposition: Home Condition: Stable Instructions: Antibiotic Form, Acute Kidney Injury (DC), Weakness (ED), Diabetic Hyperglycemia (ED), Urinary Tract Infection in Older Adults (ED) Additional Instructions: As we discussed, your workup showed that you were slightly dehydrated based on your kidney function numbers but you were given 1 L of IV fluids and after this you were more well-appearing and able to ambulate without difficulty using a walker. Make sure you use your walker at home. Follow-up with your primary care physician. Return to the emergency department with any new or worsening or unmanaged symptoms. Your urinalysis was slightly abnormal and given this you will be treated for urinary tract infection as this can sometimes contribute to feeling unwell and being weak. You received your 1st dose of antibiotic in the emergency department with the rest of the course prescribed. Patient Language: Belgian Prescriptions: New cephalexin 500 mg capsule 500 mg PO Q8H 5 Days Qty: 15 0RF cephalexin 500 mg tablet 500 mg PO Q8H 5 Days Qty: 15 0RF No Action (DME) non-adherent bandage 5 X 9 bandage See Rx Instructions .Route Qty: 10 0RF Rx Instructions: As directed atorvastatin 40 mg tablet 40 mg PO HS bisacodyl 5 mg tablet 10 mg PO DAILY PRN (Reason: Constipation) carbidopa-levodopa 25-100 mg Tablet Extended Release 25 - 100 tablet PO TID dorzolamide-timolol 22.3-6.8 mg/mL drops 1 drp EACH EYE BID furosemide 20 mg tablet 20 mg PO QAM gabapentin 100 mg capsule 300 mg PO BID insulin lispro [Humalog KwikPen Insulin] 100 unit/mL insulin pen 8 unit SUBCUT TIDWMEAL Rx Instructions: IN ADDITION TO SLIDING SCALE INSULIN potassium chloride 10 mEq tablet extended release 10 meq PO DAILY quetiapine 100 mg tablet 150 mg PO HS pantoprazole 40 mg tablet,delayed release (DR/EC) 40 mg PO QAM lisinopril 5 mg tablet 5 mg PO QAM mirtazapine 15 mg tablet 30 mg PO HS ondansetron 4 mg Tablet,Disintegrating 4 mg translingual PRN Rx Instructions: q8 insulin glargine [Lantus Solostar U-100 Insulin] 100 unit/mL (3 mL) insulin pen 27 unit SUBCUT HS [place] 0.01 % drops 1 drp EACH EYE HS loperamide 2 mg capsule 2 mg PO QID PRN (Reason: loose stool) Qty: 30 2RF albuterol (refill) 90 mcg/actuation Aerosol 90 mcg INHALATION Q4-6H PRN (Reason: Shortness Of Breath Or Wheezing) Eliquis 5 mg tablet 5 mg PO Q12HR insulin lispro [Humalog KwikPen Insulin] 100 unit/mL insulin pen See Rx Instructions .ROUTE .COMPLEX Rx Instructions: AC AND HS cephalexin 500 mg capsule 500 mg PO Q12H Qty: 14 0RF clonazepam 1 mg tablet 1 mg PO QHS Qty: 30 0RF Rx Instructions: administer 30 minutes before bedtime hydrocodone-acetaminophen 7.5-325 mg tablet 2 tablet PO Q4H MDD 6 tabs in 24 hours PRN (Reason: pain) Qty: 75 0RF diltiazem HCl 60 mg tablet 60 mg PO TID Qty: 90 6RF Follow-up/Referrals: Majo,Nisha Hung MD [Primary Care Provider] - Time of Disposition: 06:23
[2024-07-29] MEDS: SODIUM CHLORIDE 0.9% IV 1,000 ML 999 ML IV CONT (01:35)
[2024-07-29 02:37] VITALS: PULSE 85
[2024-07-29 02:48] LABS: Creatine Kinase 60 U/L (30-135)
[2024-07-29 02:57] VITALS: BP 124/86; PULSE 85; RESP 17; O2SAT 98
[2024-07-29 02:58] LABS: NT Pro B Type Natriuretic Pept 277 pg/mL (19.9-100)
[2024-07-29 03:02] LABS: Troponin I 0.015 ng/mL (0.000-0.034)
[2024-07-29 03:13] LABS: Influenza A QL RT-PCR Negative (Negative); Influenza B QL RT-PCR Negative (Negative); RSV RNA, RT-PCR Negative (Negative); SARS-CoV-2 RNA PCR Negative (Negative)
[2024-07-29 05:37] VITALS: BP 128/69; PULSE 81; RESP 17; O2SAT 98
[2024-07-29] MEDS: CEPHALEXIN 500 MG CAPSULE PO (06:41)
[2024-07-29 06:48] VITALS: BP 130/81; PULSE 76; RESP 15; O2SAT 97
[2024-07-29 06:51] VITALS: BP 130/81; PULSE 76; RESP 15; O2SAT 97
== END 2024-07-29 06:53 | disposition home or self-care (01) ==
PROVIDERS: Emergency Provider Student in an Organized Health Care Education/Training Program; PCP Emergency Medicine
DX: R53.1 Weakness (principal); D72.829 Elevated white blood cell count, unspecified; N17.9 Acute kidney failure, unspecified; E11.65 Type 2 diabetes mellitus with hyperglycemia; R82.998 Other abnormal findings in urine; R60.9 Edema, unspecified; R00.0 Tachycardia, unspecified; Z20.822 Contact with and (suspected) exposure to COVID-19; Z79.4 Long term (current) use of insulin; J44.9 Chronic obstructive pulmonary disease, unspecified; I11.0 Hypertensive heart disease with heart failure; G20.A1 Parkinson's disease without dyskinesia, without mention of fluctuations; G25.81 Restless legs syndrome; I50.9 Heart failure, unspecified
CPT/HCPCS: 36415; 70450; 71045; 71275; 80053; 81001; 82550; 83880; 84443; 84484; 85025; 87086; 87186; 87637; 93005; 96360; 99284; A9270; J7030; Q9967